=== PATIENT | female | born 1935 | race Two or more races ===

== ENCOUNTER 2020-03-19 08:33 | Outpatient (REF) | payer OTHER, SELFPAY ==
--- NOTE | 2020-03-19 | US_ITS ---
EXAMINATION: US THYROID CLINICAL INFORMATION: Nontoxic multinodular goiter. COMPARISON: Ultrasound soft tissue head/neck thyroid dated 01/16/2019. TECHNIQUE: Linear transducer matthews-scale and color Doppler examination with attention to the region of the thyroid. FINDINGS: SIZE: Measurements of the thyroid lobes and nodules are given in sagittal, anteroposterior and transverse dimensions respectively. Right Thyroid Lobe: 4.3 x 2.9 x 2.3 cm, volume 14.9 mL. Previously 4.4 x 2.5 x 1.9 cm, volume 12.4 mL. Parenchyma: The gland echotexture is heterogeneous. Thyroid vascularity is normal. Left Thyroid Lobe: 5.1 x 2.9 x 2.5 cm, volume 19.8 mL. Previously 5.8 x 3.1 x 2.6 cm, volume 24.2 mL. Parenchyma: The gland echotexture is heterogeneous. Thyroid vascularity is normal. Isthmus: 0.2 cm in maximum AP dimension. Previously 0.4 cm. RIGHT THYROID LOBE: There is 1 nodule seen. 1. Location: Middle. Size: 2.3 x 1.3 x 2.0 cm. Previous: 2.3 x 1.2 x 1.7 cm. Nodule characteristics: Heterogeneous, hypoechoic rind and intranodular flow. ISTHMUS: No nodules. LEFT THYROID LOBE: There is 1 nodule seen. 1. Location: Middle. Size: 3.5 x 2.6 x 2.4 cm. Previous: 3.4 x 2.1 x 2.1 cm. Nodule characteristics: Heterogeneous, hypoechoic rind with intranodular flow. NODES: No lymphadenopathy is seen in the tissue surrounding the thyroid gland. US/US thyroid IMPRESSION: Slightly enlarged heterogenous thyroid gland with bilateral thyroid nodules. The thyroid nodules are abnormal by size, complex and have increased vascularity. By ACR TI-RADS definition, these are suspicious nodules and fine-needle biopsy can be performed.
== END 2020-03-19 08:34 | disposition home or self-care (01) ==
LOC: HO.US 08:33
PROVIDERS: Visit Provider Internal Medicine
DX: E04.2 Nontoxic multinodular goiter (principal)
CPT/HCPCS: 76536

== ENCOUNTER 2020-04-02 11:12 | Outpatient (REF) | payer MEDICARE, MEDICAID, SELFPAY ==
[2020-04-02 12:39] LABS: Albumin Level 4.4 g/dL (3.5-5.0)
[2020-04-02 13:12] LABS: Free T4 (Free Thyroxine) 0.95 ng/dL (0.71-1.85); Vitamin D 25-OH Total 32.1 ng/mL (>30)
[2020-04-02 13:16] LABS: Thyroid Stimulating Hormone 0.59 uIU/mL (0.32-4.0)
[2020-04-03 16:33] LABS: Calcium (PTHI) 10.1 mg/dL (8.6-10.4); PTHI 79 pg/mL (14-64)
== END 2020-04-02 11:13 | disposition home or self-care (01) ==
LOC: HO.LAB 11:12
PROVIDERS: PCP Internal Medicine; Visit Provider Internal Medicine
DX: E04.2 Nontoxic multinodular goiter (principal); E21.3 Hyperparathyroidism, unspecified; M81.0 Age-related osteoporosis without current pathological fracture; E55.9 Vitamin D deficiency, unspecified
CPT/HCPCS: 36415; 82040; 82306; 82310; 83970; 84439; 84443

== ENCOUNTER → 2020-04-03 10:19 | Outpatient (BNVA) | payer MEDICARE, MEDICAID, SELFPAY | PROVIDERS: Visit Provider Internal Medicine Cardiovascular Disease | DX: I35.0 Nonrheumatic aortic (valve) stenosis (principal); I10 Essential (primary) hypertension; E11.9 Type 2 diabetes mellitus without complications | CPT/HCPCS: 93005; 99212 ==

== ENCOUNTER → 2020-04-07 08:54 | Outpatient (BNVA) | payer MEDICARE, MEDICAID, SELFPAY | PROVIDERS: PCP Internal Medicine; Visit Provider Internal Medicine | DX: M81.0 Age-related osteoporosis without current pathological fracture (principal); E21.3 Hyperparathyroidism, unspecified; E04.2 Nontoxic multinodular goiter; E55.9 Vitamin D deficiency, unspecified | CPT/HCPCS: 99212 ==

== ENCOUNTER → 2020-04-10 10:06 | Outpatient (BNVA) | payer MEDICARE, MEDICAID, SELFPAY | PROVIDERS: PCP Internal Medicine; Visit Provider Internal Medicine Cardiovascular Disease ==

== ENCOUNTER → 2020-06-09 07:39 | Outpatient (BNVA) | payer MEDICARE, MEDICAID, SELFPAY | PROVIDERS: PCP Internal Medicine; Visit Provider Internal Medicine | DX: Z13.89 Encounter for screening for other disorder (principal) | CPT/HCPCS: Q3014 ==

== ENCOUNTER → 2020-06-26 09:20 | Outpatient (BNVA) | payer MEDICARE, MEDICAID, SELFPAY | PROVIDERS: PCP Internal Medicine; Visit Provider Internal Medicine Cardiovascular Disease | DX: I35.0 Nonrheumatic aortic (valve) stenosis (principal); I10 Essential (primary) hypertension; Z79.899 Other long term (current) drug therapy | CPT/HCPCS: 99212 ==

== ENCOUNTER 2020-07-03 08:54 | Outpatient (REF) | payer MEDICARE, MEDICAID, SELFPAY ==
[2020-07-03 11:52] LABS: Alanine Aminotransferase 48 U/L (0-31); Albumin Level 4.2 g/dL (3.5-5.0); Alkaline Phosphatase 91 U/L (39-117); Anion Gap 15 (12-20); Aspartate Amino Transferase 39 U/L (5-31); Bilirubin Total 0.5 mg/dL (0.0-1.0); Blood Urea Nitrogen 17 mg/dL (9-16); Calcium 9.4 mg/dL (8.4-10.2); Carbon Dioxide 23 mmol/L (22-29); Chloride 107 mmol/L (96-108); Cholesterol 220 mg/dL; Estimated Glomerular Filt Rate > 60; Glucose Fasting 144 mg/dL (60-99); HDL Cholesterol 58 mg/dL; LDL Cholesterol Calculated 124 mg/dl; Phosphorus 2.8 mg/dL (2.7-4.5); Potassium 3.8 mmol/L (3.3-5.1); Sodium 141 mmol/L (135-145); Total Protein 7.2 g/dL (6.5-8.0); Triglycerides 193 mg/dL
[2020-07-03 12:13] LABS: Free T4 (Free Thyroxine) 0.93 ng/dL (0.71-1.85); Thyroid Stimulating Hormone 0.49 uIU/mL (0.32-4.0); Vitamin D 25-OH Total 29.7 ng/mL (>30)
[2020-07-03 12:25] LABS: Creatinine Urine 19.34 mg/dL; Microalbumin Urine < 5.0 mg/L
[2020-07-03 13:10] LABS: Estimated Average Glucose 160 mg/dL; Hemoglobin A1c % 7.2 %
[2020-07-04 16:12] LABS: Calcium (PTHI) 9.2 mg/dL (8.6-10.4); PTHI 99 pg/mL (14-64)
== END 2020-07-03 08:55 | disposition home or self-care (01) ==
LOC: HO.LAB 08:54
PROVIDERS: Internal Medicine; Visit Provider Nurse Practitioner Family
DX: E21.3 Hyperparathyroidism, unspecified (principal); M81.0 Age-related osteoporosis without current pathological fracture; E11.9 Type 2 diabetes mellitus without complications; R74.8 Abnormal levels of other serum enzymes; E04.2 Nontoxic multinodular goiter; E55.9 Vitamin D deficiency, unspecified
CPT/HCPCS: 36415; 80053; 80061; 82043; 82306; 83036; 83970; 84100; 84439; 84443

== ENCOUNTER 2020-07-03 09:19 | Outpatient (REF) | payer MEDICARE, MEDICAID, SELFPAY | END 2020-07-03 09:20 | disposition home or self-care (01) | LOC: HO.HMGCLDS 09:19 | PROVIDERS: PCP Nurse Practitioner Family; Visit Provider Nurse Practitioner Family | DX: Z13.89 Encounter for screening for other disorder (principal) ==

== ENCOUNTER 2020-07-15 08:41 | Outpatient (REF) | payer MEDICARE, MEDICAID, SELFPAY ==
[2020-07-15 12:07] LABS: Free T4 (Free Thyroxine) 0.96 ng/dL (0.71-1.85); Thyroid Stimulating Hormone 0.72 uIU/mL (0.32-4.0)
[2020-07-15 12:17] LABS: TSH reflex Free T4 0.72 uIU/mL (0.32-4.0)
[2020-07-15 12:23] LABS: Alanine Aminotransferase 23 U/L (0-31); Albumin Level 4.5 g/dL (3.5-5.0); Alkaline Phosphatase 94 U/L (39-117); Anion Gap 13 (12-20); Aspartate Amino Transferase 22 U/L (5-31); Bilirubin Total 0.6 mg/dL (0.0-1.0); Blood Urea Nitrogen 17 mg/dL (9-16); Carbon Dioxide 29 mmol/L (22-29); Chloride 103 mmol/L (96-108); Cholesterol 229 mg/dL; Estimated Glomerular Filt Rate > 60; Glucose Fasting 141 mg/dL (60-99); HDL Cholesterol 63 mg/dL; LDL Cholesterol Calculated 132 mg/dl; Potassium 4.1 mmol/L (3.3-5.1); Sodium 141 mmol/L (135-145); Total Protein 7.5 g/dL (6.5-8.0); Triglycerides 172 mg/dL
[2020-07-15 12:25] LABS: Creatinine Urine 57.58 mg/dL; Microalbum/Creatinine Ratio Ur 32.9 ug/mg cr
[2020-07-16 08:10] LABS: Hepatitis A Antibody IgM 0.33 Index (0-0.79); ~HepC Num1 0.07 S/CO (0.00-0.79); ~Hepatitis A Antibody IgM Nonreactive (Nonreactive); ~Hepatitis C Antibody Nonreactive (Nonreactive)
[2020-07-16 08:25] LABS: HBS Num1 14.65 mIU/mL (0-7.99); HBc Num1 0.04 S/CO (0.00-0.79); HBsAGNum1 0.31 S/CO (0.00-0.99); Hepatitis B Core Antibody Nonreactive (Nonreactive); Hepatitis B Surface Antigen Negative (Negative); ~Hepatitis B Surface Antibody REACTIVE (Nonreactive)
== END 2020-07-15 08:42 | disposition home or self-care (01) ==
LOC: HO.HMGCLDS 08:41
PROVIDERS: PCP Nurse Practitioner Family; Visit Provider Internal Medicine
DX: E11.9 Type 2 diabetes mellitus without complications (principal); R74.8 Abnormal levels of other serum enzymes; E21.3 Hyperparathyroidism, unspecified; E04.2 Nontoxic multinodular goiter
CPT/HCPCS: 36415; 80053; 80061; 82043; 84439; 84443; 86704; 86706; 86709; 86803; 87340

== ENCOUNTER 2020-07-21 08:23 | Outpatient (REF) | payer MEDICARE, MEDICAID, SELFPAY ==
--- NOTE | ~2020-07-21 | US_ITS ---
EXAMINATION: US ABDOMEN COMPLETE CLINICAL INFORMATION: Abnormal levels of other serum enzymes. COMPARISON: Ultrasound renal with bladder 06/10/2014. TECHNIQUE: Real-time imaging of the abdominal viscera. FINDINGS: PANCREAS: Normal. ABDOMINAL AORTA: The proximal, mid, and distal segments are normal in caliber. INFERIOR VENA CAVA: Visualized portions are normal. LIVER: The liver is normal in size. The liver contour is normal. There is diffuse increased echogenicity with areas of focal fatty sparing in the right hepatic lobe. There are 2 anechoic cysts measuring 1.3 x 1.0 x 1.0 and 0.6 x 0.5 x 0.5 cm in right hepatic lobe. There is no intrahepatic biliary duct dilatation seen. GALLBLADDER: The gallbladder is physiologically distended. Multiple mobile gallstones are present. There is a positive ELAN sign. No evidence of gallbladder wall thickening or pericholecystic fluid. COMMON BILE DUCT: Normal in caliber measuring 0.8 cm in diameter. RIGHT KIDNEY: 10.9 No hydronephrosis or focal parenchymal lesions. The kidney measures 10.9 cm in maximum dimension. There is an echogenic stone lower pole measuring 0.3 x 0.2 cm. An anechoic cyst also in the lower pole measures 1.9 x 1.5 x 1.7 cm. LEFT KIDNEY: There is mild left kidney pelvic fullness with a anechoic cyst in lower pole measuring 0.8 x 0.8 x 0.7 cm. No hydronephrosis or renal calculi. The kidney measures 10.4 cm in maximum dimension. SPLEEN: Normal. The spleen measures 8.1 cm in maximum dimension. FREE FLUID: None. US/US abdomen complete IMPRESSION: Hepatic steatosis with areas of focal fatty sparing. There are 2 right hepatic lobe cysts. An echogenic nonobstructive stone and a cyst in the lower pole right kidney. Anechoic cyst lower pole left kidney with mild pelvic fullness. Gallstones with positive ELAN sign.
== END 2020-07-21 08:24 | disposition home or self-care (01) ==
LOC: HO.US 08:23
PROVIDERS: Visit Provider Nurse Practitioner Family
DX: R74.8 Abnormal levels of other serum enzymes (principal)
CPT/HCPCS: 76700

== ENCOUNTER → 2020-08-04 09:09 | Outpatient (BNVA) | payer MEDICARE, MEDICAID, SELFPAY | PROVIDERS: PCP Nurse Practitioner Family; Referring Provider Nurse Practitioner Family; Visit Provider Internal Medicine Cardiovascular Disease ==

== ENCOUNTER → 2020-09-02 09:13 | Outpatient (BNVA) | payer MEDICARE, MEDICAID, SELFPAY | PROVIDERS: PCP Nurse Practitioner Family; Referring Provider Nurse Practitioner Family; Visit Provider Internal Medicine Cardiovascular Disease ==

== ENCOUNTER 2020-10-21 08:17 | Outpatient (REF) | payer MEDICARE, MEDICAID, SELFPAY ==
--- NOTE | ~2020-10-21 | MM_ITS ---
EXAMINATION: BONE DENSITOMETRY CLINICAL INDICATION: Osteoporosis. COMPARISON: Previous BD dated 10/17/2018 and baseline BD dated 10/16/2007. TECHNIQUE: Using a elastic.io DXA System (software version: 13.1) manufactured by [facility], dual-energy x-ray absorptiometry was performed of the lumbar spine and left hip. The images are of good technical quality. Summary results are attached. FINDINGS: AP SPINE L1-L4: Current: BMD 0.942 g/cm2, Z-score 0.0, T-score -2.0, osteopenia, 6.4% increase from previous, 7.5% increase from baseline (<5% change is not significant). Prior: BMD 0.885 g/cm2. Baseline: BMD 0.876 g/cm2. LEFT FEMUR, NECK: Current: BMD 0.640 g/cm2, Z-score -0.5, T-score -2.9, osteoporosis. Prior: BMD 0.624 g/cm2. Baseline: BMD 0.701 g/cm2. LEFT FEMUR, TOTAL: Current: BMD 0.682 g/cm2, Z-score -0.3, T-score -2.6, osteoporosis, 0.0% change from previous, 11.8% decrease from baseline (<5% change is not significant). Prior: BMD 0.682 g/cm2. Baseline: BMD 0.773 g/cm2. IDENTIFIED RISK FACTORS: Early menopause, history of fracture (adult), secondary osteoporosis. HISTORY OF FRACTURE: Wrist. MEDICATIONS: Calcium, vitamin D. MM/XR DEXA axial skeleton IMPRESSION: 1. DIAGNOSIS: Severe osteoporosis based on the lowest T-score value of -2.9 in the femoral neck and history of fracture of wrist applying World Health Organization criteria. 2. 10-YEAR FRACTURE RISK PREDICTION, FRAX: Major osteoporotic fracture (clinical spine, forearm, hip or shoulder) 20.3%. Hip fracture 7.0%. 3. Treatment Recommendations: NOF guidelines recommend consideration for treatment in postmenopausal women and men age 50 and older presenting with the following: -A hip or vertebral (clinical or morphometric) fracture. -T-score less than or equal to -2.5 at the femoral neck or spine after appropriate evaluation to exclude secondary causes. -Low bone mass at the hip or spine and a 10-year fracture probability by FRAX of greater than or equal to 3% for hip fracture or greater than or equal to 20% for major osteoporotic fracture based on the [place] adapted WHO algorithm. 4. Other Recommendations: All treatment decisions require clinical judgment and consideration of individual patient factors, including patient preferences, comorbidities, previous drug use, risk factors not captured in the FRAX model (e.g. frailty, falls, vitamin D deficiency, increased bone turnover, interval significant decline in bone density) and possible under or overestimation of fracture risk by FRAX. Additional medical evaluation for secondary cause of low bone mineral density may be appropriate. FUTURE SCAN RECOMMENDATION: People with diagnosed cases of osteoporosis or at high risk for fracture should have regular bone mineral density tests. For patients eligible for Medicare, routine testing is allowed once every 2 years. The testing frequency can be increased to one year for patients who have rapidly progressing disease, those who are receiving or discontinuing medical therapy to restore bone mass, or have additional risk factors.
== END 2020-10-21 08:18 | disposition home or self-care (01) ==
LOC: HO.MAMMO 08:17
PROVIDERS: Visit Provider Nurse Practitioner Family
DX: M81.0 Age-related osteoporosis without current pathological fracture (principal); Z78.0 Asymptomatic menopausal state
CPT/HCPCS: 77080

== ENCOUNTER → 2020-10-28 08:01 | Outpatient (REF) | payer MEDICARE, MEDICAID, SELFPAY ==
--- NOTE | 2020-10-28 08:05 | CA_ITS ---
Transthoracic Echocardiogram Patient (Last, First, Middle): Vanesa Contreras, Gender: Female Date of : 1935 Age: 85 Procedure Date: 10/28/2020 Procedure Type: Transthoracic Echocardiogram Location: OP Height: 149.86 cm Weight: 61.24 kg BSA: 1.56 m2 Heart Rate: bpm BP: 134 / 76 mmHg [employer] Operator: [facility] MD: Viet Lee MD Symptoms: I35.0 - Nonrheumatic aortic (valve) stenosis Study Quality: Fair ECG Rhythm: Sinus Conclusions: - The left ventricular systolic function is hyperdynamic. The calculated ejection fraction is 71% by biplane method. - There is mild calcification of the aortic valve. There is no aortic valve stenosis. Findings Left Ventricle Normal left ventricular cavity size. There is mildly increased left ventricular wall thickness. The left ventricular systolic function is hyperdynamic. The calculated ejection fraction is 71% by biplane method. There is no evidence of regional wall motion abnormalities. There is no dynamic left ventricular outflow tract obstruction. E/E prime ratio is between 8 and 15 consistent with indeterminate filling pressures. Evidence suggests grade I (mild) diastolic dysfunction. Right Ventricle Normal right ventricular cavity size and systolic function. Atria Both atria are normal in size. Aortic Valve There is mild calcification of the aortic valve. There is no aortic valve stenosis. The mean gradient is 9 mmHg. The aortic valve area is 2.07 cm2. There is trace (trivial) aortic valve regurgitation. Mitral Valve The mitral valve appears normal. There is trace mitral valve regurgitation. There is no mitral valve stenosis. Pulmonic Valve The pulmonic valve was not well visualized. Tricuspid Valve Normal tricuspid valve structure. There is trace tricuspid valve regurgitation. The pulmonary artery systolic pressure is normal. Great Vessels The aortic annulus, sinuses of valsalva, asc aorta, and aortic arch are normal in size. Small plaque is seen in the sino tubular ridge. Venous The inferior vena cava is normal in size and collapses greater than 50% with inspiration. Pericardium/Pleural There is a trivial pericardial effusion. Prior Study Comparison No significant change compared to prior study dated: 10/25/2019. Measurements 2D Linear Measurements RVIDd: 3.17 RVIDd Index: 2.03 IVSd: 1.08 0.6-0.9/0.6-1.0 cm LVIDd: 3.74 3.9-5.3/4.2-5.9 cm LVIDd Index: 2.40 2.4-3.2/2.2-3.1 cm/m2 LVIDs: 2.21 2.0-3.6 cm LVPWd: 1.28 0.7-1.1 cm Ao Root: 2.50 2.1-3.5 cm LA Diam: 3.50 2.7-3.8/3.0-4.0 cm LAIDs Index: 2.24 1.5-2.3 cm/m2 LV Mass: 181.65 67-162/88-224 g LV Mass Index: 116.44 43-95/49-115 g/m2 LVOT Diam: 1.90 3.0+(-)1.3 cm 2D Systolic Function EF 4C: 65.40 >55% EF 2C: 76.50 >55% EF BiP: 71.10 >55% Mitral Valve MV Pk E: 0.50 MV PK A: 0.74 MV Decel Time: 378.00 E/A: 0.70 E'Lateral: 5.22 E'Medial: 3.81 E/E' Med: 13.00 E/E' Lat: 9.50 Aortic Valve AoV Pk Sy: 1.95 AoV Mn Sy: 1.43 AoV VTI: 0.46 AoV Pk Grad: 15.00 Aov Mn Grad: 9.00 JOSE MIGUEL Cont.VTI: 2.07 LVOT LVOT Pk Sy: 1.36 LVOT Mn Sy: 0.92 LVOT VTI: 0.33 LVOT Pk Grad: 7.00 LVOT Mn Grad: 4.00 LVOT Diam: 1.90 LVOT Area: 2.84 Diastolic Function MV Pk E: 0.50 MV Pk A: 0.74 E/A: 0.70 E'Medial: 3.81 E/E' Med: 13.00 E' Laterial: 5.22 E/E' Lat: 9.50 Right Ventricle TAPSE (mm): 27.00 TVS' Sy: 11.70 Tricuspid Valve TR Pk Sy: 2.29 TR Pk Grad: 21.00 RA Press: 3.00 RVSP: 24.00 Great Vessels Aorta Ao Root-2D: 2.50 2.0-3.7 cm Ao Asc: 3.20 2.1-3.4 cm Ao Arch: 2.50 Updated in Other Vendor System with Status of Final Janes May MD electronically signed on 10/28/2020 4:44:21 PM with status of Final
== END ==
LOC: HO.CARD 08:01
PROVIDERS: PCP Internal Medicine; Visit Provider Internal Medicine Cardiovascular Disease
DX: I35.0 Nonrheumatic aortic (valve) stenosis (principal)
CPT/HCPCS: 93306

== ENCOUNTER → 2020-12-15 12:50 | Outpatient (BNVA) | payer MEDICARE, MEDICAID, SELFPAY | PROVIDERS: PCP Nurse Practitioner Family; Referring Provider Nurse Practitioner Family; Visit Provider Internal Medicine Cardiovascular Disease | DX: I35.0 Nonrheumatic aortic (valve) stenosis (principal); I10 Essential (primary) hypertension | CPT/HCPCS: 93005; 99212 ==

== ENCOUNTER 2020-12-18 08:58 | Outpatient (REF) | payer MEDICARE, MEDICAID, SELFPAY ==
[2020-12-18 11:42] LABS: Estimated Average Glucose 146 mg/dL; Hemoglobin A1c % 6.7 %
[2020-12-18 11:50] LABS: Alanine Aminotransferase 18 U/L (0-31); Albumin Level 4.4 g/dL (3.5-5.0); Alkaline Phosphatase 92 U/L (39-117); Anion Gap 13 (12-20); Aspartate Amino Transferase 16 U/L (5-31); Bilirubin Total 0.7 mg/dL (0.0-1.0); Blood Urea Nitrogen 26 mg/dL (9-16); Calcium 9.8 mg/dL (8.4-10.2); Carbon Dioxide 25 mmol/L (22-29); Chloride 103 mmol/L (96-108); Cholesterol 202 mg/dL; Estimated Glomerular Filt Rate 55; Glucose Fasting 158 mg/dL (60-99); HDL Cholesterol 61 mg/dL; LDL Cholesterol Calculated 120 mg/dl; Potassium 3.9 mmol/L (3.3-5.1); Sodium 137 mmol/L (135-145); Total Protein 7.4 g/dL (6.5-8.0); Triglycerides 105 mg/dL
== END 2020-12-18 08:59 | disposition home or self-care (01) ==
LOC: HO.HMGCLDS 08:58
PROVIDERS: PCP Nurse Practitioner Family; Visit Provider Nurse Practitioner Family
DX: E11.9 Type 2 diabetes mellitus without complications (principal)
CPT/HCPCS: 36415; 80053; 80061; 83036

== ENCOUNTER 2021-03-23 11:27 | Outpatient (REF) | payer MEDICARE, MEDICAID, SELFPAY ==
[2021-03-23 14:07] LABS: Estimated Average Glucose 146 mg/dL; Hemoglobin A1c % 6.7 %
[2021-03-23 14:09] LABS: Appearance Urine CLEAR; Color Urine YELLOW; Glucose Urine UA NEG (NEG); Leukocyte Esterase Urine NEG (NEG); Nitrite Urine NEG (NEG); Specific Gravity - Urine 1.015 (1.005-1.025); Urine Blood NEG (NEG); Urine Ketones NEG (NEG); Urine Protein NEG (NEG-TRACE)
[2021-03-23 14:15] LABS: Blood Urea Nitrogen 16 mg/dL (9-16)
[2021-03-23 14:17] LABS: Alanine Aminotransferase 22 U/L (0-31); Albumin Level 4.1 g/dL (3.5-5.0); Alkaline Phosphatase 87 U/L (39-117); Anion Gap 12 (12-20); Aspartate Amino Transferase 21 U/L (5-31); Bilirubin Total 0.5 mg/dL (0.0-1.0); Blood Urea Nitrogen 16 mg/dL (9-16); Calcium 9.9 mg/dL (8.4-10.2); Carbon Dioxide 28 mmol/L (22-29); Chloride 104 mmol/L (96-108); Cholesterol 211 mg/dL; Estimated Glomerular Filt Rate > 60; Glucose Fasting 121 mg/dL (60-99); HDL Cholesterol 62 mg/dL; LDL Cholesterol Calculated 123 mg/dl; Sodium 140 mmol/L (135-145); Total Protein 7.2 g/dL (6.5-8.0); Triglycerides 130 mg/dL
[2021-03-23 14:37] LABS: TSH reflex Free T4 0.41 uIU/mL (0.32-4.0)
[2021-03-23 14:38] LABS: Creatinine Urine 87.14 mg/dL; Microalbum/Creatinine Ratio Ur 5.7 ug/mg cr
== END 2021-03-23 11:28 | disposition home or self-care (01) ==
LOC: HO.HMGCLDS 11:27
PROVIDERS: Internal Medicine; PCP Internal Medicine; Visit Provider Nurse Practitioner Family
DX: M81.0 Age-related osteoporosis without current pathological fracture (principal); E11.9 Type 2 diabetes mellitus without complications
CPT/HCPCS: 36415; 80053; 80061; 81003; 82043; 83036; 84443; 84520

== ENCOUNTER 2021-04-02 07:35 | Outpatient (REF) | payer MEDICARE, MEDICAID, SELFPAY ==
--- NOTE | ~2021-04-02 | US_ITS ---
EXAMINATION: US THYROID CLINICAL INFORMATION: Nontoxic multinodular goiter. COMPARISON: Ultrasound thyroid 03/19/2020 and 01/16/2019. TECHNIQUE: Linear transducer grayscale and color Doppler examination with attention to the region of the thyroid. FINDINGS: SIZE: Measurements of the thyroid lobes and nodules are given in sagittal, anteroposterior and transverse dimensions respectively. Right Thyroid Lobe: 4.3 x 2.8 x 1.9 cm, volume 12.0 mL. Previously 4.3 x 2.9 x 2.3 cm, volume 14.9 mL. Parenchyma: The gland echotexture is heterogeneous. Thyroid vascularity is increased. Left Thyroid Lobe: 5.1 x 2.7 x 2.5 cm, volume 18.0 mL. Previously 5.8 x 3.1 x 2.6 cm, volume 24.2 mL. Parenchyma: The gland echotexture is heterogeneous. Thyroid vascularity is increased. Isthmus: 0.3 cm in maximum AP dimension. Previously 0.2 cm. Estimated total number of nodules greater than or equal to 1 cm: 3. [place] nodules are described as follows: 1. Location: Right mid/inferior. Size: 2.4 x 1.4 x 1.7 cm, volume 3.0 mL. Previously: 2.3 x 1.3 x 2.0 cm, volume 3.1 mL. Nodule characteristics: Composition: Solid/almost completely solid (2). Echogenicity: Hyperechoic (1). Shape: Not taller than wide (0). Margins: Ill-defined (0). Echogenic Foci: None (0). ACR TI-RADS total points: 3 ACR TI-RADS category: 3 Significant change in size (>/= 20% in 2 dimensions and minimal increase of 2 mm or 50% or greater increase in volume): None Change in features: None Change in ACR TI-RADS risk category: Not applicable. 2. Location: Left mid. Size: 3.6 x 2.4 x 2.5 cm, volume 11.3 mL. Previously: 3.5 x 2.6 x 2.4 cm, volume 11.4 mL. Nodule characteristics: Composition: Solid/almost completely solid (2). Echogenicity: Hyperechoic (1). Shape: Not taller than wide (0). Margins: Smooth (0). Echogenic Foci: None (0). ACR TI-RADS total points: 3 ACR TI-RADS category: 3 Significant change in size (>/= 20% in 2 dimensions and minimal increase of 2 mm or 50% or greater increase in volume): None Change in features: None Change in ACR TI-RADS risk category: Not applicable. 3. Location: Left isthmus. New. Size: 1.0 x 1.4 x 1.2 cm, volume 0.9 mL. Previously: New since the previous study. Nodule characteristics: Composition: Solid (2). Echogenicity: Hyperechoic (1). Shape: Taller than wide (3). Margins: Smooth (0). Echogenic Foci: None (0). ACR TI-RADS total points: 6 ACR TI-RADS category: 4 NODES: No lymphadenopathy is seen in the tissue surrounding the thyroid gland. US/US thyroid IMPRESSION: Enlarged heterogeneous and hypervascular thyroid gland consistent with multinodular goiter. Previous nodules are stable. There is a new nodule in the left isthmus with total points of 6. Recommend short-term follow-up in 6 months to one year. ACR TI-RADS RECOMMENDATION REFERENCE: Ultrasound-guided fine-needle aspiration, followup ultrasound, no further follow up. * TR1 (0 point) and TR 2 (2 points): No FNA or follow up * TR3 (3 points): FNA if more than or equal to 2.5 cm in maximum dimension, followup ultrasound in 1, 3 and 5 years if 1.5 to 2.4 cm in maximum dimension. * TR4 (4-6 points): FNA if more than or equal to 1.5 cm in maximum dimension, followup ultrasound in 1, 2, 3 and 5 years if 1 to 1.4 cm in maximum dimension. * TR5 (more than or equal to 7 points): FNA if more than or equal to 1 cm in maximum dimension, followup ultrasound every year for 5 years if 0.5 to 0.9 cm in maximum dimension. * TR3, TR4 or TR5 nodules that are below the size threshold for follow up receive no follow up.
== END 2021-04-02 07:36 | disposition home or self-care (01) ==
LOC: HO.US 07:35
PROVIDERS: PCP Internal Medicine; Visit Provider Internal Medicine
DX: E04.2 Nontoxic multinodular goiter (principal)
CPT/HCPCS: 76536

== ENCOUNTER → 2021-04-13 08:11 | Outpatient (BNVA) | payer MEDICARE, MEDICAID, SELFPAY | PROVIDERS: PCP Nurse Practitioner Family; Visit Provider Internal Medicine | DX: E21.3 Hyperparathyroidism, unspecified (principal); E04.2 Nontoxic multinodular goiter; M81.0 Age-related osteoporosis without current pathological fracture; E55.9 Vitamin D deficiency, unspecified; R73.03 Prediabetes | CPT/HCPCS: 99212 ==

== ENCOUNTER → 2021-06-15 08:37 | Outpatient (BNVA) | payer MEDICARE, MEDICAID, SELFPAY | PROVIDERS: PCP Nurse Practitioner Family; Referring Provider Nurse Practitioner Family; Visit Provider Internal Medicine Cardiovascular Disease | DX: I35.0 Nonrheumatic aortic (valve) stenosis (principal); I10 Essential (primary) hypertension; Z79.899 Other long term (current) drug therapy | CPT/HCPCS: 93005; 99212 ==

== ENCOUNTER → 2021-09-21 08:06 | Outpatient (BNVA) | payer MEDICARE, MEDICAID, SELFPAY | PROVIDERS: PCP Nurse Practitioner Family; Referring Provider Nurse Practitioner Family; Visit Provider Internal Medicine Cardiovascular Disease | DX: I35.0 Nonrheumatic aortic (valve) stenosis (principal); I10 Essential (primary) hypertension | CPT/HCPCS: 99212 ==

== ENCOUNTER 2021-10-15 08:52 | Outpatient (REF) | payer MEDICARE, MEDICAID, SELFPAY ==
--- NOTE | 2021-10-15 09:21 | PM.OP ---
Brief Operative Note Date of Service: 10/15/21 Pre-op diagnosis: Multinodular Thyroid Procedure: EXAMINATION: US THYROID CLINICAL INFORMATION: Multinodular Thyroid COMPARISON: Prior TECHNIQUE: Linear transducer matthews-scale and color Doppler examination with attention to the region of the thyroid. FINDINGS: US was completed of the Patient's thyroid with images obtained of her L isthmus 1.3 cm thyroid nodule. This nodule was found to be isoechoic with regular margins and no concerning characteristics. This was determined to be low suspicion for malignancy, with DEJAH guidelines recommending FNA biopsy only when greater than or equal to 1.5 cm in largest dimension. Discussed with the Patient that no FNA biopsy is indicated today and we will continue with yearly US surveillance of her nodules to assess for any concerning growth or changes in the nodules that would warrant repeat FNA biopsy. All of her questions were answered. She is in agreement with this plan of care. Surgeon: Keena Sherwood, DO Was an Banking Officer used for this Procedure?: No Estimated blood loss (mL): 0
== END 2021-10-15 08:53 | disposition home or self-care (01) ==
LOC: HO.US 08:52
PROVIDERS: Visit Provider Internal Medicine
DX: E04.2 Nontoxic multinodular goiter (principal)
CPT/HCPCS: 76536

== ENCOUNTER → 2021-10-29 12:48 | Outpatient (BNVA) | payer MEDICARE, MEDICAID, SELFPAY | PROVIDERS: PCP Nurse Practitioner Family; Visit Provider Internal Medicine | DX: E04.2 Nontoxic multinodular goiter (principal); E21.3 Hyperparathyroidism, unspecified; M81.0 Age-related osteoporosis without current pathological fracture; E55.9 Vitamin D deficiency, unspecified | CPT/HCPCS: 99212 ==

== ENCOUNTER → 2022-01-07 08:17 | Outpatient (BNVA) | payer MEDICARE, MEDICAID, SELFPAY | PROVIDERS: PCP Nurse Practitioner Family; Referring Provider Nurse Practitioner Family; Visit Provider Internal Medicine Cardiovascular Disease | DX: I35.0 Nonrheumatic aortic (valve) stenosis (principal); I10 Essential (primary) hypertension | CPT/HCPCS: 99212 ==

== ENCOUNTER 2022-01-13 08:19 | Outpatient (REF) | payer MEDICARE, MEDICAID, SELFPAY | END 2022-01-13 08:20 | disposition home or self-care (01) | LOC: HO.SH 08:19 | PROVIDERS: Visit Provider Nurse Practitioner Family | DX: Z01.118 Encounter for examination of ears and hearing with other abnormal findings (principal); H90.3 Sensorineural hearing loss, bilateral | CPT/HCPCS: 92557; 92567 ==

== ENCOUNTER 2023-05-23 09:14 | Outpatient (REF) | payer OTHER, SELFPAY ==
[2023-05-23 11:19] LABS: Appearance Urine Cloudy; Color Urine Dark Yellow; Glucose Urine UA 250 mg/dL (Negative); Leukocyte Esterase Urine Moderate (2+) (Negative); Nitrite Urine Negative (Negative); PH 5.5 (5.0-9.0); Specific Gravity - Urine >= 1.030 (1.005-1.025); UMIC TRIGGER UACC YES; Urine Blood Negative (Negative); Urine Ketones Negative (Negative); Urine Protein Trace mg/dL (Neg-Trace)
[2023-05-23 11:21] LABS: MANUAL DIFF FLAG NO
[2023-05-23 11:26] LABS: Bacteria Urine Trace (None Seen); Hyaline Casts Urine 0-2 /LPF (0-2); RBC Urine 0-2 /HPF (0-2); UACC Culture Trigger YES; WBC Urine >50 /HPF (0-5)
[2023-05-23 11:41] LABS: Basophils Absolute Auto 0.1 X10*3/uL (0.0-0.2); Basophils Percent Auto 0.8 % (0-2); Eosinophils Absolute Auto 0.2 X10*3/uL (0.0-0.4); Eosinophils Percent Auto 3.5 % (0-4); Hematocrit 44.5 % (37.0-47.0); Hemoglobin 15.1 g/dl (12.0-16.0); Imm Gran Abs Auto 0.03 X10*3/uL (0.00-0.03); Imm Gran Pct Auto 0.5 % (0.0-0.4); Lymphocytes Absolute Auto 2.7 X10*3/uL (1.2-4.9); Lymphocytes Percent Auto 41.6 % (20-40); Mean Corpuscular HGB Conc 33.9 g/dl (31.0-35.0); Mean Corpuscular Hemoglobin 29.8 pg (27.0-33.0); Mean Corpuscular Volume 87.9 fL (80.0-98.0); Mean Platelet Volume 11.1 fL (9.4-12.3); Monocytes Absolute Auto 0.5 X10*3/uL (0.1-1.2); Monocytes Percent Auto 7.6 % (2-11); Platelet Count 229 X10*3/uL (160-400); Red Blood Count 5.06 X10*6/uL (4.20-5.50); Red Cell Distribution Width 12.9 % (11.0-16.0); White Blood Count 6.5 X10*3/uL (4.8-10.8)
[2023-05-23 12:02] LABS: Estimated Average Glucose 280 mg/dL; Hemoglobin A1c % 11.4 % (<6.0)
[2023-05-23 12:03] LABS: Alanine Aminotransferase 23 U/L (0-31); Albumin Level 4.1 g/dL (3.5-5.0); Alkaline Phosphatase 94 U/L (39-117); Anion Gap 11 (12-20); Aspartate Amino Transferase 20 U/L (5-31); Bilirubin Total 0.5 mg/dL (0.0-1.0); Blood Urea Nitrogen 15 mg/dL (9-16); Calcium 9.6 mg/dL (8.4-10.2); Carbon Dioxide 28 mmol/L (22-29); Chloride 103 mmol/L (96-108); Cholesterol 219 mg/dL (<200); Estimated Glomerular Filt Rate > 60; Glucose Fasting 269 mg/dL (60-99); HDL Cholesterol 62 mg/dL (>40); LDL Cholesterol Calculated 135 mg/dL (<100); Potassium 4.2 mmol/L (3.3-5.1); Sodium 138 mmol/L (135-145); Total Protein 7.3 g/dL (6.5-8.0); Triglycerides 110 mg/dL (<150)
[2023-05-23 12:20] LABS: Vitamin D 25-OH Total 53.7 ng/mL (>30)
[2023-05-23 12:46] LABS: Creatinine Urine 207.67 mg/dL; Microalbum/Creatinine Ratio Ur 30.8 ug/mg cr (<30)
== END 2023-05-23 09:15 | disposition home or self-care (01) ==
LOC: HO.HMGCLDS 09:14
PROVIDERS: PCP Nurse Practitioner Family; Visit Provider Nurse Practitioner Family
DX: E11.9 Type 2 diabetes mellitus without complications (principal); I10 Essential (primary) hypertension; E55.9 Vitamin D deficiency, unspecified; M81.0 Age-related osteoporosis without current pathological fracture; R82.90 Unspecified abnormal findings in urine
CPT/HCPCS: 36415; 80053; 80061; 81001; 82043; 82306; 82570; 83036; 84443; 85025; 87086

== ENCOUNTER 2023-07-28 08:57 | Outpatient (AMB) | payer OTHER, SELFPAY ==
--- NOTE | 2023-07-28 09:02 | MHC.PC.OV ---
Vital Signs 07/28/23 09:04 Height 4 ft 11 in Weight 129 lb BMI 26.1 BP 120/76 Blood Pressure Location Lt brachial Position Sitting Pulse 57 Pulse Source Pulse Oximeter Pulse Oximetry (%) 96 Oxygen Delivery Method Room Air Intake Visit Reasons: Annual PE Intake Note: Patient here for physical exam. Pt needs a new glucometer Allergies nickel [NICKEL] Allergy (Unknown, Verified 07/28/23 09:04) RASH HAIR DYE Allergy (Unknown, Uncoded 07/28/23 09:04) SWELLING latex Allergy (Unknown, Uncoded 07/28/23 09:04) itch leather products Allergy (Unknown, Uncoded 07/28/23 09:04) Unknown METAL Allergy (Unknown, Uncoded 07/28/23 09:04) RASH,ITCHING Tobacco use date assessed: 07/28/23 Fall risk assessment: No Falls in past year Last assessed Fall Risk: 07/28/23 Dental Screening Dental Screen Date: 07/28/23 Did you have a dental visit in the last 12 months?: Yes Did you have a dental problem in the last 6 months where you did not have access to dental care?: No Was dental information given to patient?: Patient has dentist HPI Annual PE HPI Details Pt is a diabetic, on an ARB and a statin. Last A1C was 11.4, microalbumin is up to date. Denies polyuria, polydipsia, and neuropathy. Pt denies any signs and symptoms of hypoglycemia and does know how to correct it. Will increase her jardiance from 10mg to 25mg. Reinforced the importance of proper diet. Due for eye exam, will refer. Pt needs a new glucometer, will send. Hx of aortic stenosis. Will order repeat echo. Hx of multinodular goiter. Will repeat thyroid US. Bone density has been ordered. Refused pneumonia vaccine. [facility] Medical History Vitamin D deficiency Nontoxic multinodular goiter HTN (hypertension) Aortic valve stenosis Nodular goiter Hyperparathyroidism Osteoporosis Diabetes Surgical History History of esophagogastroduodenoscopy (EGD) Family History Mother HTN (hypertension) Father No problems noted. Son Mental health disorder Social History Housing: Condominium Alcohol intake: never Patient Tobacco Use Status: Never used Tobacco service: No Current occupational status: retired Cognitive needs: No Hearing needs: No Vision needs: Yes Questionnaire PHQ-9 Over the last 2 weeks, how often have you been bothered by any of the following problems? 1. Little interest or pleasure in doing things: not at all 2. Feeling down, depressed, or hopeless: not at all 3. Trouble falling or staying asleep, or sleeping too much: not at all 4. Feeling tired or having little energy: not at all 5. Poor appetite or overeating: not at all 6. Feeling bad about yourself - or that you are a failure or have let yourself or your family down: not at all 7. Trouble concentrating on things, such as reading the newspaper or watching television: not at all 8. Moving or speaking so slowly that other people could have noticed. Or the opposite - being so fidgety or restless that you have been moving around a lot more than usual: not at all 9. Thoughts that you would be better off or of hurting yourself in some way: not at all Total score: 0 Depression Screening Interpretation: Negative Depression Screening Done: Yes 65491 - PHQ-9 Billing: Yes Source: Developed by Drs. Dyllan Diaz, Claire Segura, Darian Cortez and colleagues, with an educational jan from [employer]. Thrive Questionnaire Date Thrive assessed: 07/28/23 I am a: Patient What is your living situation today?: I have a steady place to live Within the past 12 months, did the food you bought not last and you didn't have the money to get more?: Often true Within the past 12 months, did you worry whether your food would run out before you got money to buy more?: Often true Do you have trouble paying for medicines?: No Do you have trouble getting transportation to medical appointments?: No Do you have trouble paying your heating and electricity bill?: No Do you have trouble taking care of your child, family member or friend?: No Do you have trouble with day-to-day activities such as bathing, preparing meals, shopping, managing finances, etc.?: No Are you currently unemployed and looking for a job?: No Are you interested in more education?: No Currently or been in a relationship where the following occur: I choose not to answer this question THRIVE Score: 2 AUDIT C Alcohol Use Questionnaire (AUDIT-C) 1. How often do you have a drink containing alcohol?: Never 3. How often do you have six or more drinks on one occasion?: Never Total Score: 0 Score Reviewed/Action Taken: No ELY-7 AMB Questionnaire ELY-7 Date ELY - 7 assessed: 07/28/23 Feeling nervous, anxious, or on edge: 0 = Not at all Not being able to stop or control worryin = Not at all Worrying too much about different things: 0 = Not at all Trouble relaxin = Not at all Being so restless that it is hard to sit still: 0 = Not at all Becoming easily annoyed or irritable: 0 = Not at all Feeling afraid as if something awful might happen: 0 = Not at all Total ELY-7 score (0-4 normal; 5-9 mild; 10-14 moderate; 15-21 severe): 0 Source: Developed by Drs. Dyllan Diaz, Claire Segura, Darian Cortez and colleagues, with an educational jan from [employer]. ELY-7 Assessment Billing ELY-7 Assessment Tool: ELY-7 Assessment 70079 Review of Systems Const Reports as per HPI Physical exam (Primary Care) Vital Signs: Last Vital Signs Pulse 57 07/28/23 09:04 BP 120/76 07/28/23 09:04 Pulse Ox 96 07/28/23 09:04 Oxygen Delivery Method Room Air 07/28/23 09:04 BMI result Body Mass Index 26.1 Tobacco/Smoking Status: Tobacco use Status Tobacco use date assessed 07/28/23 07/28/23 09:07 Patient Tobacco Use Status Never used Tobacco 07/28/23 09:03 Depression Screening Interpretation: Negative Thrive Assessment: Date of Thrive Assessment Date Thrive assessed 03/23/21 07/28/23 09:03 Currently or been in a relationship where the following occur: I choose not to answer this question Const General: cooperative Orientation/consciousness: patient oriented x3 Resp Effort & Inspection: normal respiratory effort Auscultation: clear to auscultation bilaterally Cardio Rate: regular rate Rhythm: regular rhythm Heart sounds: S1 normal heart sound present, S2 normal heart sound present and Murmur heart sound present systolic Neuro General: patient oriented x3 Extrem Other: bilat feet: + sensation with use of monofilament, feet intact Psych Appearance: grossly normal Mental Status: mental status grossly normal Speech and movement: Normal speech and movement present Affect: normal affect Attitude: cooperative Thought process: Normal thought process present Thought content: Normal thought content present Insight: Good insight present (Psych) Judgement: Good judgement present (Psych) Assessment and Plan Assessment & Plan (1) Diabetes: Code(s): E11.9 - Type 2 diabetes mellitus without complications Plan: Labs ordered (2) Nontoxic multinodular goiter: Code(s): E04.2 - Nontoxic multinodular goiter Plan: Thyroid US ordered (3) Aortic valve stenosis: Code(s): I35.0 - Nonrheumatic aortic (valve) stenosis Plan: Echo ordered (4) Aortic valve stenosis: Code(s): I35.0 - Nonrheumatic aortic (valve) stenosis Plan: echo ordered Plan The patient agreed to the use of a manager medical writing for this encounter. Scribed for MICHELLE Andres by Aleyda De manager medical writing, on 07/28/2023 at 09:25 EST. Orders: Orders Comprehensive [place]. Panel Fast Today E11.9 - Type 2 diabetes mellitus without complications TSH reflex Free T4 Today E11.9 - Type 2 diabetes mellitus without complications UA CC w/rflx Micro + Cult Today E11.9 - Type 2 diabetes mellitus without complications US thyroid Today E04.2 - Nontoxic multinodular goiter Complete Blood Count Auto Diff Today E11.9 - Type 2 diabetes mellitus without complications Lipid Panel Today E11.9 - Type 2 diabetes mellitus without complications Vitamin D 25-OH Total Today E55.9 - Vitamin D deficiency, unspecified CA echo transthoracic complete Today I35.0 - Nonrheumatic aortic (valve) stenosis Referrals Ophthalmology Referral E11.9 - Type 2 diabetes mellitus without complications Medications: Changed From empagliflozin (Jardiance) 10 mg PO DAILY 90 tabs 0RF To empagliflozin 25 mg PO DAILY 90 tabs 0RF Coding Level of Care Code Est Pt Level 3 (35232) Diagnoses Diabetes E11.9 Nontoxic multinodular goiter E04.2 Aortic valve stenosis I35.0 Additional Codes ELY-7 Assessment Billing - ELY-7 Assessment Tool: ELY-7 Assessment [id number] ([id number])
[2023-07-28 09:04] VITALS: BP 120/76; PULSE 57; O2SAT 96; BMI 26.1
== END 2023-07-28 09:46 | disposition home or self-care (01) ==
PROVIDERS: PCP Nurse Practitioner Family; Visit Provider Nurse Practitioner Family
DX: Z00.00 Encounter for general adult medical examination without abnormal findings (principal); E11.9 Type 2 diabetes mellitus without complications; E04.2 Nontoxic multinodular goiter; I35.0 Nonrheumatic aortic (valve) stenosis
CPT/HCPCS: 99214; 99397

== ENCOUNTER 2023-08-01 12:43 | Outpatient (REF) | payer OTHER, SELFPAY ==
--- NOTE | ~2023-08-01 | US_ITS ---
EXAMINATION: US THYROID CLINICAL INFORMATION: Nontoxic multinodular goiter. COMPARISON: Ultrasound thyroid 04/02/2021 and 03/19/2020. TECHNIQUE: Linear transducer grayscale and color Doppler examination with attention to the region of the thyroid. FINDINGS: SIZE: Measurements of the thyroid lobes and nodules are given in sagittal, anteroposterior and transverse dimensions respectively. Right Thyroid Lobe: 4.6 x 2.7 x 2.2 cm, volume 14.3 mL. Previously 4.3 x 2.8 x 1.9 cm, volume 12.0 mL. Parenchyma: The gland echotexture is heterogeneous. Thyroid vascularity is increased. Left Thyroid Lobe: 5.4 x 2.6 x 2.7 cm, volume 19.9 mL. Previously 5.1 x 2.7 x 2.5 cm, volume 18.0 mL. Parenchyma: The gland echotexture is heterogeneous. Thyroid vascularity is increased. Isthmus: 0.3 cm in maximum AP dimension. Previously 0.3 cm. Estimated total number of nodules greater than or equal to 1 cm: 5. Human Services Instructor nodules are described as follows: 1. Location: Left midpole. Size: 3.3 x 2.1 x 2.6 cm, volume 9.23 mL. Previously: 3.6 x 2.4 x 2.5 cm, volume 11.3 mL. Nodule characteristics: Composition: Solid/almost completely solid (2). Echogenicity: Isoechoic (1). Shape: Not taller than wide (0). Margins: Smooth (0). Echogenic Foci: None (0). ACR TI-RADS total points: 3. Previous: 3. ACR TI-RADS category: 3. Previous: 3. Significant change in size (>/= 20% in 2 dimensions and minimal increase of 2 mm or 50% or greater increase in volume): No Change in features: No Change in ACR TI-RADS risk category: No 2. Location: Left lower isthmus. Size: 1.5 x 1.1 x 1.2 cm, volume 0.98 mL. Previously: 1.0 x 1.4 x 1.2 cm, volume 0.9 mL. Nodule characteristics: Composition: Solid (2). Echogenicity: Hyperechoic (1). Shape: Not taller than wide (0). Margins: Smooth (0). Echogenic Foci: None (0). ACR TI-RADS total points: 3. Previous: 6. ACR TI-RADS category: 3. Previous: 4. Significant change in size (>/= 20% in 2 dimensions and minimal increase of 2 mm or 50% or greater increase in volume): No Change in features: No Change in ACR TI-RADS risk category: No 3. Location: Right upper. Size: 0.8 x 0.6 x 0.6 cm, volume 0.14 mL. Previously: New since previous. Nodule characteristics: Composition: Solid (2). Echogenicity: Hyperechoic (1). Shape: Not taller than wide (0). Margins: Smooth (0). Echogenic Foci: None (0). ACR TI-RADS total points: 3. ACR TI-RADS category: 3. 4. Location: Right mid pole/lower pole. Per mobile device engineer, nodules 4 and 6 are referred to as 2 discrete nodules on the current exam, but were referred to as a single complex nodule on the prior exam, limiting comparison. Size: 2.0 x 1.2 x 1.7 cm, volume 2.03 mL. Previously: 2.4 x 1.4 x 1.7 cm, volume 3.0 mL. Nodule characteristics: Composition: Solid (2). Echogenicity: Hyperechoic (1). Shape: Not taller than wide (0). Margins: Smooth (0). Echogenic Foci: None (0). ACR TI-RADS total points: 3. Previous: 3. ACR TI-RADS category: 3. Previous: 3. Significant change in size (>/= 20% in 2 dimensions and minimal increase of 2 mm or 50% or greater increase in volume): No Change in features: No Change in ACR TI-RADS risk category: No 5. Location: Right lower pole. Size: 0.9 x 1.4 x 1.0 cm, volume 0.70 mL. Previously: New since previous. Nodule characteristics: Composition: Solid/almost completely solid (2). Echogenicity: Cannot be determined (1). Shape: Taller than wide (3). Margins: Smooth (0). Echogenic Foci: None (0). ACR TI-RADS total points: 6. ACR TI-RADS category: 4. 6. Location: Right lower pole. Per mobile device engineer, nodules 4 and 6 are referred to as 2 discrete nodules on the current exam, but were referred to as a single complex nodule on the prior exam, limiting comparison. Size: 1.1 x 0.7 x 1.1 cm, volume 0.70 mL. Previously: Not documented as a separate nodule above. Nodule characteristics: Composition: Solid/almost completely solid (2). Echogenicity: Cannot be determined (1). Shape: Taller than wide (3). Margins: Smooth (0). Echogenic Foci: None (0). ACR TI-RADS total points: 6. ACR TI-RADS category: 4. NODES: No lymphadenopathy is seen in the tissue surrounding the thyroid gland. US/US thyroid IMPRESSION: Multinodular thyroid gland as detailed above. Per mobile device engineer, nodules 4 and 6 are referred to as 2 discrete nodules on the current exam, but were referred to as a single complex nodule on the prior exam, limiting comparison. Dominant 3.3 cm left midpole TR3 thyroid nodule is stable in size. ACR TI-RADS RECOMMENDATION REFERENCE: Ultrasound-guided fine-needle aspiration, follow up ultrasound, no further followup. * TR1 (0 point) and TR2 (2 points): No FNA or followup. * TR3 (3 points): FNA if more than or equal to 2.5 cm in maximum dimension, follow up ultrasound in 1, 3 and 5 years if 1.5 to 2.4 cm in maximum dimension. * TR4 (4-6 points): FNA if more than or equal to 1.5 cm in maximum dimension, follow up ultrasound in 1, 2, 3 and 5 years if 1 to 1.4 cm in maximum dimension. * TR5 (more than or equal to 7 points): FNA if more than or equal to 1 cm in maximum dimension, follow up ultrasound every year for 5 years if 0.5 to 0.9 cm in maximum dimension. * TR3, TR4 or TR5 nodules that are below the size threshold for follow up receive no followup.
== END 2023-08-01 12:44 | disposition home or self-care (01) ==
LOC: HO.HMGCX 12:43
PROVIDERS: PCP Nurse Practitioner Family; Visit Provider Nurse Practitioner Family
DX: E04.2 Nontoxic multinodular goiter (principal)
CPT/HCPCS: 76536

== ENCOUNTER → 2023-08-29 11:14 | Outpatient (REF) | payer OTHER, SELFPAY ==
--- NOTE | 2023-08-29 11:16 | CA_ITS ---
Transthoracic Echocardiogram Patient (Last, First, Middle): Vanesa Contreras, Gender: Female Date of : 1935 Age: 88 Procedure Date: 08/29/2023 Procedure Type: Transthoracic Echocardiogram Location: OP Height: 149.86 cm Weight: 58.97 kg BSA: 1.54 m2 Heart Rate: 51 bpm BP: 170 / 85 mmHg Financial Planning Assistant: CLARISA Referring MD: Inderjit Riley [facility] Symptoms: I35.0 - Nonrheumatic aortic (valve) stenosis Study Quality: Fair ECG Rhythm: Bradycardia Conclusions: - The left ventricular systolic function is hyperdynamic. The visually estimated ejection fraction is >70%. - Aortic valve calcification but no significant stenosis. Findings Left Ventricle Normal left ventricular cavity size. There is mildly increased left ventricular wall thickness. The left ventricular systolic function is hyperdynamic. The visually estimated ejection fraction is >70%. There is no evidence of regional wall motion abnormalities. Evidence suggests grade I (mild) diastolic dysfunction. LV peak GLS -15.9%. possibly under-estimate. Right Ventricle Normal right ventricular cavity size and systolic function. Atria The left atrium is mildly dilated. The right atrium is normal in size. Aortic Valve There is a normal trileaflet aortic valve. There is mild calcification of the aortic valve. There is trace (trivial) aortic valve regurgitation. No significant aortic stenosis. Mitral Valve There is mild mitral annular calcification. There is trace mitral valve regurgitation. There is no mitral valve stenosis. Pulmonic Valve The pulmonic valve is likely normal. Tricuspid Valve There is trace tricuspid valve regurgitation. There is no evidence of pulmonary hypertension. Great Vessels The asc aorta is normal in size. Moderate plaque is seen in the sino tubular ridge. Venous The inferior vena cava is normal in size and collapses greater than 50% with inspiration. Pericardium/Pleural There is a trivial pericardial effusion. Prior Study Comparison No significant change compared to prior study dated: 10/28/2020. Measurements 2D Linear Measurements IVSd: 1.17 0.6-0.9/0.6-1.0 cm LVIDd: 3.08 3.9-5.3/4.2-5.9 cm LVIDd Index: 2.00 2.4-3.2/2.2-3.1 cm/m2 LVIDs: 2.00 2.0-3.6 cm LVPWd: 1.42 0.7-1.1 cm LA Diam: 3.60 2.7-3.8/3.0-4.0 cm LAIDs Index: 2.34 1.5-2.3 cm/m2 LV Mass: 159.19 67-162/88-224 g LV Mass Index: 103.37 43-95/49-115 g/m2 LVOT Diam: 1.70 3.0+(-)1.3 cm 2D Systolic Function EF 4C: 76.20 >55% EF 2C: 71.10 >55% EF BiP: 72.60 >55% Mitral Valve MV Pk E: 0.51 MV PK A: 0.72 MV Decel Time: 310.00 E/A: 0.70 E'Lateral: 4.87 E'Medial: 3.89 E/E' Med: 13.20 E/E' Lat: 10.60 PHT: 91.00 MVA PHT: 2.42 Decel [place]: 1.66 Aortic Valve AoV Pk Sy: 1.80 AoV Mn Sy: 1.27 AoV VTI: 0.44 AoV Pk Grad: 13.00 Aov Mn Grad: 7.00 JOSE MIGUEL Cont.VTI: 1.62 LVOT LVOT Pk Sy: 1.31 LVOT Mn Sy: 0.91 LVOT VTI: 0.31 LVOT Pk Grad: 7.00 LVOT Mn Grad: 4.00 LVOT Diam: 1.70 LVOT Area: 2.27 Diastolic Function MV Pk E: 0.51 MV Pk A: 0.72 E/A: 0.70 E'Medial: 3.89 E/E' Med: 13.20 E' Laterial: 4.87 E/E' Lat: 10.60 Right Ventricle TAPSE (mm): 23.00 TVS' Sy: 9.57 Tricuspid Valve TR Pk Sy: 2.20 TR Pk Grad: 19.00 RA Press: 3.00 RVSP: 22.00 Great Vessels Aorta Sinus of Valsalva: 2.90 2.0-3.5 cm Ao Asc: 3.30 2.1-3.4 cm Pulmonary Valve PV Pk Sy: 0.81 Peak PV Grad: 3.00 Updated in Other Vendor System with Status of Final Janes May MD electronically signed on 08/29/2023 4:04:50 PM with status of Final
== END ==
LOC: HO.CARD 11:14
PROVIDERS: PCP Nurse Practitioner Family; Visit Provider Nurse Practitioner Family
DX: I35.0 Nonrheumatic aortic (valve) stenosis (principal)
CPT/HCPCS: 93306; 93356

== ENCOUNTER → 2023-08-29 11:16 | Outpatient (BNV) | payer OTHER, SELFPAY | PROVIDERS: PCP Nurse Practitioner Family; Visit Provider Internal Medicine | DX: I35.8 Other nonrheumatic aortic valve disorders (principal); I34.81 Nonrheumatic mitral (valve) annulus calcification; R93.1 Abnormal findings on diagnostic imaging of heart and coronary circulation | CPT/HCPCS: 93306; 93356 ==

== ENCOUNTER 2023-08-31 11:42 | Emergency (ER) | payer OTHER, SELFPAY ==
--- NOTE | ~2023-08-31 | XR_ITS ---
EXAMINATION: XR CHEST CLINICAL INFORMATION: Pain. COMPARISON: Chest radiograph 06/25/2009. TECHNIQUE: Frontal view of the chest was obtained. FINDINGS: Enlarged cardiomediastinal silhouette. Central peribronchial thickening and diffuse interstitial prominence. No focal consolidation. No pleural effusion or pneumothorax. No acute osseous findings. Visualized upper abdomen is within normal limits. XR/XR chest 1V IMPRESSION: 1. Central peribronchial thickening and interstitial prominence which could be seen in the setting of small airways disease or interstitial lung abnormality. This is new compared to 2010. Recommend follow-up with chest radiograph or CT chest in 3 months. 2. No consolidation or pleural effusion. 3. Prominent cardiomediastinal silhouette, increased since 2010. This could be seen with cardiomegaly. Further evaluation with bedside echocardiogram as clinically warranted.
[2023-08-31 11:51] VITALS: BP 178/93; PULSE 65; RESP 16; TEMP 36.6; O2SAT 98; BMI 26.8
--- NOTE | 2023-08-31 11:51 | ECG_ITS ---
Test Reason : chest pain Blood Pressure : / mmHG Vent. Rate : 061 BPM Atrial Rate : 061 BPM P-R Int : 150 ms QRS Dur : 076 ms QT Int : 434 ms P-R-T Axes : -12 018 099 degrees QTc Int : 436 ms Normal sinus rhythm T wave abnormality, consider lateral ischemia Abnormal ECG No previous ECGs available Referred By: Dougie Schrader Electronically Signed By:Viet Lee
--- NOTE | 2023-08-31 11:51 | ED.GENADULT ---
HPI - General Adult General Chief complaint: Chest Pain Stated complaint: bp high Time Seen by Provider: 08/31/23 12:12 Source: patient Mode of arrival: ambulatory Limitations: no limitations History of Present Illness ED Provider: COURT HPI narrative: 88 yo female with PMH of HTN, aortic valve stenosis, DM, osteoporosis, hyperparathyroidism who presents with c/o not taking her BP medications or any meds for 3 months due to insurance and pharmacy change she came today as her BP was high and her tongue felt like it was vibrating and she had some chest pressure this started when she woke up this AM around 7/8am. She is laughing and feels fine now. She tried to call the PCP but states the bilingual secretary was not helpful. MD complaint: HTN, chest pressure Onset (ago): day(s) (this AM) Location: mouth and chest Radiation: non-radiation Severity: mild Quality: other (pressure) Pain Consistency: now resolved Relieving factors: none Exacerbating factors: none Associated symptoms: denies other symptoms Treatments prior to arrival: none Related Data Home Medications ?Medication ?Instructions ?Recorded ?Confirmed Lactobacillus combo no.23 14 cell PO 10/09/20 01/07/22 billion cell capsule (Torres Probiotic) milk thistle olva-keazozydq-engdie cap PO 10/09/20 01/07/22 seed-licorice 120 mg-280 mg capsule vitamin A palmitate 3,000 mcg 10,000 unit PO DAILY 10/09/20 01/07/22 (10,000 unit) tablet vitamin E mixed 400 unit tablet unit PO 10/09/20 01/07/22 Previous Rx's ?Medication ?Instructions ?Recorded alcohol swabs (Alcohol Prep Pads) 1 pad topical DAILY #100 ea 04/03/20 ascorbate calcium (vitamin C) 500 500 mg PO DAILY #90 tabs 04/03/20 mg tablet cholecalciferol (vitamin D3) 50 50 mcg PO DAILY #90 caps 04/03/20 mcg (2,000 unit) capsule lancets 30 gauge (BD Ultra-Fine II #100 ea 04/03/20 Lancets) mecobalamin (vitamin B12) 1,000 1,000 mcg PO DAILY #90 tabs 04/03/20 mcg chewable tablet multivitamin 1 tab PO DAILY #90 tabs 04/03/20 lancets (OneTouch UltraSoft #100 ea 04/15/20 Lancets) blood sugar diagnostic #100 ea 11/06/20 melatonin 3 mg capsule 3 mg PO BEDTIME PRN sleep #90 caps 03/03/21 magnesium oxide 400 mg PO DAILY #90 tabs 10/16/21 chlorthalidone 25 mg tablet 50 mg (2 x 25 mg) PO QAM #90 tabs 01/20/22 blood sugar diagnostic (OneTouch #100 ea 04/19/22 Ultra Test strips) blood-glucose meter (OneTouch #1 ea 10/07/22 Ultra2 Meter) atorvastatin 40 mg tablet 40 mg PO BEDTIME #90 tabs 11/17/22 losartan 100 mg tablet 100 mg PO DAILY #90 tabs 02/11/23 cetirizine 10 mg tablet 10 mg PO DAILY PRN allergy 05/12/23 symptoms #90 tabs empagliflozin 25 mg tablet 25 mg PO DAILY #90 tabs 07/28/23 losartan 50 mg tablet 50 mg PO DAILY #30 tabs 08/31/23 Allergies Allergy/AdvReac Type Severity Reaction Status Date / Time nickel [NICKEL] Allergy Unknown RASH Verified 08/31/23 11:53 HAIR DYE Allergy Unknown SWELLING Uncoded 07/28/23 09:04 latex Allergy Unknown itch Uncoded 07/28/23 09:04 leather products Allergy Unknown Unknown Uncoded 07/28/23 09:04 METAL Allergy Unknown RASH,ITCHIN Uncoded 07/28/23 09:04 G Review of Systems Review of Systems: Constitutional : No Weight loss, No Fever, No Chills ENT/Mouth : No sore throat, No Rhinorrhea Eyes: No Eye Pain, No Swelling Cardiovascular : pos Chest Pain, no SOB, no Dyspnea on Exertion, No Orthopnea, No Edema, No Palpitations Respiratory : No Cough, No Sputum Gastrointestinal : no Nausea, No Vomiting, No Diarrhea, No abdominal Pain, No Hematochezia, No Melena Genitourinary : No Dysuria, No Urinary Frequency Musculoskeletal : No joint pain, No Myalgias, No Joint Swelling Skin : No Skin Lesions, No rash Neuro : No Weakness, No Numbness, No Dizziness, No Headache Psych : No Anxiety/Panic, No Depression Heme/Lymph: No Bruising, No Lymphadenopathy Endocrine : No Polyuria, No Polydipsia All other systems reviewed and are negative PMFSH Past Medical History Attestation statement: The following information was validated with the patient. Source: old records reviewed Medical History Vitamin D deficiency Nontoxic multinodular goiter HTN (hypertension) Aortic valve stenosis Nodular goiter Hyperparathyroidism Osteoporosis Diabetes Surgical History History of esophagogastroduodenoscopy (EGD) Family History Family History Mother HTN (hypertension) Father No problems noted. Son Mental health disorder Social History Social History Housing: Condominium Alcohol intake: former Patient Tobacco Use Status: Never used Tobacco Smoked in Last 30 Days: No Use of substances other than those prescribed or required for medical reasons: No Advance Directives: No Do you have a plan to hurt others: No Plan service: No Current occupational status: retired Cognitive needs: No Hearing needs: No Vision needs: Yes Physical Exam ED Vital Signs: Vital Signs - 24 hr 08/31/23 11:51 08/31/23 12:00 08/31/23 14:00 Temperature 97.9 F 97.8 F 98.2 F Pulse Rate 65 63 51 Respiratory Rate 16 13 14 Blood Pressure 178/93 H 172/82 H 160/75 H Pulse Oximetry 98 96 98 Oxygen Delivery Method Room Air Room Air Room Air BMI result Body Mass Index 26.8 Appearance: Alert. Oriented X3. No acute distress. Eyes: Pupils equal, round and reactive to light. ENT: Pharynx normal. Neck: Normal inspection. Neck supple. CVS: Normal heart rate and rhythm. Pulses normal. Respiratory: No respiratory distress. Breath sounds normal. Abdomen: Soft and nontender. Skin: Skin warm and dry. Normal skin color. Normal skin turgor. Extremities: No lower extremity edema. No calf ttp Neuro: Oriented X 3. No motor deficit. No sensory deficit. Course Course Course Narrative: This is an RME done by AZAR Schrader: Additional HPI, ROS, PE not included below will be deferred to primary provider. 88 year old female hx osteoporosis, DM, HTN presents w/ substernal/ pressure in the xyphoid region and high blood pressure x 1 day. Today checked her pressure at home and it was high. Also having vibrating in my tongue . Ran out of BP meds and hasnt been taking them due to insurance issues she adds. Appearance: Alert.? Oriented X3.? No acute cardiopulmonary distress distress.? Head: Normocephalic, atraumatic, no step-offs or deformities Neck: Normal inspection.? Neck supple.? CVS: Pulses normal.? Respiratory: No respiratory distress.? Abdomen: Soft and nontender.? Skin: ? Normal skin color. Extremities: 5/5 strength to bilateral upper and lower extremities Neuro: Oriented X 3.? No motor deficit.? No sensory deficit. Medications Administered Discontinued Medications Generic Name Dose Route Start Last Admin Trade Name Freq PRN Reason Stop Dose Admin Losartan Potassium 50 mg 08/31/23 12:36 08/31/23 12:41 Losartan Potassium 50 Mg Tablet PO 08/31/23 12:37 50 mg ONCE ONE Administration Protocol Medical Decision Making Medical Decision Making [facility] Narrative: 88 yo female with PMH of HTN, aortic valve stenosis, DM, osteoporosis, hyperparathyroidism who presents with c/o chest pain that is vague and resolved as well as her tongue vibrating in setting of high BP - she notes she is not taking medications but I see jardiance was Rx 08/04 at this time trop x 2, she has no neuro deficits on exam - PO losartan ordered. If negative workup will start on losartan. Differential Diagnosis Differential Diagnoses: The differential diagnosis associated with the presentation includes atypcal chest pain, HTN, non compliance Admission/Observation Consideration of admission/observation: Escalation of care including admission/observation considered repeat trop flat, BP coming down at this time stable for DC Lab Data [facility] Lab Attestation statement: I reviewed the patient's lab results. 08/31/23 12:12 08/31/23 12:12 Labs: Lab Results 08/31/23 08/31/23 Range/Units 12:12 13:57 WBC 7.6 (4.8-10.8) X10*3/uL RBC 4.94 (4.20-5.50) X10*6/uL Hgb 15.2 (12.0-16.0) g/dl Hct 43.0 (37.0-47.0) % MCV 87.0 (80.0-98.0) fL MCH 30.8 (27.0-33.0) pg MCHC 35.3 H (31.0-35.0) g/dl RDW 12.6 (11.0-16.0) % Plt Count 207 (160-400) X10*3/uL MPV 10.1 (9.4-12.3) fL Immature Gran % (Auto) 0.4 (0.0-0.4) % Neut % (Auto) 55.8 (45-73) % Lymph % (Auto) 34.7 (20-40) % [place] % (Auto) 7.0 (2-11) % Eos % (Auto) 1.6 (0-4) % Baso % (Auto) 0.5 (0-2) % Lymph # (Auto) 2.6 (1.2-4.9) X10*3/uL [place] # (Auto) 0.5 (0.1-1.2) X10*3/uL Eos # (Auto) 0.1 (0.0-0.4) X10*3/uL Baso # (Auto) 0.0 (0.0-0.2) X10*3/uL Abs Immat Gran (auto) 0.03 (0.00-0.03) X10*3/uL Absolute Neuts (auto) 4.3 (2.0-8.3) x10*3/uL Absolute Nucleated RBC 0.000 (0.0-0.012) X10*3/uL Nucleated RBC % (auto) 0.0 (0.0-0.2) /100WBC PT 10.1 L (11.1-13.3) SEC INR 0.8 L (0.9-1.1) Sodium 136 (135-145) mmol/L Potassium 4.1 (3.3-5.1) mmol/L Chloride 104 (96-108) mmol/L Carbon Dioxide 26 (22-29) mmol/L Anion Gap 10 L (12-20) BUN 15 (9-16) mg/dL Creatinine 0.82 (0.5-1.4) mg/dL Estim Creat Clear Calc 38.1 Estimated GFR > 60 Random Glucose 273 H (60-115) mg/dL Calcium 9.2 (8.4-10.2) mg/dL Magnesium 2.2 (1.6-2.6) mg/dL Total Bilirubin 0.4 (0.0-1.0) mg/dL AST 25 (5-31) U/L ALT 27 (0-31) U/L Alkaline Phosphatase 84 (39-117) U/L Troponin I High Sens < 2.7 < 2.7 (<3.5-17.0) ng/L Total Protein 7.2 (6.5-8.0) g/dL Albumin 4.0 (3.5-5.0) g/dL Independent Interpretation I performed an independent interpretation of an: EKG and Plain X-Ray (no pneumonia) Interpretation: Rate: 61 Rhythm: NSR [place]: normal Normal P waves. Normal BUNNY. Normal QRS complex. ST T wave : no [place], inverted t waves I and aVL qTC: 436 prior studies: prior inverted t waves aVL The study has been interpreted contemporaneously by me. . Radiology Impression Discussion of test interpretation with radiology: I have reviewed the radiologist's reading. External Record Review External record reviewed: Outpatient record Prescription Management I considered prescription management with: Other Discharge Plan Discharge Clinical Impression: Atypical chest pain HTN (hypertension) Qualifiers: Hypertension type: unspecified Qualified Code(s): I10 - Essential (primary) hypertension Patient Disposition: Home, Self-Care Instructions: Chest Pain (ED), Chronic Hypertension (ED) Additional Instructions: call your doctor for appointment tomorrow return for any worsening symptoms or concerns you have jardiance for your diabetes already in the pharmacy Prescriptions: New losartan 50 mg tablet 50 mg PO DAILY Qty: 30 1RF No Action (DME) lancets [OneTouch UltraSoft Lancets] [facility] [place] .ROUTE .MEDSUPPLY Qty: 100 0RF Rx Instructions: use to check sugar once a day or if needed for sign and symptoms of hypo/hyperglycemia (DME) OneTouch Ultra Blue Test Strip Strip See Rx Instructions .ROUTE .MEDSUPPLY Qty: 100 2RF Rx Instructions: use to check sugar once a day or if needed for sign and symptoms of hypo/hyperglycemia melatonin 3 mg capsule 3 mg PO BEDTIME PRN (Reason: sleep) Qty: 90 0RF magnesium oxide 400 mg magnesium tablet 400 mg PO DAILY Qty: 90 1RF chlorthalidone 25 mg tablet 50 mg PO QAM Qty: 90 3RF (DME) OneTouch Ultra Test Strip See Rx Instructions .Route Qty: 100 4RF Rx Instructions: test blood sugar qd or for signs or symptoms (DME) blood-glucose meter [OneTouch Ultra2 Meter] [facility] [place] .ROUTE .MEDSUPPLY Qty: 1 0RF Rx Instructions: use to check sugar once a day or if needed for sign and symptoms of hypo/hyperglycemia atorvastatin 40 mg tablet 40 mg PO BEDTIME Qty: 90 2RF losartan 100 mg tablet 100 mg PO DAILY Qty: 90 3RF cetirizine 10 mg tablet 10 mg PO DAILY PRN (Reason: allergy symptoms) Qty: 90 1RF ascorbate calcium (vitamin C) 500 mg tablet 500 mg PO DAILY Qty: 90 1RF cholecalciferol (vitamin D3) 50 mcg (2,000 unit) capsule 50 mcg PO DAILY Qty: 90 1RF mecobalamin (vitamin B12) 1,000 mcg tablet,chewable 1,000 mcg PO DAILY Qty: 90 1RF multivitamin Tablet 1 tab PO DAILY Qty: 90 1RF (DME) lancets [BD Ultra-Fine II Lancets] [facility] See Rx Instructions .ROUTE .MEDSUPPLY Qty: 100 0RF Rx Instructions: Use to check blood sugar once daily or if needed for signs & symptoms of hypo/hyperglycemia alcohol swabs [Alcohol Prep Pads] Pads, Medicated 1 pad topical DAILY Qty: 100 1RF Rx Instructions: Use to check blood sugar once daily or if needed for signs & symptoms of hypo/hyperglycemia Torres Probiotic 14 billion cell capsule PO vitamin E mixed 400 unit tablet PO vitamin A palmitate 10,000 unit tablet 10,000 unit PO DAILY milk utfp-nalzad-odtfe-licoric 120-280 mg capsule PO empagliflozin 25 mg tablet 25 mg PO DAILY Qty: 90 0RF Print Language: Icelandic
[2023-08-31 12:00] VITALS: BP 172/82; PULSE 63; RESP 13; TEMP 36.6; O2SAT 96
[2023-08-31 12:21] LABS: MANUAL DIFF FLAG NO
[2023-08-31 12:23] LABS: Basophils Percent Auto 0.5 % (0-2); Eosinophils Absolute Auto 0.1 X10*3/uL (0.0-0.4); Eosinophils Percent Auto 1.6 % (0-4); Hemoglobin 15.2 g/dl (12.0-16.0); Imm Gran Abs Auto 0.03 X10*3/uL (0.00-0.03); Imm Gran Pct Auto 0.4 % (0.0-0.4); Lymphocytes Absolute Auto 2.6 X10*3/uL (1.2-4.9); Lymphocytes Percent Auto 34.7 % (20-40); Mean Corpuscular HGB Conc 35.3 g/dl (31.0-35.0); Mean Corpuscular Hemoglobin 30.8 pg (27.0-33.0); Mean Platelet Volume 10.1 fL (9.4-12.3); Monocytes Absolute Auto 0.5 X10*3/uL (0.1-1.2); Neutrophils Absolute Auto 4.3 x10*3/uL (2.0-8.3); Neutrophils Percent Auto 55.8 % (45-73); Platelet Count 207 X10*3/uL (160-400); Red Blood Count 4.94 X10*6/uL (4.20-5.50); Red Cell Distribution Width 12.6 % (11.0-16.0); White Blood Count 7.6 X10*3/uL (4.8-10.8)
[2023-08-31 12:33] LABS: INTERNATIONAL NORM RATIO 0.8 (0.9-1.1); Prothrombin Time 10.1 SEC (11.1-13.3)
[2023-08-31 12:38] LABS: Alanine Aminotransferase 27 U/L (0-31); Alkaline Phosphatase 84 U/L (39-117); Anion Gap 10 (12-20); Aspartate Amino Transferase 25 U/L (5-31); Bilirubin Total 0.4 mg/dL (0.0-1.0); Blood Urea Nitrogen 15 mg/dL (9-16); Calcium 9.2 mg/dL (8.4-10.2); Carbon Dioxide 26 mmol/L (22-29); Chloride 104 mmol/L (96-108); Creatinine Clr Calc Pharmacy 38.1; Estimated Glomerular Filt Rate > 60; Glucose Random 273 mg/dL (60-115); Magnesium 2.2 mg/dL (1.6-2.6); Potassium 4.1 mmol/L (3.3-5.1); Sodium 136 mmol/L (135-145); Total Protein 7.2 g/dL (6.5-8.0)
[2023-08-31] MEDS: Losartan Potassium 50 MG TABLET PO (12:41)
--- NOTE | 2023-08-31 12:42 | ECG_ITS ---
Test Reason : CHEST PAINS Blood Pressure : / mmHG Vent. Rate : 056 BPM Atrial Rate : 056 BPM P-R Int : 144 ms QRS Dur : 076 ms QT Int : 450 ms P-R-T Axes : -14 008 105 degrees QTc Int : 434 ms Sinus bradycardia T wave abnormality, consider lateral ischemia Abnormal ECG When compared with ECG of 31-AUG-2023 12:02, No significant change was found Referred By: Dagmar Magdaleno Electronically Signed By:Viet Lee
[2023-08-31 12:47] LABS: Troponin-I High Sensitivity < 2.7 ng/L (<3.5-17.0)
[2023-08-31 14:00] VITALS: BP 160/75; PULSE 51; RESP 14; TEMP 36.8; O2SAT 98
[2023-08-31 14:37] LABS: Troponin-I High Sensitivity < 2.7 ng/L (<3.5-17.0)
[2023-08-31 14:57] VITALS: BP 160/75; PULSE 51; RESP 16; TEMP 36.8; O2SAT 98
== END 2023-08-31 15:04 | disposition home or self-care (01) ==
PROVIDERS: Physician Assistant; Emergency Provider Emergency Medicine; PCP Nurse Practitioner Family
DX: R07.89 Other chest pain (principal); I10 Essential (primary) hypertension; E21.3 Hyperparathyroidism, unspecified; Z79.899 Other long term (current) drug therapy
CPT/HCPCS: 36415; 71045; 80053; 83735; 84484; 85025; 85610; 93005; 99283; 99285

== ENCOUNTER → 2023-08-31 11:51 | Outpatient (BNV) | payer OTHER, SELFPAY | PROVIDERS: Emergency Provider Emergency Medicine; PCP Nurse Practitioner Family; Visit Provider Internal Medicine Cardiovascular Disease | DX: R07.9 Chest pain, unspecified (principal); R00.1 Bradycardia, unspecified; R94.31 Abnormal electrocardiogram [ECG] [EKG] | CPT/HCPCS: 93010 ==

== ENCOUNTER 2023-09-09 07:53 | Outpatient (AMB) | payer OTHER, SELFPAY ==
--- NOTE | 2023-09-09 08:07 | MHC.PC.OV ---
Vital Signs 09/09/23 08:08 Height 4 ft 11 in Weight 133 lb BMI 26.9 BP 114/80 Blood Pressure Location Rt brachial Position Sitting Pulse 57 Pulse Source Pulse Oximeter Pulse Oximetry (%) 97 Oxygen Delivery Method Room Air Intake Visit Reasons: DM follow up Intake Note: pt is here for f/u for DM Allergies nickel [NICKEL] Allergy (Unknown, Verified 09/09/23 08:45) RASH HAIR DYE Allergy (Unknown, Uncoded 09/09/23 08:45) SWELLING latex Allergy (Unknown, Uncoded 09/09/23 08:45) itch leather products Allergy (Unknown, Uncoded 09/09/23 08:45) Unknown METAL Allergy (Unknown, Uncoded 09/09/23 08:45) RASH,ITCHING Medication List - Last Reconciled 09/09/23 by TIM Valente alcohol swabs (Alcohol Prep Pads) 1 pad topical DAILY ascorbate calcium (vitamin C) 500 mg PO DAILY atorvastatin 40 mg PO BEDTIME blood sugar diagnostic use to check sugar once a day or if needed for sign and symptoms of hypo/hyperglycemia blood sugar diagnostic ([employer] Ultra Test strips) test blood sugar qd or for signs or symptoms blood-glucose meter ([employer] Ultra2 Meter) use to check sugar once a day or if needed for sign and symptoms of hypo/hyperglycemia cetirizine 10 mg PO DAILY PRN chlorthalidone 50 mg (2 x 25 mg) PO QAM cholecalciferol (vitamin D3) 50 mcg PO DAILY empagliflozin 25 mg PO DAILY Lactobacillus combo no.23 (Torres Probiotic) cells PO lancets (BD Ultra-Fine II Lancets) Use to check blood sugar once daily or if needed for signs & symptoms of hypo/hyperglycemia lancets ([employer] UltraSoft Lancets) use to check sugar once a day or if needed for sign and symptoms of hypo/hyperglycemia losartan 50 mg PO DAILY losartan 100 mg PO DAILY magnesium oxide 400 mg PO DAILY mecobalamin (vitamin B12) 1,000 mcg PO DAILY melatonin 3 mg PO BEDTIME PRN milk gbnr-hryxlg-gpvyh-licoric 120-280 mg caps PO multivitamin 1 tab PO DAILY vitamin A palmitate 10,000 units PO DAILY vitamin E mixed units PO Tobacco use date assessed: 09/09/23 Dental Screening Dental Screen Date: 07/28/23 HPI HPI Comments History of Present Illness Details Patient is an 88-year-old female who I am meeting for the 1st time who is in today for diabetic follow-up. Patient is due for an eye exam will refer to Ophthalmology. Patient is due for podiatry exam will refer. Patient's A1c in office is 9.3 down from previous value of 11.4. The only medication the patient is taking for diabetes is Jardiance 25 mg p.o. daily. However patient takes this inconsistently, closer to every other day. Patient declines the use of metformin, declines insulin. After several attempts patient continues to decline these medications even after discussion about the benefits of keeping sugar levels in control. Patient is up-to-date with microalbumin. [facility] Medical History Vitamin D deficiency Nontoxic multinodular goiter HTN (hypertension) Aortic valve stenosis Nodular goiter Hyperparathyroidism Osteoporosis Diabetes Surgical History History of esophagogastroduodenoscopy (EGD) Family History Mother HTN (hypertension) Father No problems noted. Son Mental health disorder Social History Housing: Condominium Alcohol intake: former Patient Tobacco Use Status: Never used Tobacco service: No Current occupational status: retired Cognitive needs: No Hearing needs: No Vision needs: Yes Questionnaire Thrive Questionnaire Date Thrive assessed: 07/28/23 ELY-7 AMB Questionnaire ELY-7 Date ELY - 7 assessed: 07/28/23 Source: Developed by Drs. Dyllan Diaz, Claire Segura, Darian Cortez and colleagues, with an educational jan from [employer]. Review of Systems Const All systems reviewed & are unremarkable except as noted in HPI and below Physical exam (Primary Care) Vital Signs: Last Vital Signs Pulse 57 09/09/23 08:08 BP 114/80 09/09/23 08:08 Pulse Ox 97 09/09/23 08:08 Oxygen Delivery Method Room Air 09/09/23 08:08 BMI result Body Mass Index 26.9 Tobacco/Smoking Status: Tobacco use Status Tobacco use date assessed 09/09/23 09/09/23 08:14 Patient Tobacco Use Status Never used Tobacco 09/09/23 08:14 Thrive Assessment: Date of Thrive Assessment Date Thrive assessed 07/28/23 09/09/23 08:14 Const Other: Appearance: Alert.? Oriented X3.? No acute distress.? Head: Normocephalic, atraumatic, no step-offs or deformities Eyes: Pupils equal, round and reactive to light.? CVS: Normal heart rate and rhythm.? Pulses normal.? Respiratory: No respiratory distress.? Breath sounds normal.? Extremities: No lower extremity edema.? Neuro: Oriented X 3.? No motor deficit.? No sensory deficit. CN 2-12 intact Results AMB Hemoglobin A1c AMB Hemoglobin A1c 9.3 % Last Edit by Dangelo Lawrence CMA on 09/09/23 08:28 Results Reviewed Results Reviewed: Laboratory Last Values Hgb A1c (Clinic) 9.3 % (4.0-6.0) H 09/09/23 08:15 Assessment and Plan Assessment & Plan (1) Diabetes mellitus type 2 in nonobese: Comment: Patient encouraged to continue to take Jardiance as prescribed not just every other day or few times per week. Patient has been educated the importance of taking metformin and potentially insulin which she has declined repeatedly. Patient will get referral for Ophthalmology and Podiatry. She has been educated on the importance of a low carb diet. Patient reports eating significant amount of bread. Has been educated to eat more fruits and vegetables. Code(s): E11.9 - Type 2 diabetes mellitus without complications (2) Aortic valve stenosis: Comment: Will get referral to Cardiology. Patient also has a history of abnormal EKG. Code(s): I35.0 - Nonrheumatic aortic (valve) stenosis Qualifiers: Cardiac valve disease etiology: etiology unspecified Qualified Code(s): I35.0 - Nonrheumatic aortic (valve) stenosis Orders: Orders AMB Hemoglobin A1c Today E11.9 - Type 2 diabetes mellitus without complications Referrals Ophthalmology Referral E11.9 - Type 2 diabetes mellitus without complications Podiatry Referral E11.9 - Type 2 diabetes mellitus without complications Cardiology Referral I35.0 - Nonrheumatic aortic (valve) stenosis, R94.31 - Abnormal electrocardiogram [ECG] [EKG] Coding Level of Care Code Est Pt Level 3 (39181) Diagnoses Diabetes mellitus type 2 in nonobese E11.9 Aortic valve stenosis, etiology of cardiac valve disease unspecified I35.0 Cardiac valve disease etiology: etiology unspecified Time Spent (min) 27
[2023-09-09 08:08] VITALS: BP 114/80; PULSE 57; O2SAT 97; BMI 26.9
== END 2023-09-09 08:54 | disposition home or self-care (01) ==
LOC: HO.HMGC 07:53
PROVIDERS: PCP Nurse Practitioner Family; Visit Provider Nurse Practitioner Primary Care
DX: E11.9 Type 2 diabetes mellitus without complications (principal); I35.0 Nonrheumatic aortic (valve) stenosis
CPT/HCPCS: 83036; 99213

== ENCOUNTER 2023-09-13 10:56 | Outpatient (AMB) | payer OTHER, SELFPAY ==
--- NOTE | 2023-09-13 10:58 | A.OFFVIS_ITS ---
Vital Signs 09/13/23 11:01 Height 4 ft 11 in Weight 133 lb BMI 26.9 BP 140/86 H Blood Pressure Location Lt brachial Position Sitting Pulse 65 Pulse Source Pulse Oximeter Intake Visit Reasons: Nontoxic multinodular goiter-lvm Intake Note: Patient present today for Nontoxic multinodular goiter follow up visit. Television Director Required: Yes Television Director Language: Resident Care Director Name: Clinton Information Interpreted: non-clinical & clinical Accompanied by: Self / Same As Patient Allergies nickel [NICKEL] Allergy (Unknown, Verified 09/13/23 11:03) RASH HAIR DYE Allergy (Unknown, Uncoded 09/13/23 11:03) SWELLING latex Allergy (Unknown, Uncoded 09/13/23 11:03) itch leather products Allergy (Unknown, Uncoded 09/13/23 11:03) Unknown METAL Allergy (Unknown, Uncoded 09/13/23 11:03) RASH,ITCHING Medication List - Last Reconciled 09/13/23 by Dyllan Mancini MD alcohol swabs (Alcohol Prep Pads) 1 pad topical DAILY ascorbate calcium (vitamin C) 500 mg PO DAILY atorvastatin 40 mg PO BEDTIME blood sugar diagnostic use to check sugar once a day or if needed for sign and symptoms of hypo/hyperglycemia blood sugar diagnostic ([employer] Ultra Test strips) test blood sugar qd or for signs or symptoms blood-glucose meter ([employer] Ultra2 Meter) use to check sugar once a day or if needed for sign and symptoms of hypo/hyperglycemia cetirizine 10 mg PO DAILY PRN chlorthalidone 50 mg (2 x 25 mg) PO QAM cholecalciferol (vitamin D3) 50 mcg PO DAILY empagliflozin 25 mg PO DAILY Lactobacillus combo no.23 (Torres Probiotic) cells PO lancets (BD Ultra-Fine II Lancets) Use to check blood sugar once daily or if needed for signs & symptoms of hypo/hyperglycemia lancets ([employer] UltraSoft Lancets) use to check sugar once a day or if needed for sign and symptoms of hypo/hyperglycemia losartan 50 mg PO DAILY losartan 100 mg PO DAILY magnesium oxide 400 mg PO DAILY mecobalamin (vitamin B12) 1,000 mcg PO DAILY melatonin 3 mg PO BEDTIME PRN milk ennw-ttsnan-tldgg-licoric 120-280 mg caps PO multivitamin 1 tab PO DAILY vitamin A palmitate 10,000 units PO DAILY vitamin E mixed units PO HPI Comments Details: 88 YO Female with PMHx Prediabetes, HLD is seen in F/U for Osteoporosis, hyperparathyroidism and a multinodular goiter. The patient last saw Dr. Tavarez on 10/29/2021. During that visit, the patient declined treatment for the hyperparathyroidism and osteoporosis was referred back to her primary care provider for management of each . Today she returns for follow-up of multinodular goiter 1) Multinodular Goiter: The patient underwent a thyroid US 11/16/18 to assess for a parathyroid adenoma. She was found to have multiple large thyroid nodules meeting indication for FNA biopsy. On 03/22/2019 she underwent FNA biopsy of the L mid pole 3.4 cm nodule with benign cytology ([place] Category II). She underwent FNA biopsy also of the R mid pole 2.3 cm nodule with cytology revealing Atypia of Undetermined Significance (AUS - [place] Category III). Affirma was benign. She opted for yearly surveillance with thyroid US. She denies any difficulty swallowing or compressive symptoms currently. Thyroid US: 04/02/21 Right Thyroid Lobe: 4.3 x 2.8 x 1.9 cm, volume 12.0 mL. Previously 4.3 x 2.9 x 2.3 cm, volume 14.9 mL. Parenchyma: The gland echotexture is heterogeneous. Thyroid vascularity is increased. Left Thyroid Lobe: 5.1 x 2.7 x 2.5 cm, volume 18.0 mL. Previously 5.8 x 3.1 x 2.6 cm, volume 24.2 mL. Parenchyma: The gland echotexture is heterogeneous. Thyroid vascularity is increased. Isthmus: 0.3 cm in maximum AP dimension. Previously 0.2 cm. Estimated total number of nodules greater than or equal to 1 cm: 3. [employer] nodules are described as follows: 1.? Location: Right mid/inferior. ?? ? Size: 2.4 x 1.4 x 1.7 cm, volume 3.0 mL. ?? ? Previously: 2.3 x 1.3 x 2.0 cm, volume 3.1 mL. ?? ? Nodule characteristics: ?? ? Composition: Solid/almost completely solid (2). ?? ? Echogenicity: Hyperechoic (1). ?? ? Shape: Not taller than wide (0). ?? ? Margins: Ill-defined (0). ?? ? Echogenic Foci: None (0).? ACR TI-RADS total points: 3 ?? ? ACR TI-RADS category: 3 ? Significant change in size (>/= 20% in 2 dimensions and minimal increase of 2 mm or 50% or greater increase in volume): None ?? ? Change in features: None ?? ? Change in ACR TI-RADS risk category: Not applicable. 2.? Location: Left mid. ?? ? Size: 3.6 x 2.4 x 2.5 cm, volume 11.3 mL. ?? ? Previously: 3.5 x 2.6 x 2.4 cm, volume 11.4 mL. ?? ? Nodule characteristics: ?? ? Composition: Solid/almost completely solid (2). ?? ? Echogenicity: Hyperechoic (1). ?? ? Shape: Not taller than wide (0). ?? ? Margins: Smooth (0). ?? ? Echogenic Foci: None (0). ?? ? ACR TI-RADS total points: 3 ?? ? ACR TI-RADS category: 3 ? Significant change in size (>/= 20% in 2 dimensions and minimal increase of 2 mm or 50% or greater increase in volume): None ?? ? Change in features: None ?? ? Change in ACR TI-RADS risk category: Not applicable. 3.? Location: Left isthmus. New. ?? ? Size: 1.0 x 1.4 x 1.2 cm, volume 0.9 mL. ?? ? Previously: New since the previous study. ?? ? Nodule characteristics: ?? ? Composition: Solid (2). ?? ? Echogenicity: Hyperechoic (1). ?? ? Shape: Taller than wide (3). ?? ? Margins: Smooth (0). ?? ? Echogenic Foci: None (0). ? ACR TI-RADS total points: 6 ?? ? ACR TI-RADS category: 4 ?? ? NODES: No lymphadenopathy is seen in the tissue surrounding the thyroid gland. DXA: 10/21/2020 FINDINGS: AP SPINE L1-L4: Current: BMD 0.942 g/cm2, Z-score 0.0, T-score -2.0, osteopenia, 6.4% increase from previous, 7.5% increase from baseline (<5% change is not significant). Prior: BMD 0.885 g/cm2. Baseline: BMD 0.876 g/cm2. LEFT FEMUR, NECK: Current: BMD 0.640 g/cm2, Z-score -0.5, T-score -2.9, osteoporosis. Prior: BMD 0.624 g/cm2. Baseline: BMD 0.701 g/cm2. LEFT FEMUR, TOTAL: Current: BMD 0.682 g/cm2, Z-score -0.3, T-score -2.6, osteoporosis, 0.0% change from previous, 11.8% decrease from baseline (<5% change is not significant). Prior: BMD 0.682 g/cm2. Baseline: BMD 0.773 g/cm2. Labs: Laboratory Tests 03/23/21 11:36 Creatinine 0.83 Estimated GFR > 60 TSH 0.41 PFSH Medical History Vitamin D deficiency Nontoxic multinodular goiter HTN (hypertension) Aortic valve stenosis Nodular goiter Hyperparathyroidism Osteoporosis Diabetes Surgical History History of esophagogastroduodenoscopy (EGD) Family History Mother HTN (hypertension) Father No problems noted. Son Mental health disorder Social History Housing: Condominium Alcohol intake: former Patient Tobacco Use Status: Never used Tobacco service: No Current occupational status: retired Cognitive needs: No Hearing needs: No Vision needs: Yes Physical Exam Vital Signs: Last Vital Signs Pulse 65 09/13/23 11:01 BP 140/86 H 09/13/23 11:01 BMI result Body Mass Index 26.9 Const Other: Thyroid gland is normal size weighs about 15 g. There are no palpable thyroid nodules Assessment & Plan Assessment & Plan (1) Nontoxic multinodular goiter: Code(s): E04.2 - Nontoxic multinodular goiter Category: Medical Plan: This 88-year-old female history of multinodular goiter status post FNA of right midpole and left midpole nodules with benign cytology in the past. Recent thyroid ultrasound did not show any significant change in the size or characteristics of the nodules. She appears to be clinically and biochemically euthyroid Plan is have the patient returned to the care of her primary care provider. Considering the patient's age and reluctant to undergo surgery based on biopsy results and previous benign cytology, would not perform follow-up ultrasounds unless patient becomes symptomatic with obstructive symptoms. Coding Level of Care Code Est Pt Level 3 (18800) Diagnoses Nontoxic multinodular goiter E04.2
[2023-09-13 11:01] VITALS: BP 140/86; PULSE 65; BMI 26.9
== END 2023-09-13 11:16 | disposition home or self-care (01) ==
PROVIDERS: PCP Nurse Practitioner Family; Visit Provider Internal Medicine Endocrinology, Diabetes & Metabolism
DX: E04.2 Nontoxic multinodular goiter (principal)
CPT/HCPCS: 99213

== ENCOUNTER → 2023-09-13 10:56 | Outpatient (BNVA) | payer OTHER, SELFPAY | PROVIDERS: PCP Nurse Practitioner Family; Visit Provider Internal Medicine Endocrinology, Diabetes & Metabolism | DX: E04.2 Nontoxic multinodular goiter (principal) | CPT/HCPCS: 99212 ==

== ENCOUNTER 2023-09-28 07:53 | Outpatient (REF) | payer OTHER, SELFPAY ==
[2023-09-28 10:19] LABS: MANUAL DIFF FLAG NO
[2023-09-28 10:28] LABS: Basophils Percent Auto 0.4 % (0-2); Eosinophils Absolute Auto 0.1 X10*3/uL (0.0-0.4); Eosinophils Percent Auto 1.7 % (0-4); Hematocrit 42.8 % (37.0-47.0); Hemoglobin 14.5 g/dl (12.0-16.0); Imm Gran Abs Auto 0.03 X10*3/uL (0.00-0.03); Imm Gran Pct Auto 0.4 % (0.0-0.4); Lymphocytes Absolute Auto 3.3 X10*3/uL (1.2-4.9); Lymphocytes Percent Auto 44.5 % (20-40); Mean Corpuscular HGB Conc 33.9 g/dl (31.0-35.0); Mean Corpuscular Volume 88.6 fL (80.0-98.0); Monocytes Absolute Auto 0.7 X10*3/uL (0.1-1.2); Neutrophils Absolute Auto 3.3 x10*3/uL (2.0-8.3); Platelet Count 204 X10*3/uL (160-400); Red Blood Count 4.83 X10*6/uL (4.20-5.50); Red Cell Distribution Width 12.7 % (11.0-16.0); White Blood Count 7.4 X10*3/uL (4.8-10.8)
[2023-09-28 10:58] LABS: Alanine Aminotransferase 25 U/L (0-31); Alkaline Phosphatase 94 U/L (39-117); Anion Gap 11 (12-20); Aspartate Amino Transferase 20 U/L (5-31); Bilirubin Total 0.4 mg/dL (0.0-1.0); Blood Urea Nitrogen 17 mg/dL (9-16); Calcium 9.5 mg/dL (8.4-10.2); Carbon Dioxide 28 mmol/L (22-29); Chloride 105 mmol/L (96-108); Cholesterol 255 mg/dL (<200); Estimated Glomerular Filt Rate > 60; Glucose Fasting 172 mg/dL (60-99); HDL Cholesterol 66 mg/dL (>40); LDL Cholesterol Calculated 165 mg/dL (<100); Potassium 4.7 mmol/L (3.3-5.1); Sodium 139 mmol/L (135-145); TSH reflex Free T4 0.85 uIU/mL (0.32-4.0); Total Protein 7.2 g/dL (6.5-8.0); Triglycerides 121 mg/dL (<150); Vitamin D 25-OH Total 76.1 ng/mL (>30)
[2023-09-28 10:59] LABS: Appearance Urine Clear; Color Urine Yellow; Glucose Urine UA >=1000 mg/dL (Negative); Leukocyte Esterase Urine Trace (Negative); Nitrite Urine Negative (Negative); Specific Gravity - Urine 1.025 (1.005-1.025); UMIC TRIGGER UACC YES; Urine Blood Negative (Negative); Urine Ketones Negative (Negative); Urine Protein Negative (Neg-Trace)
[2023-09-28 11:52] LABS: Bacteria Urine None Seen (None Seen); RBC Urine 0-2 /HPF (0-2); Squamous Epithelial Cell Urine 0-2 /HPF (0-2); WBC Urine 0-5 /HPF (0-5)
[2023-09-28 11:53] LABS: Hyaline Casts Urine 0-2 /LPF (0-2)
== END 2023-09-28 07:54 | disposition home or self-care (01) ==
LOC: HO.HMGCLDS 07:53
PROVIDERS: PCP Nurse Practitioner Family; Visit Provider Nurse Practitioner Family
DX: E11.9 Type 2 diabetes mellitus without complications (principal); E55.9 Vitamin D deficiency, unspecified
CPT/HCPCS: 36415; 80053; 80061; 81001; 81003; 82306; 84443; 85025

== ENCOUNTER 2023-11-07 09:51 | Outpatient (AMB) | payer OTHER, SELFPAY ==
[2023-11-07 10:03] VITALS: BP 146/88; PULSE 65; BMI 27.6
--- NOTE | 2023-11-07 10:03 | A.OFFVIS_ITS ---
Vital Signs 11/07/23 10:03 Height 4 ft 11 in Weight 136 lb 10.986 oz BMI 27.6 BP 146/88 H Blood Pressure Location Rt brachial Position Sitting Pulse 65 Pulse Source Pulse Oximeter Intake Visit Reasons: Type 2 diabetes mellitus Support Services Coordinator Required: Yes Support Services Coordinator Language: Communication Clerk Services: Support Services Coordinator Present (Via video call) Support Services Coordinator Name: Sandra #[id number] Accompanied by: Self / Same As Patient Allergies nickel [NICKEL] Allergy (Unknown, Verified 11/07/23 10:17) RASH HAIR DYE Allergy (Unknown, Uncoded 11/07/23 10:17) SWELLING latex Allergy (Unknown, Uncoded 11/07/23 10:17) itch leather products Allergy (Unknown, Uncoded 11/07/23 10:17) Unknown METAL Allergy (Unknown, Uncoded 11/07/23 10:17) RASH,ITCHING HPI Comments Details: 88 YO Female with PMHx type 2 diabetes, HLD, Osteoporosis, hyperparathyroidism and a multinodular goiter. Today she is here because she wants to talk about Type 2 DM Type 2 DM At least since 2014 A1c September 04 9.3 % Reports increased urination , denies increased thirst No nausea or vomiting , no abdominal pain Meds Jardiance 25 mg daily stopped was causing itchiness so she is not on anything currently Per last PCP note August 2023 Patient's A1c in office is 9.3 down from previous value of 11.4. The only medication the patient is taking for diabetes is Jardiance 25 mg p.o. daily. However patient takes this inconsistently, closer to every other day. Patient declines the use of metformin, declines insulin. After several attempts patient continues to decline these medications even after discussion about the benefits of keeping sugar levels in control Per patient she has not been taking the Jardiance because it was causing itching in her armpits. She was also noticing some inflammation around her vaginal area. She describes it as swelling. She denies any yeast infection. SMBGs Doesnt have a meter , does not check blood sugars. Microvascular complications No neuropathy Has microalbuminuria, normal kidney function Last eye visit September 2023, no retinopathy per patient Macrovascular complications No heart attack or stroke BP at home 140s to 169/77 and then sometimes her blood pressure will drop to 120s. She takes losartan 100 mg but then has episodes of dizziness sometimes so takes 50 mg. She prefers this regimen after discussing it with her primary care physician. Prescribed atorvastatin 80 mg daily however not taking it. Says she gets chest discomfort and pain everywhere after taking it. Laboratory Tests 07/03/20 07/03/20 07/03/20 08:46 08:51 08:57 Creatinine Estimated GFR Hgb A1c (Clinic) 7.7 H 7.7 H 7.7 H AST ALT Cholesterol LDL Cholesterol, Calc Urine Creatinine Urine Microalbumin Microalb/Creat Ratio 05/23/23 09/09/23 09/28/23 09:19 08:15 08:09 Creatinine 0.78 Estimated GFR > 60 Hgb A1c (Clinic) 9.3 H AST 20 ALT 25 Cholesterol 255 H LDL Cholesterol, Calc 165 H Urine Creatinine 207.67 Urine Microalbumin 64.0 Microalb/Creat Ratio 30.8 H 2) Multinodular goiter The patient last saw Dr. Mancini in September 2023 He saw her for MNG Prior HPI from Dr. Aguilar visit The patient underwent a thyroid US 11/16/18 to assess for a parathyroid adenoma. She was found to have multiple large thyroid nodules meeting indication for FNA biopsy. On 03/22/2019 she underwent FNA biopsy of the L mid pole 3.4 cm nodule with benign cytology ([place] Category II). She underwent FNA biopsy also of the R mid pole 2.3 cm nodule with cytology revealing Atypia of Undetermined Significa nce (AUS - [place] Category III). Affirma was benign. She opted for yearly surveillance with thyroid US. She denies any difficulty swallowing or compressive symptoms currently. Most recent US from August 04 showed stable size of her dominant 3.3 cm left lobe nodule but she has multiple other nodules. Based on mutual discussion with Dr. Mancini patient endorses that given her age she doesnt want aggressive measures like FNA or surgery and for now just wants to be followed clinically for the thyroid. If she has trouble with compressive symptoms she will let us know. Pt endorse this again today Laboratory Tests 09/28/23 08:09 TSH 0.85 3)Osteoporosis/hyperparathyrodism: not addressed today but per last notes, patient doesnt want treatment for these DXA: 10/21/2020 FINDINGS: AP SPINE L1-L4: Current: BMD 0.942 g/cm2, Z-score 0.0, T-score -2.0, osteopenia, 6.4% increase from previous, 7.5% increase from baseline (<5% change is not significant). Prior: BMD 0.885 g/cm2. Baseline: BMD 0.876 g/cm2. LEFT FEMUR, NECK: Current: BMD 0.640 g/cm2, Z-score -0.5, T-score -2.9, osteoporosis. Prior: BMD 0.624 g/cm2. Baseline: BMD 0.701 g/cm2. LEFT FEMUR, TOTAL: Current: BMD 0.682 g/cm2, Z-score -0.3, T-score -2.6, osteoporosis, 0.0% change from previous, 11.8% decrease from baseline (<5% change is not significant). Prior: BMD 0.682 g/cm2. Baseline: BMD 0.773 g/cm2. Labs: Laboratory Tests 10/02/19 04/02/20 07/03/20 09:25 11:41 09:32 Calcium PTH Intact 108 H 79 H 99 H 09/28/23 08:09 Calcium 9.5 PTH Intact Review of systems Constitutional: no fevers, chills or weight loss HEENT: no changes in vision Cardiac: No chest pain, discomfort or palpitations. Pulmonary: No SOB GI:No abdominal pain, no nausea or vomiting, no anorexia, no blood in stool : no burning micturition, dysuria or increase in urinary frequency Neurologic: No dizziness, no weakness in extremities MSK: no back pain or joint stiffness Physical exam General: sitting comfortably in bed in no acute distress HEENT: normocephalic/atraumatic, moist oral mucosa Neck: Palpable bilateral thyroid nodules. Cardiac: normal heart sounds Pulm: normal breath sounds B/L, no added breath sounds Abd: not distended, no tenderness Extremities: no edema, no signs of myxedema Neuro: AAO x3, Speech: normal, no facial droop, moving all 4 extremities Skin: no rash Foot exam: intact sensation to monofilament, intact pulses, intact vibration PFSH Medical History Vitamin D deficiency Nontoxic multinodular goiter HTN (hypertension) Aortic valve stenosis Nodular goiter Hyperparathyroidism Osteoporosis Diabetes Surgical History History of esophagogastroduodenoscopy (EGD) Family History Mother HTN (hypertension) Father No problems noted. Son Mental health disorder Social History Housing: Condominium Alcohol intake: former Patient Tobacco Use Status: Never used Tobacco service: No Current occupational status: retired Cognitive needs: No Hearing needs: No Vision needs: Yes Physical Exam Vital Signs: Last Vital Signs Pulse 65 11/07/23 10:03 BP 146/88 H 11/07/23 10:03 BMI result Body Mass Index 27.6 Foot/Visual Visual inspection of feet performed: No Foot/Pulses Peripheral pulses performed: No Foot/Sensory Sensory exam performed: No Results Reviewed Results Reviewed: DEXA 2020 ONE DENSITOMETRY CLINICAL INDICATION: Osteoporosis. COMPARISON: Previous BD dated 10/17/2018 and baseline BD dated 10/16/2007. TECHNIQUE: Using a [employer] DXA System (software version: 13.1) manufactured by [employer], dual-energy x-ray absorptiometry was performed of the lumbar spine and left hip. The images are of good technical quality. Summary results are attached. FINDINGS: AP SPINE L1-L4: Current: BMD 0.942 g/cm2, Z-score 0.0, T-score -2.0, osteopenia, 6.4% increase from previous, 7.5% increase from baseline (<5% change is not significant). Prior: BMD 0.885 g/cm2. Baseline: BMD 0.876 g/cm2. LEFT FEMUR, NECK: Current: BMD 0.640 g/cm2, Z-score -0.5, T-score -2.9, osteoporosis. Prior: BMD 0.624 g/cm2. Baseline: BMD 0.701 g/cm2. LEFT FEMUR, TOTAL: Current: BMD 0.682 g/cm2, Z-score -0.3, T-score -2.6, osteoporosis, 0.0% change from previous, 11.8% decrease from baseline (<5% change is not significant). Prior: BMD 0.682 g/cm2. Baseline: BMD 0.773 g/cm2. IDENTIFIED RISK FACTORS: Early menopause, history of fracture (adult), secondary osteoporosis. HISTORY OF FRACTURE: Wrist. MEDICATIONS: Calcium, vitamin D. US THYROID 08/04 CLINICAL INFORMATION: Nontoxic multinodular goiter. COMPARISON: Ultrasound thyroid 04/02/2021 and 03/19/2020. TECHNIQUE: Linear transducer grayscale and color Doppler examination with attention to the region of the thyroid. FINDINGS: SIZE: Measurements of the thyroid lobes and nodules are given in sagittal, anteroposterior and transverse dimensions respectively. Right Thyroid Lobe: 4.6 x 2.7 x 2.2 cm, volume 14.3 mL. Previously 4.3 x 2.8 x 1.9 cm, volume 12.0 mL. Parenchyma: The gland echotexture is heterogeneous. Thyroid vascularity is increased. Left Thyroid Lobe: 5.4 x 2.6 x 2.7 cm, volume 19.9 mL. Previously 5.1 x 2.7 x 2.5 cm, volume 18.0 mL. Parenchyma: The gland echotexture is heterogeneous. Thyroid vascularity is increased. Isthmus: 0.3 cm in maximum AP dimension. Previously 0.3 cm. Estimated total number of nodules greater than or equal to 1 cm: 5. Solar Installer Pv nodules are described as follows: 1. Location: Left midpole. Size: 3.3 x 2.1 x 2.6 cm, volume 9.23 mL. Previously: 3.6 x 2.4 x 2.5 cm, volume 11.3 mL. Nodule characteristics: Composition: Solid/almost completely solid (2). Echogenicity: Isoechoic (1). Shape: Not taller than wide (0). Margins: Smooth (0). Echogenic Foci: None (0). ACR TI-RADS total points: 3. Previous: 3. ACR TI-RADS category: 3. Previous: 3. Significant change in size (>/= 20% in 2 dimensions and minimal increase of 2 mm or 50% or greater increase in volume): No Change in features: No Change in ACR TI-RADS risk category: No 2. Location: Left lower isthmus. Size: 1.5 x 1.1 x 1.2 cm, volume 0.98 mL. Previously: 1.0 x 1.4 x 1.2 cm, volume 0.9 mL. Nodule characteristics: Composition: Solid (2). Echogenicity: Hyperechoic (1). Shape: Not taller than wide (0). Margins: Smooth (0). Echogenic Foci: None (0). ACR TI-RADS total points: 3. Previous: 6. ACR TI-RADS category: 3. Previous: 4. Significant change in size (>/= 20% in 2 dimensions and minimal increase of 2 mm or 50% or greater increase in volume): No Change in features: No Change in ACR TI-RADS risk category: No 3. Location: Right upper. Size: 0.8 x 0.6 x 0.6 cm, volume 0.14 mL. Previously: New since previous. Nodule characteristics: Composition: Solid (2). Echogenicity: Hyperechoic (1). Shape: Not taller than wide (0). Margins: Smooth (0). Echogenic Foci: None (0). ACR TI-RADS total points: 3. ACR TI-RADS category: 3. 4. Location: Right mid pole/lower pole. Per preparation supervisor canning, nodules 4 and 6 are referred to as 2 discrete nodules on the current exam, but were referred to as a single complex nodule on the prior exam, limiting comparison. Size: 2.0 x 1.2 x 1.7 cm, volume 2.03 mL. Previously: 2.4 x 1.4 x 1.7 cm, volume 3.0 mL. Nodule characteristics: Composition: Solid (2). Echogenicity: Hyperechoic (1). Shape: Not taller than wide (0). Margins: Smooth (0). Echogenic Foci: None (0). ACR TI-RADS total points: 3. Previous: 3. ACR TI-RADS category: 3. Previous: 3. Significant change in size (>/= 20% in 2 dimensions and minimal increase of 2 mm or 50% or greater increase in volume): No Change in features: No Change in ACR TI-RADS risk category: No 5. Location: Right lower pole. Size: 0.9 x 1.4 x 1.0 cm, volume 0.70 mL. Previously: New since previous. Nodule characteristics: Composition: Solid/almost completely solid (2). Echogenicity: Cannot be determined (1). Shape: Taller than wide (3). Margins: Smooth (0). Echogenic Foci: None (0). ACR TI-RADS total points: 6. ACR TI-RADS category: 4. 6. Location: Right lower pole. Per preparation supervisor canning, nodules 4 and 6 are referred to as 2 discrete nodules on the current exam, but were referred to as a single complex nodule on the prior exam, limiting comparison. Size: 1.1 x 0.7 x 1.1 cm, volume 0.70 mL. Previously: Not documented as a separate nodule above. Nodule characteristics: Composition: Solid/almost completely solid (2). Echogenicity: Cannot be determined (1). Shape: Taller than wide (3). Margins: Smooth (0). Echogenic Foci: None (0). ACR TI-RADS total points: 6. ACR TI-RADS category: 4. NODES: No lymphadenopathy is seen in the tissue surrounding the thyroid gland. US/US thyroid IMPRESSION: Multinodular thyroid gland as detailed above. Per preparation supervisor canning, nodules 4 and 6 are referred to as 2 discrete nodules on the current exam, but were referred to as a single complex nodule on the prior exam, limiting comparison. Dominant 3.3 cm left midpole TR3 thyroid nodule is stable in size. Assessment & Plan Assessment & Plan (1) Diabetes mellitus type 2 in nonobese: Code(s): E11.9 - Type 2 diabetes mellitus without complications Category: Medical Plan: A. Last HBA1c was 9.3% on 08/2023. has a relatively higher CV risk as compared to the general population based on his diabetic status, hyperlipidemia ?and uncontrolled hypertension. She is currently not taking any medications, her primary care physician has had an in-depth discussion with her regarding importance of adherence to medications. She was counseled regarding taking insulin, metformin in the past however she refused. She was most recently prescribed Jardiance 25 mg daily however she has not been taking it for the past few weeks, due to increased itchiness in the armpits and swelling in her vaginal area. She is willing to give it 1 more try. I counseled her that Jardiance skin caused yeast and UTI infections so proper hygiene is very important. She is going to restart that, if she has a yeast infection, we will consider stopping it. I am also going to start her on Ozempic for 0.25 mg weekly dose for 4 weeks and then titrate up to 0.5 mg weekly dose after that. Counseled her regarding side effects of GI intolerance. She does not have any family history of medullary thyroid cancer, no history of pancreatitis. She does not drink alcohol. We will plan to up titrate the Ozempic in the future. B:?Blood pressure is under suboptimal control, for renal protection in the setting of diabetes. Her blood pressures at home are elevated in the 140s to 160s most days. She is on losartan 100 mg daily. I discussed with her that we should titrate up her blood pressure medicine or add another blood pressure medication to her regimen. However she expressed her concerns that some days she feels dizzy and her blood pressure drops that is why she has another prescription for losartan 50 mg daily. She would prefer to keep it this way as this was decided with her primary care physician and she does not want me to stop her losartan 50 mg daily. C:?LDL is 165 mg/dL, which is above goal. Goal is less than 90. D:?Diet control and healthy lifestyle was discussed in detail. E: Last visit with inspectors and regulatory officers was on 09/2023. No diabetic retinopathy. F: Foot care is good. She has a referral for Podiatry. G: eGFR >60 and microalbumin/Cr ratio 30.8, she is already on losartan alternating between 100 and 50 mg doses. She does not want to change this regimen. Plan: -start Ozempic 0.25 mg weekly and then go up to 0.5 mg weekly after 4 weeks -nursing the teaching today regarding Ozempic pen -restart Jardiance 25 mg daily, counseled about maintaining proper hygiene -start monitoring blood sugars, resent glucometer -follow up in 3 months with labs (2) Dyslipidemia: Code(s): E78.5 - Hyperlipidemia, unspecified Category: Medical Plan: LDL noted to be elevated at 165 mg/dL. Goal is less than 90 mg/dL. She is at increased risk of stroke and cardiovascular, T. Advised patient about this. She is on atorvastatin 80 mg daily that she has barely taking it due to pain and discomfort in the chest area as well as other muscle areas. We will switch her to rosuvastatin 10 mg daily. We will repeat lipid panel in 3 months. Plan: -discontinue atorvastatin -start rosuvastatin 10 mg daily -lipid panel in 3 months before follow-up visit Plan I spent 40 minutes in reviewing the record, seeing the patient and documenting in the medical record. Orders: Orders Lipid Panel 3 Months E11.9 - Type 2 diabetes mellitus without complications, E78.5 - Hyperlipidemia, unspecified Hemoglobin A1c 3 Months E11.9 - Type 2 diabetes mellitus without complications, E78.5 - Hyperlipidemia, unspecified Microalbumin, Random (w Creat) 3 Months E11.9 - Type 2 diabetes mellitus without complications, E78.5 - Hyperlipidemia, unspecified Basic Metabolic Panel 3 Months E11.9 - Type 2 diabetes mellitus without complications, E78.5 - Hyperlipidemia, unspecified Medications: New semaglutide for 4 weeks inject 0.25 mg weekly and then increase to 0.5 mg weekly 0.25 mg (0.368 mL) subcut QWEEK 9 mL 3RF rosuvastatin 10 mg PO DAILY 30 tabs 8RF Changed From blood sugar diagnostic (OneTouch Ultra Test strips) test blood sugar qd or for signs or symptoms 100 ea 4RF brand name only E11.9 - Type 2 diabetes mellitus without complications To blood sugar diagnostic (OneTouch Ultra Test strips) test blood sugar 2 times a day 100 ea 4RF brand name only E11.9 - Type 2 diabetes mellitus without complications From blood-glucose meter (OneTouch Ultra2 Meter) use to check sugar once a day or if needed for sign and symptoms of hypo/hyperglycemia 1 ea 0RF diabetes To blood-glucose meter (OneTouch Ultra2 Meter) use to check sugar twice a day 1 ea 0RF diabetes Discontinued atorvastatin Discontinued Reason: Doctor's Order 80 mg PO BEDTIME 90 tabs 2RF Patient Instructions: Discontinue atorvastatin, start rosuvastatin 10 mg daily start the weekly injection Ozempic 0.25 mg weekly for 4 weeks, 0.5 mg weekly after that We will arrange a nurse visit in our office for you to see how to do it Start taking jardiance again 25 mg daily Maintain good hydration and wipe well when you urinate Follow up in 3 months with me , do blood work and urine test before that start checking blood sugars, fasting and then 2 hrs after lunch and dinner Bring your meter to yournext appointment Suspender atorvastatina, iniciar rosuvastatina 10 mg al d?a iniciar la inyecci?n semanal de Ozempic 0,25 mg por semana socrates 4 semanas, 0,5 mg por semana despu?s de eso Organizaremos cal visita de cal enfermera a nuestra oficina para que arturo c?mo hacerlo. Comience a jairo jardiance nuevamente 25 mg al d?a Mantenga cal buena hidrataci?n y l?mpiese koko al orinar. Magalis un seguimiento conmigo en 3 meses, magalis an?lisis de rahul y an?lisis de orina antes de eso. Comience a controlar el nivel de az?car en la rahul, en ayunas y luego 2 horas despu?s del almuerzo y la mail processing associate. Traiga davis medidor a davis pr?xima earnest Coding Level of Care Code Est Pt Level 4 (19557) Complex EM visit Add On G2211 Diagnoses Diabetes mellitus type 2 in nonobese E11.9 Dyslipidemia E78.5 Time Spent (min) 40 Adult Diabetes Labs Most Recent Diabetes Results: Microalb/Creat Ratio 30.8 ug/mg cr (<30) H 05/23/23 Cholesterol 255 mg/dL (<200) H 09/28/23 HDL Cholesterol 66 mg/dL (>40) 09/28/23 Triglycerides 121 mg/dL (<150) 09/28/23 Creatinine 0.78 mg/dL (0.5-1.4) 09/28/23 Blood Urea Nitrogen 17 mg/dL (9-16) H 09/28/23 Sodium 139 mmol/L (135-145) 09/28/23 Potassium 4.7 mmol/L (3.3-5.1) 09/28/23 Chloride 105 mmol/L (96-108) 09/28/23 Carbon Dioxide 28 mmol/L (22-29) 09/28/23 Calcium 9.5 mg/dL (8.4-10.2) 09/28/23 AST 20 U/L (5-31) 09/28/23 ALT 25 U/L (0-31) 09/28/23 Total Protein 7.2 g/dL (6.5-8.0) 09/28/23 Albumin 4.0 g/dL (3.5-5.0) 09/28/23 Management Diabetes Management: Date of last retinal or dilated eye exam Date of last comprehensive foot exam Visual inspection previously performed No 0 11/07/23 Peripheral pulses previously performed No 0 11/07/23 Sensory foot exam previously performed No 0 11/07/23 Date of last diabetes education Date of last dental visit
== END 2023-11-07 11:25 | disposition home or self-care (01) ==
PROVIDERS: PCP Nurse Practitioner Family; Visit Provider Student in an Organized Health Care Education/Training Program
DX: E11.9 Type 2 diabetes mellitus without complications (principal); E78.5 Hyperlipidemia, unspecified
CPT/HCPCS: 99214; G2211

== ENCOUNTER → 2023-11-07 09:51 | Outpatient (BNVA) | payer OTHER, SELFPAY | PROVIDERS: PCP Nurse Practitioner Family; Visit Provider Student in an Organized Health Care Education/Training Program | DX: E11.9 Type 2 diabetes mellitus without complications (principal); E78.5 Hyperlipidemia, unspecified; E21.3 Hyperparathyroidism, unspecified; E04.2 Nontoxic multinodular goiter; Z71.89 Other specified counseling | CPT/HCPCS: 99212 ==

== ENCOUNTER 2023-11-23 09:30 | Outpatient (AMB) | payer OTHER, SELFPAY ==
[2023-11-23 09:32] VITALS: BP 160/80; PULSE 60; O2SAT 96; BMI 27.3
--- NOTE | 2023-11-23 09:32 | A.OFFPC_ITS ---
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 A1C in office today is 10.0. Microalbumin is up to date. Denies polyuria, polydipsia, and neuropathy. Pt denies any signs and symptoms of hypoglycemia and does know how to correct it. Will increase ozempic from 0.25mg to 0.5mg. Eye exam is scheduled. Pt sees endo. Dyslipidemia: On rosuvastatin 10mg. Will increase to 20mg. Pt's blood pressure is elevated today. Pt reports that she is in the 130s systolically at home. Will start low-dose amlodipine. Pt knows to contact me with any dizziness or low blood pressure. Denies chest pain, shortness of breath, headache, dizziness, and blurred vision. [facility] Medical History Vitamin D deficiency Nontoxic multinodular goiter HTN (hypertension) Aortic valve stenosis Nodular goiter Hyperparathyroidism Osteoporosis Diabetes Surgical History History of esophagogastroduodenoscopy (EGD) Family History Mother HTN (hypertension) Father No problems noted. Son Mental health disorder Social History Housing: Condominium Alcohol intake: former Patient Tobacco Use Status: Never used Tobacco service: No Current occupational status: retired Cognitive needs: No Hearing needs: No Vision needs: Yes Questionnaire Thrive Questionnaire Date Thrive assessed: 07/28/23 ELY-7 AMB Questionnaire ELY-7 Date ELY - 7 assessed: 07/28/23 Source: Developed by Drs. Dyllan Diaz, Claire Segura, Darian Cortez and colleagues, with an educational jan from [employer]. Review of Systems Const Reports as per HPI Physical exam (Primary Care) Vital Signs: Last Vital Signs Pulse 60 11/23/23 09:32 BP 160/80 H 11/23/23 09:32 Pulse Ox 96 11/23/23 09:32 BMI result Body Mass Index 27.3 Tobacco/Smoking Status: Tobacco use Status Tobacco use date assessed 09/09/23 11/23/23 09:33 Patient Tobacco Use Status Never used Tobacco 11/23/23 09:33 Thrive Assessment: Date of Thrive Assessment Date Thrive assessed 07/28/23 11/23/23 09:33 Const General: cooperative Orientation/consciousness: patient oriented x3 Resp Effort & Inspection: normal respiratory effort Auscultation: clear to auscultation bilaterally Cardio Rate: regular rate Rhythm: regular rhythm Heart sounds: S1 normal heart sound present, S2 normal heart sound present and Murmur heart sound present systolic Neuro General: patient oriented x3 Extrem Other: bilat feet: + sensation with use of monofilament, feet intact Psych Appearance: grossly normal Mental Status: mental status grossly normal Speech and movement: Normal speech and movement present Affect: normal affect Attitude: cooperative Thought process: Normal thought process present Thought content: Normal thought content present Insight: Good insight present (Psych) Judgement: Good judgement present (Psych) Results AMB Hemoglobin A1c AMB Hemoglobin A1c 10.0 % Last Edit by Abhishek Hopkins CMA on 11/23/23 10 :05 Results Reviewed Results Reviewed: Laboratory Last Values Hgb A1c (Clinic) 10.0 % (4.0-6.0) H 11/23/23 10:04 Assessment and Plan Assessment & Plan (1) Vitamin D deficiency: Code(s): E55.9 - Vitamin D deficiency, unspecified Plan: Labs ordered (2) Diabetes mellitus type 2 in nonobese: Code(s): E11.9 - Type 2 diabetes mellitus without complications Plan: Increasing ozempic from 0.25mg to 0.5mg (3) Dyslipidemia: Code(s): E78.5 - Hyperlipidemia, unspecified Plan: Increasing rosuvastatin from 10mg to 20mg (4) HTN (hypertension): Code(s): I10 - Essential (primary) hypertension Qualifiers: Hypertension type: unspecified Qualified Code(s): I10 - Essential (primary) hypertension Plan: Adding low-dose amlodipine, pt knows to contact me with any dizziness or low blood pressure Plan The patient agreed to the use of a medical equipment sales for this encounter. Scribed for GELY Andres by [employer] De medical equipment sales, on 11/23/2023 at 09:55 EST. Orders: Orders TSH reflex Free T4 Today E78.5 - Hyperlipidemia, unspecified Vitamin D 25-OH Total Today E55.9 - Vitamin D deficiency, unspecified AMB Hemoglobin A1c Today Z13.9 - Encounter for screening, unspecified Complete Blood Count Auto Diff Today E78.5 - Hyperlipidemia, unspecified Comprehensive [place]. Panel Fast Today E78.5 - Hyperlipidemia, unspecified Lipid Panel Today E78.5 - Hyperlipidemia, unspecified UA CC w/rflx Micro + Cult Today E78.5 - Hyperlipidemia, unspecified Medications: New amlodipine 2.5 mg PO DAILY 90 days 90 tabs 0RF Changed From rosuvastatin 10 mg PO DAILY 30 tabs 8RF To rosuvastatin 20 mg PO DAILY 30 days 30 tabs 8RF From semaglutide for 4 weeks inject 0.25 mg weekly and then increase to 0.5 mg weekly 0.25 mg (0.368 mL) subcut QWEEK 9 mL 3RF To semaglutide for 4 weeks inject 0.25 mg weekly and then increase to 0.5 mg weekly 0.5 mg (0.736 mL) subcut QWEEK 9 mL 3RF Coding Level of Care Code Est Pt Level 3 (84934) Diagnoses Vitamin D deficiency E55.9 Diabetes mellitus type 2 in nonobese E11.9 Dyslipidemia E78.5 HTN (hypertension) I10 Hypertension type: unspecified
[2023-11-23 10:19] VITALS: BP 158/80; BP 160/80
== END 2023-11-23 10:32 | disposition home or self-care (01) ==
PROVIDERS: PCP Nurse Practitioner Family; Visit Provider Nurse Practitioner Family
DX: E55.9 Vitamin D deficiency, unspecified (principal); E11.69 Type 2 diabetes mellitus with other specified complication; E78.5 Hyperlipidemia, unspecified; I10 Essential (primary) hypertension
CPT/HCPCS: 83036; 99213

== ENCOUNTER 2023-12-21 09:22 | Outpatient (AMB) | payer OTHER, SELFPAY ==
--- NOTE | 2023-12-21 09:23 | MHC.OFFVIS ---
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 General Worker Language: Crystal Machining Coordinator Name: [id number] Accompanied by: Self / Same As Patient Allergies nickel [NICKEL] Allergy (Unknown, Verified 11/23/23 09:32) RASH HAIR DYE Allergy (Unknown, Uncoded 11/07/23 10:17) SWELLING latex Allergy (Unknown, Uncoded 11/07/23 10:17) itch leather products Allergy (Unknown, Uncoded 11/07/23 10:17) Unknown METAL Allergy (Unknown, Uncoded 11/07/23 10:17) RASH,ITCHING Medication List - Last Reconciled 12/21/23 by Viet Lee MD alcohol swabs (Alcohol Prep Pads) 1 pad topical DAILY amlodipine 2.5 mg PO DAILY 90 days ascorbate calcium (vitamin C) 500 mg PO DAILY blood sugar diagnostic use to check sugar once a day or if needed for sign and symptoms of hypo/hyperglycemia blood sugar diagnostic ([place], LLCTouch Ultra Test strips) test blood sugar 2 times a day blood-glucose meter (OneTouch Ultra2 Meter) use to check sugar twice a day cetirizine 10 mg PO DAILY PRN cholecalciferol (vitamin D3) 50 mcg PO DAILY lancets (BD Ultra-Fine II Lancets) Use to check blood sugar once daily or if needed for signs & symptoms of hypo/hyperglycemia lancets use to check sugar once a day or if needed for sign and symptoms of hypo/hyperglycemia lancets (OneTouch UltraSoft 2 Lancet) check blood sugar twice a day losartan 100 mg PO DAILY magnesium oxide 400 mg PO DAILY mecobalamin (vitamin B12) 1,000 mcg PO DAILY melatonin 3 mg PO BEDTIME PRN milk loaa-bzxnpg-yjgro-licoric 120-280 mg caps PO multivitamin 1 tab PO DAILY rosuvastatin 20 mg PO DAILY 30 days semaglutide 0.5 mg (0.736 mL) subcut QWEEK vitamin A palmitate 10,000 units PO DAILY vitamin E mixed units PO HPI Comments Details: 88-year-old female here for mild aortic stenosis noticed on echocardiogram. She was found to have a systolic murmur and was sent for echocardiography which showed mild aortic stenosis. Her left ventricular and right ventricular function appears normal. She has no symptoms. She denies in particular shortness of breath, syncope, chest discomfort, orthopnea or PND. She said she is diet controlled for her diabetes and her sugar control has been fine. No concerning symptoms on history. Her blood pressure was mildly elevated previously she was asked to keep a log of her blood pressure at home. Most of her systolic blood pressure readings are between low 100 to 130s. There are 2 readings of 146/88 and 145/85. She continues to be completely asymptomatic. No chest discomfort or shortness of breath. 12/21/2023: She is here for follow-up. No symptoms to report on follow-up. She had repeat echocardiography in 09/01/2023 which showed aortic valve calcification without any stenosis. LV function was hyperdynamic and grade 1 diastolic dysfunction was noted. Normal right ventricular size and function. Blood pressure is elevated. She has a log from home where blood pressure readings are anywhere from 130s to 140s. On 11/23/2023 she was prescribed amlodipine 2.5 mg which is a new drug for her along with losartan 100 mg daily. [facility] Medical History Vitamin D deficiency Nontoxic multinodular goiter HTN (hypertension) Aortic valve stenosis Nodular goiter Hyperparathyroidism Osteoporosis Diabetes Surgical History History of esophagogastroduodenoscopy (EGD) Family History Mother HTN (hypertension) Father No problems noted. Son Mental health disorder Social History Housing: Condominium Alcohol intake: former Patient Tobacco Use Status: Never used Tobacco service: No Current occupational status: retired Cognitive needs: No Hearing needs: No Vision needs: Yes Review of Systems Const Denies chills, Denies fatigue, Denies fever(s), Denies frequent falls, Denies weakness, Denies weight gain and Denies weight loss ENT Denies dizziness Card Denies chest pain, Denies leg edema, Denies lightheadedness, Denies palpitations, Denies dyspnea and Denies dyspnea on exertion Resp Denies cough, Denies dyspnea and Denies dyspnea on exertion GI Denies hematochezia Musc Denies abnormal gait, Denies muscle weakness, Denies numbness, Denies radiating pain into limb and Denies tingling Neuro Denies abnormal gait, Denies dizziness, Denies frequent falls, Denies numbness, Denies tingling and Denies weakness Endo Denies fatigue and Denies palpitations Physical Exam Vital Signs: Last Vital Signs Pulse 63 12/21/23 09:24 BP 150/82 H 12/21/23 09:24 BMI result Body Mass Index 28.0 GENERAL APPEARANCE: in no acute distress, well developed, well nourished. NECK/THYROID: no carotid bruit, no jugular venous distention. SKIN: no suspicious lesions, warm and dry. HEART: Systolic murmur in aortic area with preserved 2nd heart sound, regular rate and rhythm. LUNGS: clear to auscultation bilaterally. ABDOMEN: normal, bowel sounds present, soft, nontender, nondistended. EXTREMITIES: no clubbing, cyanosis, or edema. PERIPHERAL PULSES: equal. NEUROLOGIC: nonfocal, alert and oriented. PSYCH: mood/affect full range. Office Procedures EKG Details: Normal sinus rhythm 63 beats per minute, normal axis, normal ECG, QTC 433 milliseconds. [id number], Complete Assessment & Plan Assessment & Plan (1) HTN (hypertension): Code(s): I10 - Essential (primary) hypertension Category: Medical Qualifiers: Hypertension type: unspecified Qualified Code(s): I10 - Essential (primary) hypertension Plan Pleasant 88 year female who is here for follow-up. She has background history of mild aortic valve stenosis and hypertension. Blood pressure is elevated and she is on amlodipine 2.5 mg along with losartan 100 mg. She has been taking amlodipine since November 22. I have advised her to increase the amlodipine to 2 tablets-5 mg daily. She will continue the losartan. Recent echocardiography has shown aortic valve calcification without any significant aortic valve stenosis. She has a grade 1 systolic murmur. There is no significant aortic valve stenosis present. She will need repeat echocardiography in few years. She will see us once a year. She will follow up with primary care physician for blood pressure monitoring and management. Thank you for allowing me to participate in the care of your patient. Please feel free to contact me if you have any questions. Medications: Changed From amlodipine 2.5 mg PO DAILY 90 days 90 tabs 0RF To amlodipine 5 mg (2 x 2.5 mg) PO DAILY 90 days 180 tabs 0RF Coding Level of Care Code Est Pt Level 3 (41470) Complex EM visit Add On G2211 Diagnoses HTN (hypertension) I10 Hypertension type: unspecified CPT Codes EKG - CPT: 43949-[id number], Complete ([id number])
[2023-12-21 09:24] VITALS: BP 150/82; PULSE 63; BMI 28.0
== END 2023-12-21 10:08 | disposition home or self-care (01) ==
PROVIDERS: PCP Nurse Practitioner Family; Visit Provider Internal Medicine Cardiovascular Disease
DX: I10 Essential (primary) hypertension (principal)
CPT/HCPCS: 93010; 99213; G2211

== ENCOUNTER → 2023-12-21 09:22 | Outpatient (BNVA) | payer OTHER, SELFPAY | PROVIDERS: PCP Nurse Practitioner Family; Visit Provider Internal Medicine Cardiovascular Disease | DX: I10 Essential (primary) hypertension (principal) | CPT/HCPCS: 93005; 99212 ==

== ENCOUNTER 2024-02-20 08:13 | Outpatient (AMB) | payer OTHER, SELFPAY ==
[2024-02-20 08:15] VITALS: BP 172/78; PULSE 61; BMI 27.9
--- NOTE | 2024-02-20 08:15 | MHC.OFFVIS ---
Vital Signs 02/20/24 08:15 Height 4 ft 11 in Weight 138 lb 3.677 oz BMI 27.9 BP 172/78 H Blood Pressure Location Rt brachial Position Sitting Pulse 61 Pulse Source Pulse Oximeter Intake Visit Reasons: Hyperparatyhroidism Intake Note: Patient present today for Hyperparathyroidism follow up visit. Random Glucose: 150 mg/dl HgA1C: 9.4% Protection Chief Industrial Plant Required: Yes Protection [employer] Industrial [employer] Language: Flat Sorter Processor Services: Protection [employer] Industrial Plant Present [employer] Name: Noa Information Interpreted: non-clinical & clinical Accompanied by: Self / Same As Patient Allergies nickel [NICKEL] Allergy (Unknown, Verified 02/20/24 08:20) RASH HAIR DYE Allergy (Unknown, Uncoded 02/20/24 08:20) SWELLING latex Allergy (Unknown, Uncoded 02/20/24 08:20) itch leather products Allergy (Unknown, Uncoded 02/20/24 08:20) Unknown METAL Allergy (Unknown, Uncoded 02/20/24 08:20) RASH,ITCHING Medication List - Last Reconciled 02/20/24 by Gracia Gonzáles MD alcohol swabs (Alcohol Prep Pads) 1 pad topical DAILY amlodipine 5 mg (2 x 2.5 mg) PO DAILY 90 days ascorbate calcium (vitamin C) 500 mg PO DAILY blood sugar diagnostic use to check sugar once a day or if needed for sign and symptoms of hypo/hyperglycemia blood sugar diagnostic (Delporuch Ultra Test strips) test blood sugar 2 times a day blood-glucose meter ([place]uch Ultra2 Meter) use to check sugar twice a day cetirizine 10 mg PO DAILY PRN cholecalciferol (vitamin D3) 50 mcg PO DAILY lancets (BD Ultra-Fine II Lancets) Use to check blood sugar once daily or if needed for signs & symptoms of hypo/hyperglycemia lancets use to check sugar once a day or if needed for sign and symptoms of hypo/hyperglycemia lancets (Delporuch UltraSoft 2 Lancet) check blood sugar twice a day losartan 100 mg PO DAILY magnesium oxide 400 mg PO DAILY mecobalamin (vitamin B12) 1,000 mcg PO DAILY melatonin 3 mg PO BEDTIME PRN milk qxvw-sxfcwb-hmvcn-licoric 120-280 mg caps PO multivitamin 1 tab PO DAILY rosuvastatin 20 mg PO DAILY 30 days semaglutide 0.5 mg (0.736 mL) subcut QWEEK vitamin A palmitate 10,000 units PO DAILY vitamin E mixed units PO HPI Comments Details: 88 YO Female with PMHx type 2 diabetes, HLD, Osteoporosis, hyperparathyroidism and a multinodular goiter. Today she is here for follow up of Type 2 DM Type 2 DM At least since 2014 Per last PCP note August 2023 Patient's A1c in office is 9.3 down from previous value of 11.4. The only medication the patient is taking for diabetes is Jardiance 25 mg p.o. daily. However patient takes this inconsistently, closer to every other day. Patient declines the use of metformin, declines insulin. After several attempts patient continues to decline these medications even after discussion about the benefits of keeping sugar levels in control A1c September 04 9.3 % 10 % 11/23/23 9.4% POC 02/20/24 today POC fasting glucose 151 mg/dl Reports increased urination , denies increased thirst No nausea or vomiting , no abdominal pain Prior Meds Jardiance 25 mg daily stopped in November 04 was causing itchiness sPer patient she has not been taking the Jardiance because it was causing itching in her armpits. She was also noticing some inflammation around her vaginal area. She describes it as swelling. She denies any yeast infection. Current meds Ozempic on Tuesday 0.5 mg weekly We have spoken in October 2023 about her returning Jardiance with better hygiene practices, however she did not give it a try. She is also not willing to try metformin, says dana to force it on me, it will not do me good , however she has not had any adverse effects to it in the past when asked. SMBGs checks sugars fasting and afternoon and bedtime , didnt bring meter but anisha her log morning numbers 150s to 180s 2 hrs after meals 180s to 200s Microvascular complications No neuropathy Has microalbuminuria, normal kidney function Last eye visit September 2023, no retinopathy per patient Macrovascular complications No heart attack or stroke BP at home 140s to 169/77 and then sometimes her blood pressure will drop to 120s. She takes losartan 100 mg Couldnt tolerate atorvastatin due to muscle aches, switch to rosuvastatin 20 mg in October 2023, tolerating that better. I had ordered labs for lipid panel, urine microalbumin to be done at three-month interval prior to this follow up, however she has not obtain labs either. Laboratory Tests 07/03/20 07/03/20 07/03/20 08:46 08:51 08:57 Creatinine Estimated GFR Hgb A1c (Clinic) 7.7 H 7.7 H 7.7 H AST ALT Cholesterol LDL Cholesterol, Calc Urine Creatinine Urine Microalbumin Microalb/Creat Ratio 05/23/23 09/09/23 09/28/23 09:19 08:15 08:09 Creatinine 0.78 Estimated GFR > 60 Hgb A1c (Clinic) 9.3 H AST 20 ALT 25 Cholesterol 255 H LDL Cholesterol, Calc 165 H Urine Creatinine 207.67 Urine Microalbumin 64.0 Microalb/Creat Ratio 30.8 H Laboratory Tests 09/09/23 11/23/23 08:15 10:04 Hgb A1c (Clinic) 9.3 H 10.0 H 2) Multinodular goiter Prior HPI from Dr. Aguilar visit The patient underwent a thyroid US 11/16/18 to assess for a parathyroid adenoma. She was found to have multiple large thyroid nodules meeting indication for FNA biopsy. On 03/22/2019 she underwent FNA biopsy of the L mid pole 3.4 cm nodule with benign cytology ([place] Category II). She underwent FNA biopsy also of the R mid pole 2.3 cm nodule with cytology revealing Atypia of Undetermined Significance (AUS - [place] Category III). Affirma was benign. She opted for yearly surveillance with thyroid US. She denies any difficulty swallowing or compressive symptoms currently. Most recent US from August 04 showed stable size of her dominant 3.3 cm left lobe nodule but she has multiple other nodules. Based on mutual discussion with Dr. Mancini patient endorses that given her age she doesnt want aggressive measures like FNA or surgery and for now just wants to be followed clinically for the thyroid. Interval history Today she is complaining of difficulty swallowing especially with her pills that has been bothering her for the past few months. Laboratory Tests 09/28/23 08:09 TSH 0.85 3)Osteoporosis/hyperparathyrodism: not addressed today but per last notes, patient doesnt want treatment for these DXA: 10/21/2020 FINDINGS: AP SPINE L1-L4: Current: BMD 0.942 g/cm2, Z-score 0.0, T-score -2.0, osteopenia, 6.4% increase from previous, 7.5% increase from baseline (<5% change is not significant). Prior: BMD 0.885 g/cm2. Baseline: BMD 0.876 g/cm2. LEFT FEMUR, NECK: Current: BMD 0.640 g/cm2, Z-score -0.5, T-score -2.9, osteoporosis. Prior: BMD 0.624 g/cm2. Baseline: BMD 0.701 g/cm2. LEFT FEMUR, TOTAL: Current: BMD 0.682 g/cm2, Z-score -0.3, T-score -2.6, osteoporosis, 0.0% change from previous, 11.8% decrease from baseline (<5% change is not significant). Prior: BMD 0.682 g/cm2. Baseline: BMD 0.773 g/cm2. Labs: Laboratory Tests 10/02/19 04/02/20 07/03/20 09:25 11:41 09:32 Calcium PTH Intact 108 H 79 H 99 H 09/28/23 08:09 Calcium 9.5 PTH Intact Review of systems Constitutional: no fevers, chills or weight loss HEENT: no changes in vision Cardiac: No chest pain, discomfort or palpitations. Pulmonary: No SOB GI:No abdominal pain, no nausea or vomiting, no anorexia, no blood in stool : no burning micturition, dysuria or increase in urinary frequency Neurologic: No dizziness, no weakness in extremities MSK: no back pain or joint stiffness Physical exam General: sitting comfortably in bed in no acute distress HEENT: normocephalic/atraumatic, moist oral mucosa Neck: Palpable bilateral thyroid nodules. Cardiac: normal heart sounds Pulm: normal breath sounds B/L, no added breath sounds Abd: not distended, no tenderness Extremities: no edema, no signs of myxedema Neuro: AAO x3, Speech: normal, no facial droop, moving all 4 extremities Skin: no rash Foot exam: done Oct 2023 intact sensation to monofilament, intact pulses, intact vibration [facility] Medical History Vitamin D deficiency Nontoxic multinodular goiter HTN (hypertension) Aortic valve stenosis Nodular goiter Hyperparathyroidism Osteoporosis Diabetes Surgical History History of esophagogastroduodenoscopy (EGD) Family History Mother HTN (hypertension) Father No problems noted. Son Mental health disorder Social History Housing: Condominium Alcohol intake: former Patient Tobacco Use Status: Never used Tobacco service: No Current occupational status: retired Cognitive needs: No Hearing needs: No Vision needs: Yes Physical Exam Vital Signs: Last Vital Signs Pulse 61 02/20/24 08:15 BP 172/78 H 02/20/24 08:15 BMI result Body Mass Index 27.9 Results AMB Hemoglobin A1c AMB Hemoglobin A1c 9.4 % Last Edit by PIPE Lewis on 02/20/24 08:54 Results Reviewed Results Reviewed: Laboratory Last Values Glucose (Clinic) 150 mg/dL (60-115) H 02/20/24 08:28 Assessment & Plan Assessment & Plan (1) Diabetes mellitus type 2 in nonobese: Code(s): E11.9 - Type 2 diabetes mellitus without complications Category: Medical (2) Dyslipidemia: Code(s): E78.5 - Hyperlipidemia, unspecified Category: Medical Plan: LDL noted to be elevated at 165 mg/dL from 10/04. Goal is less than 90 mg/dL. She is at increased risk of stroke and cardiovascular, T. Advised patient about this. Switched from atorvastatin 80 mg daily as it was causing muscle aches, to rosuvastatin 20 mg daily. She endorses taking this. She has not obtain to repeat lipid panel. 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 Last HBA1c was 9.4% 02/20/24 down from 10% in November 2023.. has a relatively higher CV risk as compared to the general population based on his diabetic status, hyperlipidemia ?and uncontrolled hypertension. Also has a history of aortic stenosis.. . She was counseled regarding taking insulin, metformin in the past however she refused. She was most recently prescribed Jardiance 25 mg daily however she has not been taking it since Aui24 even though we had agreed to retry, due to increased itchiness in the armpits and swelling in her vaginal area. She is willing to give it 1 more try. I counseled her that Jardiance skin caused yeast and UTI infections so proper hygiene is very important. She is going to restart that, if she has a yeast infection, we will consider stopping it. I will restart her at the 10 mg dose. She is taking Ozempic 0.5 mg weekly, tolerating it well without any GI side effects. We will up titrate that to 1 mg weekly. B:?Blood pressure is under suboptimal control, for renal protection in the setting of diabetes. Her blood pressures at home are elevated in the 140s to 160s most days. She is on losartan 100 mg daily. Recently also saw Cardiology in the event up on her amlodipine dose as well. C:?LDL is 165 mg/dL 10/04, which is above goal. Goal is less than 90. D:?Diet control and healthy lifestyle was discussed in detail. E: Last visit with supervisor coffee was on 09/2023. No diabetic retinopathy. F: Foot care is good. She has a referral for Podiatry. G: eGFR >60 and microalbumin/Cr ratio 30.8 from 06/04 , she is already on losartan alternating between 100 and 50 mg doses. She does not want to change this regimen. Plan: -increase Ozempic to 1 mg weekly -restart Jardiance 25 mg daily, counseled about maintaining proper hygiene -refuses metformin -continue to monitor blood sugars and bring glucometer to next appointment -educator and metal ceiling hanger referrals placed -follow up in 6 weeks with labs (4) Nontoxic multinodular goiter: Code(s): E04.2 - Nontoxic multinodular goiter Category: Medical Plan: The patient underwent a thyroid US 11/16/18 to assess for a parathyroid adenoma. She was found to have multiple large thyroid nodules meeting indication for FNA biopsy. On 03/22/2019 she underwent FNA biopsy of the L mid pole 3.4 cm nodule with benign cytology ([place] Category II). She underwent FNA biopsy also of the R mid pole 2.3 cm nodule with cytology revealing Atypia of Undetermined Significance (AUS - [place] Category III). Affirma was benign. She opted for yearly surveillance with thyroid US. Most recent US from August 04 showed stable size of her dominant 3.3 cm left lobe nodule but she has multiple other nodules. Based on mutual discussion with Dr. Mancini patient endorses that given her age she didnt want aggressive measures like FNA or surgery and for now just wants to be followed clinically for the thyroid. Today she is complaining mainly of worsening compressive symptoms. We will order repeat thyroid ultrasound. Plan: -ordered repeat thyroid ultrasound, follow up in 6 weeks to discuss results Plan I spent 40 minutes in reviewing the record, seeing the patient and documenting in the medical record. Orders: Orders AMB Hemoglobin A1c Today E11.9 - Type 2 diabetes mellitus without complications, Z13.9 - Encounter for screening, unspecified US thyroid Today E04.2 - Nontoxic multinodular goiter Referrals Diabetes Education Referral E11.9 - Type 2 diabetes mellitus without complications Airport Representative Nutrition Referral E11.9 - Type 2 diabetes mellitus without complications Medications: New semaglutide (Ozempic) 1 mg (0.75 mL) subcut QWEEK 9 mL 3RF empagliflozin 10 mg PO DAILY 30 tabs 6RF Discontinued semaglutide for 4 weeks inject 0.25 mg weekly and then increase to 0.5 mg weekly Discontinued Reason: Patient Completed Course 0.5 mg (0.736 mL) subcut QWEEK 9 mL 3RF Patient Instructions: See rn diabetes educator and metal ceiling hanger Restart jardiance 10 mg daily Increase Ozempic to 1 mg weekly Do thyroid US Keep checking blood sugars Bring your meter and medications to next appointmen t do blood work before next appointment should be fasting Coding Level of Care Code Est Pt Level 5 (03596) Complex EM visit Add On [id number] Diagnoses Diabetes mellitus type 2 in nonobese E11.9 Dyslipidemia E78.5 Type 2 diabetes mellitus with hyperglycemia, without long-term current use of insulin E11.65 Diabetes mellitus type: type 2 Diabetes mellitus fdc insulin use: without fdc use Diabetes mellitus complication status: with hyperglycemia Nontoxic multinodular goiter E04.2 Time Spent (min) 40
[2024-02-20 08:52] LABS: Glucose, Whole Blood 150 mg/dL (60-115)
== END 2024-02-20 08:57 | disposition home or self-care (01) ==
PROVIDERS: PCP Nurse Practitioner Family; Visit Provider Student in an Organized Health Care Education/Training Program
DX: E11.69 Type 2 diabetes mellitus with other specified complication (principal); E78.5 Hyperlipidemia, unspecified; E11.65 Type 2 diabetes mellitus with hyperglycemia; E04.2 Nontoxic multinodular goiter; Z13.9 Encounter for screening, unspecified
CPT/HCPCS: 99215; G2211

== ENCOUNTER → 2024-02-20 08:13 | Outpatient (BNVA) | payer OTHER, SELFPAY | PROVIDERS: PCP Nurse Practitioner Family; Visit Provider Student in an Organized Health Care Education/Training Program | DX: E11.65 Type 2 diabetes mellitus with hyperglycemia (principal); E78.5 Hyperlipidemia, unspecified; E04.2 Nontoxic multinodular goiter | CPT/HCPCS: 82947; 83036; 99212 ==

== ENCOUNTER 2024-03-21 08:03 | Outpatient (AMB) | payer OTHER, SELFPAY ==
--- NOTE | 2024-03-21 08:49 | A.OFFVIS_ITS ---
Intake Intake Visit Reasons: Type 2 diabetes mellitus without complications Seasonal Package Handler Required: Yes Seasonal Package Handler Language: Evp Strategy Name: [id number] Accompanied by: Self / Same As Patient Allergies nickel [NICKEL] Allergy (Unknown, Verified 02/20/24 08:20) RASH HAIR DYE Allergy (Unknown, Uncoded 02/20/24 08:20) SWELLING latex Allergy (Unknown, Uncoded 02/20/24 08:20) itch leather products Allergy (Unknown, Uncoded 02/20/24 08:20) Unknown METAL Allergy (Unknown, Uncoded 02/20/24 08:20) RASH,ITCHING HPI Comprehensive Diabetes Asmnt Most Recent Diabetes Results: Microalb/Creat Ratio 30.8 ug/mg cr (<30) H 05/23/23 Cholesterol 255 mg/dL (<200) H 09/28/23 HDL Cholesterol 66 mg/dL (>40) 09/28/23 Triglycerides 121 mg/dL (<150) 09/28/23 Creatinine 0.78 mg/dL (0.5-1.4) 09/28/23 Blood Urea Nitrogen 17 mg/dL (9-16) H 09/28/23 Sodium 139 mmol/L (135-145) 09/28/23 Potassium 4.7 mmol/L (3.3-5.1) 09/28/23 Chloride 105 mmol/L (96-108) 09/28/23 Carbon Dioxide 28 mmol/L (22-29) 09/28/23 Calcium 9.5 mg/dL (8.4-10.2) 09/28/23 AST 20 U/L (5-31) 09/28/23 ALT 25 U/L (0-31) 09/28/23 Total Protein 7.2 g/dL (6.5-8.0) 09/28/23 Albumin 4.0 g/dL (3.5-5.0) 09/28/23 [facility] Medical History Vitamin D deficiency Nontoxic multinodular goiter HTN (hypertension) Aortic valve stenosis Nodular goiter Hyperparathyroidism Osteoporosis Diabetes Surgical History History of esophagogastroduodenoscopy (EGD) Family History Mother HTN (hypertension) Father No problems noted. Son Mental health disorder Social History Housing: Condominium Alcohol intake: former Patient Tobacco Use Status: Never used Tobacco service: No Current occupational status: retired Cognitive needs: No Hearing needs: No Vision needs: Yes Assessment & Plan Assessment & Plan (1) Diabetes mellitus type 2 in nonobese: Code(s): E11.9 - Type 2 diabetes mellitus without complications Plan: Diabetes self-management education and support participation record Assessment/scale: 1= needs instructed? 2= needs review? 3= comprehen d keep point? 4= demonstrates understanding/ competent? NC= Not Covered Topics Learning Objective: Initial visit Initial or post srvc Initial or post srvc Initial or post srvc Initial or post srvc Initial or post srvc Post srvc Comments Pre Edu-assessment/plan Outcome or reassess Outcome or reassess Outcome or reassess Outcome or reassess Outcome or reassess Outcome or reassess Diabetes pathophysiology Healthy eating Being active Taking medication Monitoring glucose Acute complication Chronic complicated Lifestyle and healthy coping Diabetes distress in support ?Diabetes pathophysiology: ?Defined diabetes med identify own type of diabetes; list 3 options for treating diabetes Healthy eating: ?Described effect of type, amount and ?timing of food on blood glucose; list 3 methods for planning meal Being active: ?State effect of exercise on blood glucose level Taking medication: ?State effect of diabetes medications on diabetes; name diabetes medications taking, action and side effects Monitoring glucose: ?Identify recommended blood glucose targets and personal target Acute complication: ?List symptoms and treatment of hyper and hypoglycemia, DKA, sick day guidelines and guidelines for severe weather or situations of crisis and diabetes supply manage Chronic complication: ?To find the relationship of blood glucose levels to long- term complications of diabetes in screening and preventative measures Lifestyle and healthy coping: ?Described lifestyle and healthy coping strategies to rule out diabetes self-management Diabetes to stress and support: ?Recognize Diabetes to stress and be able to identified support options Learning objectives: The patient was provided with verbal and written education on the following topics as outlined below. The patient met all learning objectives and was able to verbalize understanding and provide teach back of education topics discussed . The patient was provided with the opportunity to ask questions and all questions were answered. Patient Assessment Assess patient education level/literacy/barriers, patient can identify foods from carbohydrate lists that she is currently eating Patient questions/concerns, patient's last A1c on 02/20/2024 9.4%. At visit with provider patient declined to start new diabetes medications including insulin. Patient did agree to restart Jardiance 10 mg Discussed with patient her apprehension about adding new diabetes medication suggested to patient she bring questions and concerns to next provider visit about diabetes medication Patient has follow-up visit with provider on 04/03/[address] on 04/09/24. Suggested to patient she discuss protein alternatives with dietitian, because she stated she does not eat meat or fish What is Diabetes? Pathophysiology How the body produces and uses insulin Identify type of DM Risk factors Signs of Diabetes Brief overview of Diabetes Management Monitoring blood sugar Following a meal plan Regular exercise Maintaining a healthy weight Taking medication as needed Members of the care team (PCP, RN, MA, RD, CDE, network systems integrator) Blood glucose monitoring When/how often to test Target blood sugar ranges Patient uses OneTouch ultra meter Patient is testing glucose 2-3 times daily [place] range 177 to 209 mg/dL Pre lunch 194 to 256 mg/dL 3rd test sporadic throughout the week ranging from 160-326 mg/dL Introduction to Nutrition Importance of healthy diet in managing DM Diet is personalized to individual preference Review patient?s regular diet/food preferences Who prepares meals/does food shopping/ Dining out?/ Barriers? How diet effects glucose Eating 3 balanced meals a day with small, healthy snacks between meals Review food groups Carbohydrates: What is a carbohydrate/Which food/food groups are considered carbohydrates Effect of carbohydrates on blood glucose Portion sizes Reading food labels Basic carb counting (if applicable per nursing assessment) Plate method Meal planning Recommendations: Follow plate method, consistent carbs and read nutritional labels. Smart Goal: Patient will identify foods in current meal plan that contain carbohydrates Educational Materials: The patient was provided with the following written educational materials: Planning Healthy Meals Handout Patient Response to instructions: Comprehension of Instructions: Fair Readiness to make changes: Contemplation How confident they feel about making changes: Positive Portions of this note were created using voice recognition software, please excuse any words or phrases that may have been misinterpreted. Patient Instructions: Incluir actividad diaria regular. ADA recomienda 30 minutos de ejercicio 5 d?as a la semana. P?rdida de peso, hable con el PCP o el cardi?logo antes de comenzar un nuevo plan. Mida el nivel de az?car en la rahul seg?n las indicaciones; Ayuno y comida m?s opal de 2hpp. Observe las tendencias en los resultados. Utilice los resultados y eval?e c?mo los alimentos, la actividad f?ying y los medicamentos afectan los resultados de az?car en la rahul. Lleve el gluc?metro o CGM a la pr?xima visita. Conocer los medicamentos para la diabetes, davis acci?n, los efectos secundarios, la eficacia, la toxicidad, la dosis prescrita, el momento y la frecuencia de administraci?n apropiados, el efecto de las dosis olvidadas y retrasadas y las instrucciones de almacenamiento, viaje y seguridad. T?cnicas de resoluci?n de problemas para el seguimiento de episodios de hipo/hiperglucemia y tratamientos. Reducir los comportamientos de reducci?n de riesgos, dejar de fumar, ex?menes regulares de ojos, pies y dentales. Coding Level of Care Code Est Pt Level 1 (41589) Diagnoses Diabetes mellitus type 2 in nonobese E11.9
== END 2024-03-21 08:52 | disposition home or self-care (01) ==
PROVIDERS: PCP Nurse Practitioner Family; Visit Provider Registered Nurse Diabetes Educator
DX: E11.9 Type 2 diabetes mellitus without complications (principal)

== ENCOUNTER 2024-03-21 08:54 | Outpatient (REF) | payer OTHER, SELFPAY ==
[2024-03-21 10:46] LABS: Anion Gap 11 (12-20); Blood Urea Nitrogen 24 mg/dL (9-16); Calcium 9.8 mg/dL (8.4-10.2); Carbon Dioxide 27 mmol/L (22-29); Chloride 107 mmol/L (96-108); Cholesterol 237 mg/dL (<200); Estimated Glomerular Filt Rate > 60; Glucose Random 170 mg/dL (60-115); HDL Cholesterol 59 mg/dL (>40); LDL Cholesterol Calculated 157 mg/dL (<100); Potassium 4.8 mmol/L (3.3-5.1); Sodium 140 mmol/L (135-145); Triglycerides 105 mg/dL (<150)
[2024-03-21 10:53] LABS: Estimated Average Glucose 192 mg/dL; Hemoglobin A1C 257.5341 umol/L; Hemoglobin A1c % 8.3 % (<6.0); Total Hemoglobin (HGBA1C) 3855.6194 umol/L
[2024-03-21 11:08] LABS: Creatinine Urine 37.92 mg/dL; Microalbum/Creatinine Ratio Ur 36.9 ug/mg cr (<30)
== END 2024-03-21 08:55 | disposition home or self-care (01) ==
LOC: HO.10HDL 08:54
PROVIDERS: Visit Provider Student in an Organized Health Care Education/Training Program
DX: E78.5 Hyperlipidemia, unspecified (principal); E11.9 Type 2 diabetes mellitus without complications
CPT/HCPCS: 36415; 80048; 80061; 82043; 82570; 83036; 99211

== ENCOUNTER 2024-04-09 08:23 | Outpatient (AMB) | payer OTHER, SELFPAY ==
[2024-04-09 08:33] VITALS: BMI 28.0
--- NOTE | 2024-04-09 08:33 | MHC.AMNUTRGE ---
VS Expanded 04/09/24 08:33 Height 4 ft 11 in Weight 138 lb 10.732 oz BMI 28.0 Intake Visit Reasons: Type 2 diabetes mellitus without complications Allergies nickel [NICKEL] Allergy (Unknown, Verified 02/20/24 08:20) RASH HAIR DYE Allergy (Unknown, Uncoded 02/20/24 08:20) SWELLING latex Allergy (Unknown, Uncoded 02/20/24 08:20) itch leather products Allergy (Unknown, Uncoded 02/20/24 08:20) Unknown METAL Allergy (Unknown, Uncoded 02/20/24 08:20) RASH,ITCHING Nutrition Presentation Details: Pt presents for MNT for T2DM Pt reports having a variety of foods Typically has 3 meal/day B: hot cereal/fruits, milk (oat, almond) L:rice/beans, spinach, water or tea or beyond burger with bun ,water or tea dinner: pudding, pasta with peanut sauce Admits to increased snacks , pastries and similar foods Pt follows vegetarian diet Physical activity: daily life activities etoh/smoking- denies BS Monitoring Most Recent Diabetes Results: Microalb/Creat Ratio 36.9 ug/mg cr (<30) H 03/21/24 Cholesterol 237 mg/dL (<200) H 03/21/24 HDL Cholesterol 59 mg/dL (>40) 03/21/24 Triglycerides 105 mg/dL (<150) 03/21/24 Creatinine 0.83 mg/dL (0.5-1.4) 03/21/24 Blood Urea Nitrogen 24 mg/dL (9-16) H 03/21/24 Sodium 140 mmol/L (135-145) 03/21/24 Potassium 4.8 mmol/L (3.3-5.1) 03/21/24 Chloride 107 mmol/L (96-108) 03/21/24 Carbon Dioxide 27 mmol/L (22-29) 03/21/24 Calcium 9.8 mg/dL (8.4-10.2) 03/21/24 TDI-Ksacvzs-Vq.Jeor Equation Height: 4 ft 11 in Weight: 139 lb Resting Metabolic Rate: 977.45 Calculated Activity Level: Mild Activity Calories Needed to Maintain Weight: 1343.99 Diagnosis Nutrition problem #1: excessive energy intake As related to (etiology) #1: diagnosis As evidenced by (sign/symptom) #1: elevated HgbA1c Monitoring/Goals Nutrition problem monitoring: HgbA1c Nutrition goal/outcome: list 3 CHO foods and list 3 high fiber foods [facility] Medical History Vitamin D deficiency Nontoxic multinodular goiter HTN (hypertension) Aortic valve stenosis Nodular goiter Hyperparathyroidism Osteoporosis Diabetes Surgical History History of esophagogastroduodenoscopy (EGD) Family History Mother HTN (hypertension) Father No problems noted. Son Mental health disorder Social History Housing: Condominium Alcohol intake: former Patient Tobacco Use Status: Never used Tobacco service: No Current occupational status: retired Cognitive needs: No Hearing needs: No Vision needs: Yes Assessment & Plan Assessment & Plan (1) Diabetes mellitus type 2 in nonobese: Code(s): E11.9 - Type 2 diabetes mellitus without complications Category: Medical Plan: Wt: 64 Kg ( 04/07 ) Est kcal needs as per MSJ: 1400 (40% carb, 30% protein/fat) Est fluid needs as per 25-30 ml/d: 1900 Est prot per day as per 1 g/kg bw: 64 Recommend fiber intake : 8-10 g per day and gradually increase to 25-28 g per day for women and 35-38 g for men or as tolerated Recommend sodium intake per day : less than 2300 mg Educated patient on: ( R = reviewed V = verbalizes understanding N/R = needs review N/A = not applicable Food sources of carbohydrate, adequate serving sizes and its role in various health conditions: R V N/R Differences between complex carbohydrates a simple carbohydrates, role of fiber in diet: R Lean protein sources of foods: R V NR Differences between types of fats and role in diet (mono on saturated fat fatty acids, saturated fatty acids, trans fats): R V N/R Food sources of sodium in salt and healthy modifications for heart health in kidney health: R V R/V Vitamins and minerals: R V N/R Healthy plate method concept: R V N/R Physical activity: Benefits a precaution: R V N/R Hypoglycemia protocol (rule of 15): R V N/R Dietary prevention of Hyperglycemia: R Patient Instructions: [place] agua con selma comidas o meriendas - Choose water with meals/snacks [place] cal fruta en vezde postres - Choose fruits in place of pastry Coding Level of Care Code Nutr Indiv Intake (16144) Diagnoses Diabetes mellitus type 2 in nonobese E11.9 Time Spent (min) 30
[2024-04-10 09:11] VITALS: BMI 28.1
== END 2024-04-09 09:24 | disposition home or self-care (01) ==
PROVIDERS: PCP Nurse Practitioner Family; Visit Provider Dietitian, Registered
DX: E11.9 Type 2 diabetes mellitus without complications (principal)

== ENCOUNTER → 2024-04-09 08:23 | Outpatient (BNVA) | payer OTHER, SELFPAY | PROVIDERS: PCP Nurse Practitioner Family; Visit Provider Dietitian, Registered | DX: E11.9 Type 2 diabetes mellitus without complications (principal); Z71.3 Dietary counseling and surveillance | CPT/HCPCS: 97802 ==

== ENCOUNTER 2024-05-21 07:59 | Outpatient (AMB) | payer OTHER, SELFPAY ==
[2024-05-21 08:02] VITALS: BP 156/78; PULSE 65; TEMP 36.6; O2SAT 96; BMI 29.1
--- NOTE | 2024-05-21 08:02 | A.OFFPC_ITS ---
Vital Signs 05/21/24 08:02 05/21/24 08:26 Height 4 ft 11 in Weight 144 lb BMI 29.1 BP 156/78 H 170/80 H Blood Pressure Location Lt brachial Lt brachial Position Sitting Sitting Pulse 65 Pulse Source Pulse Oximeter Temp 97.9 F Temp Source Oral Pulse Oximetry (%) 96 Intake Visit Reasons: 6M F/U DM Intake Note: pt is here for dm f/up [employer] Sealer Required: No Accompanied by: Self / Same As Patient Allergies nickel [NICKEL] Allergy (Unknown, Verified 05/21/24 08:15) RASH HAIR DYE Allergy (Unknown, Uncoded 05/21/24 08:15) SWELLING latex Allergy (Unknown, Uncoded 05/21/24 08:15) itch leather products Allergy (Unknown, Uncoded 05/21/24 08:15) Unknown METAL Allergy (Unknown, Uncoded 05/21/24 08:15) RASH,ITCHING Medication List - Last Reconciled 05/21/24 by TIM Williamson- alcohol swabs (Alcohol Prep Pads) 1 pad topical DAILY amlodipine 5 mg (2 x 2.5 mg) PO DAILY 90 days ascorbate calcium (vitamin C) 500 mg PO DAILY blood sugar diagnostic use to check sugar once a day or if needed for sign and symptoms of hypo/hyperglycemia blood sugar diagnostic ([employer] Ultra Test strips) test blood sugar 2 times a day blood-glucose meter (ThoughtLeadrTouch Ultra2 Meter) use to check sugar twice a day cetirizine 10 mg PO DAILY PRN cholecalciferol (vitamin D3) 50 mcg PO DAILY empagliflozin 25 mg PO DAILY lancets (BD Ultra-Fine II Lancets) Use to check blood sugar once daily or if needed for signs & symptoms of hypo/hyperglycemia lancets use to check sugar once a day or if needed for sign and symptoms of hypo/hyperglycemia lancets (ThoughtLeadrTouch UltraSoft 2 Lancet) check blood sugar twice a day losartan 100 mg PO DAILY magnesium oxide 400 mg PO DAILY mecobalamin (vitamin B12) 1,000 mcg PO DAILY melatonin 3 mg PO BEDTIME PRN milk nfsl-bzsflk-stohe-licoric 120-280 mg caps PO multivitamin 1 tab PO DAILY rosuvastatin 20 mg PO DAILY vitamin A palmitate 10,000 units PO DAILY vitamin E mixed units PO Tobacco use date assessed: 05/21/24 Fall risk assessment: No Falls in past year Last assessed Fall Risk: 05/21/24 Dental Screening Dental Screen Date: 05/21/24 Did you have a dental visit in the last 12 months?: Yes Did you have a dental problem in the last 6 months where you did not have access to dental care?: No Was dental information given to patient?: Patient has dentist HPI 6M F/U DM HPI Details Chief Complaint The patient is here for evaluation and management of her diabetes and hypertension. History of Present Illness The patient is an 89-year-old female presenting with diabetes and hypertension. She has been managing Type 2 Diabetes Mellitus under the guidance of an etcher electrolytic with Jardiance therapy, but her recent A1c indicates a need for dosage adjustment. She maintains her eye care with regular examinations, and reports no neuropathy. Her hypertension treatment includes amlodipine, but elevated blood pressure readings persist, necessitating a dosage increase to better control her condition. Osteoporosis is also noted, with planned discussion during her endocrinology follow-up. refused any vaccinations Social History Health Maintenance - The patient reports her eye examinatio ns are up to date. - She plans to ensure her diabetes manag ement follows her etcher electrolytic's recommendations. - Recommendations to increase at-home bl ood pressure monitoring to track effectiveness of the increased amlodipine dosage. Review of Systems - Musculoskeletal: Denies neuropathy. -denies any cp, sob, n/v, fevers, chills Physical Exam General: Cooperative, healthy appearing, comfortable, no acute distress and well developed Orientation: Patient oriented x3 Limitations: No limitations Head: Normal to inspection Ears: Hearing grossly normal bilaterally Nose: Normal external nose present Face and sinus: Normal facial exam Eyes: Appearance normal, both eyes and all related structures Neck: Normal visual inspection and Yes full ROM Respiratory: Lungs are fairly clear to auscultation bilaterally, faint crackles to bases Cardiovascular: Systolic murmur noted. Regular rate and rhythm. Normal S1 and S2 GI: Normal to inspection. Soft to palpation and nontender Skin: No rashes or lesions noted Neuro: Patient oriented x3 Extremities: Feet intact, positive sensation with use of monofilament. Normal to inspection Results Plan For Type 2 Diabetes Mellitus, I have increased Jardiance to 25 mg to address the slightly elevated A1c, pending confirmation with the patient's etcher electrolytic. For blood pressure management, the amlodipine dosage was adjusted to 10 mg due to ongoing readings above target levels, with the patient advised to monitor at home. Observations included a systolic murmur, remaining consistent yet stable, and clear lung examinations without further concern. I recommended continued follow-up regarding her osteoporosis with specialist input during her upcoming endocrinology consultation. Discussion Notes I have reviewed with the patient the necessity of adjusting her medication doses. For diabetes, increasing Jardiance is intended to improve A1c levels, with the benefits of better glucose control discussed. We considered the risks of urinary and genital tract infections, which were minimal given the patient's history. Regarding hypertension, increasing amlodipine is essential due to inadequate control at the current dosage. We discussed the benefits and possible side effects, including edema, which I will monitor on follow-up. The patient consents to home monitoring of blood pressure to assess treatment effectiveness. We emphasized the importance of follow-up appointments and maintaining her proactive approach to eye care. She understands the need to keep her osteoporosis management aligned with her etcher electrolytic's guidance. Patient Instructions - Increase Jardiance from 10 mg to 25 mg as directed for diabetes management. - Begin taking amlodipine 10 mg daily fo r high blood pressure. - Monitor blood pressure daily at home a nd record results. - Schedule and attend follow-up appointm ents with your etcher electrolytic. - Continue regular eye examinations and arrange a follow-up appointment. - Report any new symptoms or concerns, e specially swelling from increased amlodipine. [facility] Medical History Vitamin D deficiency Nontoxic multinodular goiter HTN (hypertension) Aortic valve stenosis Nodular goiter Hyperparathyroidism Osteoporosis Diabetes Surgical History History of esophagogastroduodenoscopy (EGD) Family History Mother HTN (hypertension) Father No problems noted. Son Mental health disorder Social History Housing: Condominium Alcohol intake: former Patient Tobacco Use Status: Never used Tobacco service: No Current occupational status: retired Cognitive needs: No Hearing needs: No Vision needs: Yes Questionnaire PHQ-9 Over the last 2 weeks, how often have you been bothered by any of the following problems? 1. Little interest or pleasure in doing things: not at all 2. Feeling down, depressed, or hopeless: not at all 3. Trouble falling or staying asleep, or sleeping too much: not at all 4. Feeling tired or having little energy: not at all 5. Poor appetite or overeating: not at all 6. Feeling bad about yourself - or that you are a failure or have let yourself or your family down: not at all 7. Trouble concentrating on things, such as reading the newspaper or watching television: not at all 8. Moving or speaking so slowly that other people could have noticed. Or the opposite - being so fidgety or restless that you have been moving around a lot more than usual: not at all 9. Thoughts that you would be better off or of hurting yourself in some way: not at all Total score: 0 Depression Screening Interpretation: Negative Depression Screening Done: Yes [id number] - PHQ-9 Billing: Yes Source: Developed by Drs. Dyllan Diaz, Claire Segura, Darian Cortez and colleagues, with an educational jan from [employer]. Thrive Questionnaire Date Thrive assessed: 05/21/24 I am a: Patient What is your living situation today?: I have a steady place to live Within the past 12 months, did the food you bought not last and you didn't have the money to get more?: Often true Within the past 12 months, did you worry whether your food would run out before you got money to buy more?: Often true Do you have trouble paying for medicines?: No Do you have trouble getting transportation to medical appointments?: No Do you have trouble paying your heating and electricity bill?: No Do you have trouble taking care of your child, family member or friend?: No Do you have trouble with day-to-day activities such as bathing, preparing meals, shopping, managing finances, etc.?: No Are you currently unemployed and looking for a job?: No Are you interested in more education?: No THRIVE Score: 2 AUDIT C Alcohol Use Questionnaire (AUDIT-C) 1. How often do you have a drink containing alcohol?: Never 3. How often do you have six or more drinks on one occasion?: Never Total Score: 0 Score Reviewed/Action Taken: Yes ELY-7 AMB Questionnaire ELY-7 Date ELY - 7 assessed: 05/21/24 Feeling nervous, anxious, or on edge: 0 = Not at all Not being able to stop or control worryin = Not at all Worrying too much about different things: 0 = Not at all Trouble relaxin = Not at all Being so restless that it is hard to sit still: 0 = Not at all Becoming easily annoyed or irritable: 0 = Not at all Feeling afraid as if something awful might happen: 0 = Not at all Total ELY-7 score (0-4 normal; 5-9 mild; 10-14 moderate; 15-21 severe): 0 Source: Developed by Drs. Dyllan Diaz, Claire Segura, Darian Cortez and colleagues, with an educational jan from [employer]. ELY-7 Assessment Billing ELY-7 Assessment Tool: ELY-7 Assessment 62004 Physical exam (Primary Care) Vital Signs: Last Vital Signs Temp 97.9 F 05/21/24 08:02 Pulse 65 05/21/24 08:02 BP 156/78 H 05/21/24 08:02 Pulse Ox 96 05/21/24 08:02 BMI result Body Mass Index 29.1 Tobacco/Smoking Status: Tobacco use Status Tobacco use date assessed 05/21/24 05/21/24 08:04 Patient Tobacco Use Status Never used Tobacco 05/21/24 08:04 PHQ-9: PHQ-9 Score PHQ-9: Total score 0 05/21/24 08:17 Depression Screening Interpretation: Negative Thrive Assessment: Date of Thrive Assessment Date Thrive assessed 05/21/24 05/21/24 08:04 Coding Level of Care Code Est Pt Level 3 (24614) Diagnoses Diabetes mellitus type 2 in nonobese E11.9 Vitamin D deficiency E55.9 Additional Codes ELY-7 Assessment Billing - ELY-7 Assessment Tool: ELY-7 Assessment 11710 ([id number]) PHQ-9 - 19884 - PHQ-9 Billing: Yes ([id number]) Assessment & Plan Assessment & Plan (1) Diabetes mellitus type 2 in nonobese: Code(s): E11.9 - Type 2 diabetes mellitus without complications Category: Medical (2) Vitamin D deficiency: Code(s): E55.9 - Vitamin D deficiency, unspecified Category: Medical Plan . encouraged pt to have labs drawn Orders: Orders Vitamin D 25-OH Total Today E55.9 - Vitamin D deficiency, unspecified Lipid Panel Today E11.9 - Type 2 diabetes mellitus without complications Complete Blood Count Auto Diff Today E11.9 - Type 2 diabetes mellitus without complications Comprehensive [place]. Panel Fast Today E11.9 - Type 2 diabetes mellitus without complications TSH reflex Free T4 Today E11.9 - Type 2 diabetes mellitus without complications UA CC w/rflx Micro + Cult Today E11.9 - Type 2 diabetes mellitus without complications Medications: Changed From empagliflozin 10 mg PO DAILY 30 tabs 6RF To empagliflozin 25 mg PO DAILY 90 tabs 6RF From amlodipine 5 mg (2 x 2.5 mg) PO DAILY 90 days 180 tabs 0RF To amlodipine 10 mg PO DAILY 90 days 90 tabs 0RF
[2024-05-21 08:26] VITALS: BP 170/80
== END 2024-05-21 08:36 | disposition home or self-care (01) ==
PROVIDERS: PCP Nurse Practitioner Family; Visit Provider Nurse Practitioner Family
DX: E11.9 Type 2 diabetes mellitus without complications (principal); E55.9 Vitamin D deficiency, unspecified

== ENCOUNTER → 2024-05-21 07:59 | Outpatient (BNVA) | payer OTHER, SELFPAY | PROVIDERS: PCP Nurse Practitioner Family; Visit Provider Nurse Practitioner Family | DX: E11.9 Type 2 diabetes mellitus without complications (principal); E55.9 Vitamin D deficiency, unspecified | CPT/HCPCS: 96127; 99212 ==

== ENCOUNTER 2024-05-24 08:32 | Outpatient (AMB) | payer OTHER, SELFPAY ==
--- NOTE | 2024-05-24 09:02 | A.OFFVIS_ITS ---
VS Expanded 05/24/24 09:04 Height 4 ft 11 in Weight 136 lb 2 oz BMI 27.5 Intake Visit Reasons: T2DM Allergies nickel [NICKEL] Allergy (Unknown, Verified 05/21/24 08:15) RASH HAIR DYE Allergy (Unknown, Uncoded 05/21/24 08:15) SWELLING latex Allergy (Unknown, Uncoded 05/21/24 08:15) itch leather products Allergy (Unknown, Uncoded 05/21/24 08:15) Unknown METAL Allergy (Unknown, Uncoded 05/21/24 08:15) RASH,ITCHING Nutrition Presentation Details: Pt presents for MNT f/u for T2DM 7 d average 203, 14d average 200, 30 d 204 mg/dl (saw PCP who inc Jardiance to 25 , Pt reports she has not started yet, will go to pharm today) Pt reports having 2-3 meals/day and snack in between choosing snacks with less than 20 g carbs Typical meal: B:hot cereal with coconut milk or water with herson seeds snack: green juice (celery/broccoli/jonse/turmeric/green apple) Lunch/dinner: Quinoa beyond meat, potatoes and green peas snack:fried plantains physical activity ADL Hydration: water 8 cups 3 times/d, + 1 c juice, and 1 c tea + green juice 6 oz BS Monitoring Most Recent Diabetes Results: Microalb/Creat Ratio 36.9 ug/mg cr (<30) H 03/21/24 Cholesterol 237 mg/dL (<200) H 03/21/24 HDL Cholesterol 59 mg/dL (>40) 03/21/24 Triglycerides 105 mg/dL (<150) 03/21/24 Creatinine 0.83 mg/dL (0.5-1.4) 03/21/24 Blood Urea Nitrogen 24 mg/dL (9-16) H 03/21/24 Sodium 140 mmol/L (135-145) 03/21/24 Potassium 4.8 mmol/L (3.3-5.1) 03/21/24 Chloride 107 mmol/L (96-108) 03/21/24 Carbon Dioxide 27 mmol/L (22-29) 03/21/24 Calcium 9.8 mg/dL (8.4-10.2) 03/21/24 [facility] Medical History Vitamin D deficiency Nontoxic multinodular goiter HTN (hypertension) Aortic valve stenosis Nodular goiter Hyperparathyroidism Osteoporosis Diabetes Surgical History History of esophagogastroduodenoscopy (EGD) Family History Mother HTN (hypertension) Father No problems noted. Son Mental health disorder Social History [facility] Alcohol intake: former Patient Tobacco Use Status: Never used Tobacco service: No Current occupational status: retired Cognitive needs: No Hearing needs: No Vision needs: Yes Assessment & Plan Assessment & Plan (1) Diabetes mellitus type 2 in nonobese: Code(s): E11.9 - Type 2 diabetes mellitus without complications Category: Medical Plan: Wt: 64 Kg ( 04/07 ) Est kcal needs as per MSJ: 1400 (40% carb, 30% protein/fat) Est fluid needs as per 25-30 ml/d: 1900 Est prot per day as per 1 g/kg bw: 64 Recommend fiber intake : 8-10 g per day and gradually increase to 25-28 g per day for women and 35-38 g for men or as tolerated Recommend sodium intake per day : less than 2300 mg Educated patient on: ( R = reviewed V = verbalizes understanding N/R = needs review N/A = not applicable * Food sources of carbohydrate, adequate serving sizes and its role in various health conditions: R V N/R * Differences between complex carbohydrates a simple carbohydrates, role of fiber in diet: R * Lean protein sources of foods: R V NR * Differences between types of fats and role in diet (mono on saturated fat fatty acids, saturated fatty acids, trans fats): R (relationship f high fat to BG level particularly high fat foods at night or when less active) * Food sources of sodium in salt and healthy modifications for heart health in kidney health: R V R/V * Vitamins and minerals: R V N/R * Healthy plate method concept: R V N/R * Physical activity: Benefits a precaution: R V N/R * Hypoglycemia protocol (rule of 15): R V N/R * Dietary prevention of Hyperglycemia: R Patient Instructions: Have a fruit with penut butter or yogurt as a bedtime snack, choosing lower fat food with protein Continue working on watching total carb at meals/lunch /dinner (45-60 g carbs) keep hydrated by having water with meals/snacks, choose fruits as snack, have tea/milk/jello.soup Coding Level of Care Code Nutr Indiv Subseq (00623) Diagnoses Diabetes mellitus type 2 in nonobese E11.9 Time Spent (min) 20
[2024-05-24 09:04] VITALS: BMI 27.5
== END 2024-05-24 09:34 | disposition home or self-care (01) ==
LOC: HO.ENCR 08:33
PROVIDERS: PCP Nurse Practitioner Family; Visit Provider Dietitian, Registered
DX: E11.9 Type 2 diabetes mellitus without complications (principal)

== ENCOUNTER → 2024-05-24 08:32 | Outpatient (BNVA) | payer OTHER, SELFPAY | PROVIDERS: PCP Nurse Practitioner Family; Visit Provider Dietitian, Registered | DX: E11.9 Type 2 diabetes mellitus without complications (principal) | CPT/HCPCS: 97803 ==

== ENCOUNTER 2024-07-03 07:36 | Outpatient (AMB) | payer OTHER, SELFPAY ==
[2024-07-03 07:38] VITALS: BP 160/82; PULSE 62; O2SAT 93; BMI 28.4
--- NOTE | 2024-07-03 07:38 | A.OFFVIS_ITS ---
Vital Signs 07/03/24 07:38 Height 4 ft 11 in Weight 140 lb 10.479 oz BMI 28.4 BP 160/82 H Blood Pressure Location Lt brachial Position Sitting Pulse 62 Pulse Source Pulse Oximeter Pulse Oximetry (%) 93 Oxygen Delivery Method Room Air Intake Visit Reasons: nontoxic multinodular goiter, osteoporosis Intake Note: Patient present today for Type 2 Diabetes Mellitus and nontoxic multinodular goiter, osteoporosis. Last Diabetic eye exam: 2023 Last Podiatry Visit: Doesn't have one Random Glucose: 177 mg/dl HgA1C: 9.3% Horticulture Professor Required: Yes Horticulture Professor Language: Pet Sitting Services: Horticulture Professor Present Horticulture Professor Name: adali [id number] Information Interpreted: non-clinical & clinical Accompanied by: Self / Same As Patient Allergies nickel [NICKEL] Allergy (Unknown, Verified 07/03/24 07:42) RASH HAIR DYE Allergy (Unknown, Uncoded 07/03/24 07:42) SWELLING latex Allergy (Unknown, Uncoded 07/03/24 07:42) itch leather products Allergy (Unknown, Uncoded 07/03/24 07:42) Unknown METAL Allergy (Unknown, Uncoded 07/03/24 07:42) RASH,ITCHING Medication List - Last Reconciled 07/03/24 by Gracia Gonzáles MD alcohol swabs (Alcohol Prep Pads) 1 pad topical DAILY amlodipine 10 mg PO DAILY 90 days ascorbate calcium (vitamin C) 500 mg PO DAILY blood sugar diagnostic use to check sugar once a day or if needed for sign and symptoms of hypo/hyperglycemia blood sugar diagnostic (Modanisauch Ultra Test strips) test blood sugar 2 times a day blood-glucose meter ([email or web address] [email or web address] Meter) use to check sugar twice a day cetirizine 10 mg PO DAILY PRN cholecalciferol (vitamin D3) 50 mcg PO DAILY empagliflozin 25 mg PO DAILY lancets (BD Ultra-Fine II Lancets) Use to check blood sugar once daily or if needed for signs & symptoms of hypo/hyperglycemia lancets use to check sugar once a day or if needed for sign and symptoms of hypo/hyperglycemia lancets ([email or web address].comTouch UltraSoft 2 Lancet) check blood sugar twice a day losartan 100 mg PO DAILY magnesium oxide 400 mg PO DAILY mecobalamin (vitamin B12) 1,000 mcg PO DAILY melatonin 3 mg PO BEDTIME PRN milk iyeh-vlgwsv-execu-licoric 120-280 mg caps PO multivitamin 1 tab PO DAILY pioglitazone (Actos) 30 mg PO DAILY rosuvastatin 20 mg PO DAILY vitamin A palmitate 10,000 units PO DAILY vitamin E mixed units PO HPI Comments Details: 89 YO Female with PMHx type 2 diabetes, HLD, Osteoporosis, hyperparathyroidism and a multinodular goiter. Today she is here for follow up of Type 2 DM Type 2 DM At least since 2014 Per last PCP note August 2023 Patient's A1c in office is 9.3 down from previous value of 11.4. The only medication the patient is taking for diabetes is Jardiance 25 mg p.o. daily. However patient takes this inconsistently, closer to every other day. Patient declines the use of metformin, declines insulin. After several attempts patient continues to decline these medications even after discussion about the benefits of keeping sugar levels in control A1c September 04 9.3 % 10 % 11/23/23 9.4% POC 02/20/24 8.3 % Apr 07 9.3 % POC 07/03/24 today POC fasting glucose 177 mg/dl Reports increased urination , denies increased thirst No nausea or vomiting , no abdominal pain Prior Meds OZempic 1 mg wekly, patient said caused itching and problems with swallowing , not willing to retry Current meds JArdiance 25 mg daily We have spoken in October 2023 about her returning Jardiance with better hygiene practices, however she did not give it a try.No back on it. denies any UTI or yeast infection She is also not willing to try metformin, says aamirtrs to force it on me, it will not do me good , however she has not had any adverse effects to it in the past when asked. SMBGs Glucometer reviewed SMBGS 190s to 200s fasting for all of June Microvascular complications No neuropathy Has microalbuminuria, normal kidney function Last eye visit September 2023, no retinopathy per patient Macrovascular complications No heart attack or stroke BP at home 140s to 169/77 and then sometimes her blood pressure will drop to 120s. She takes losartan 100 mg UMCr ratio high at 36.9 04/07 Couldnt tolerate atorvastatin due to muscle aches, switch to rosuvastatin 20 mg in October 2023, tolerating that better. LDL Apr 07 :157 Laboratory Tests 2) Multinodular goiter Prior HPI from Dr. Aguilar visit The patient underwent a thyroid US 11/16/18 to assess for a parathyroid adenoma. She was found to have multiple large thyroid nodules meeting indication for FNA biopsy. On 03/22/2019 she underwent FNA biopsy of the L mid pole 3.4 cm nodule with benign cytology ([place] Category II). She underwent FNA biopsy also of the R mid pole 2.3 cm nodule with cytology revealing Atypia of Undetermined Significance (AUS - [place] Category III). Affirma was benign. She opted for yearly surveillance with thyroid US. She denies any difficulty swallowing or compressive symptoms currently. Most recent US from August 04 showed stable size of her dominant 3.3 cm left lobe nodule but she has multiple other nodules. Based on mutual discussion with Dr. Mancini patient endorses that given her age she doesnt want aggressive measures like FNA or surgery and for now just wants to be followed clinically for the thyroid. Interval history Denies any more difficulty swallowing , says it stopped when she stopped the Ozempic Laboratory Tests 09/28/23 08:09 TSH 0.85 3)Osteoporosis/hyperparathyrodism: not addressed today but per last notes, patient doesnt want treatment for these DXA: 10/21/2020 FINDINGS: AP SPINE L1-L4: Current: BMD 0.942 g/cm2, Z-score 0.0, T-score -2.0, osteopenia, 6.4% increase from previous, 7.5% increase from baseline (<5% change is not significant). Prior: BMD 0.885 g/cm2. Baseline: BMD 0.876 g/cm2. LEFT FEMUR, NECK: Current: BMD 0.640 g/cm2, Z-score -0.5, T-score -2.9, osteoporosis. Prior: BMD 0.624 g/cm2. Baseline: BMD 0.701 g/cm2. LEFT FEMUR, TOTAL: Current: BMD 0.682 g/cm2, Z-score -0.3, T-score -2.6, osteoporosis, 0.0% change from previous, 11.8% decrease from baseline (<5% change is not significant). Prior: BMD 0.682 g/cm2. Baseline: BMD 0.773 g/cm2. Labs: Laboratory Tests 10/02/19 04/02/20 07/03/20 09:25 11:41 09:32 Calcium PTH Intact 108 H 79 H 99 H 09/28/23 08:09 Calcium 9.5 PTH Intact Physical exam General: sitting comfortably in bed in no acute distress HEENT: normocephalic/atraumatic, moist oral mucosa Neck: Palpable bilateral thyroid nodules. Cardiac: normal heart sounds Pulm: normal breath sounds B/L, no added breath sounds Abd: not distended, no tenderness Extremities: no edema, no signs of myxedema Neuro: AAO x3, Speech: normal, no facial droop, moving all 4 extremities Skin: no rash Foot exam: intact sensation to monofilament, intact pulses, intact vibration Laboratory Tests 10/02/19 04/02/20 07/03/20 09:25 11:41 09:32 Sodium Potassium Creatinine Estimated GFR Hemoglobin A1c % Calcium Triglycerides Cholesterol LDL Cholesterol, Calc HDL Cholesterol 25-OH Vitamin D Total TSH PTH Intact 108 H 79 H 99 H Urine Creatinine Urine Microalbumin Microalb/Creat Ratio 09/28/23 03/21/24 08:09 09:00 Sodium 140 Potassium 4.8 Creatinine 0.83 Estimated GFR > 60 Hemoglobin A1c % 8.3 H Calcium 9.5 Triglycerides 105 Cholesterol 237 H LDL Cholesterol, Calc 157 H HDL Cholesterol 59 25-OH Vitamin D Total 76.1 TSH 0.85 PTH Intact Urine Creatinine 37.92 Urine Microalbumin 14.0 Microalb/Creat Ratio 36.9 H 09/08/2408/11/24 08:1510:04Hgb A1c (Clinic) 9.3 H 10.0 H PFSH Medical History Vitamin D deficiency Nontoxic multinodular goiter HTN (hypertension) Aortic valve stenosis Nodular goiter Hyperparathyroidism Osteoporosis Diabetes Surgical History History of esophagogastroduodenoscopy (EGD) Family History Mother HTN (hypertension) Father No problems noted. Son Mental health disorder Social History Housing: Condominium Alcohol intake: former Patient Tobacco Use Status: Never used Tobacco service: No Current occupational status: retired Cognitive needs: No Hearing needs: No Vision needs: Yes Physical Exam Vital Signs: Last Vital Signs Pulse 62 07/03/24 07:38 BP 160/82 H 07/03/24 07:38 Pulse Ox 93 07/03/24 07:38 Oxygen Delivery Method Room Air 07/03/24 07:38 BMI result Body Mass Index 28.4 Results AMB Hemoglobin A1c AMB Hemoglobin A1c 9.3 % Last Edit by PIPE Lewis on 07/03/24 08:02 Results Reviewed Results Reviewed: Laboratory Last Values Glucose (Clinic) 177 mg/dL (60-115) H 07/03/24 07:52 Hgb A1c (Clinic) 9.3 % (4.0-6.0) H 07/03/24 08:02 Assessment & Plan Assessment & Plan (1) Diabetes: Code(s): E11.9 - Type 2 diabetes mellitus without complications Category: Medical Qualifiers: Diabetes mellitus complication status: with hyperglycemia Diabetes mellitus ferry terminal supervisor insulin use: without ferry terminal supervisor use Diabetes mellitus type: type 2 Qualified Code(s): E11.65 - Type 2 diabetes mellitus with hyperglycemia Plan: A. Last HBA1c 9.3% from today POC 07/03/2024 which is up from 8.3% in March 2024 .. has a relatively higher CV risk as compared to the general population based on his diabetic status, hyperlipidemia ?and uncontrolled hypertension. Also has a history of aortic stenosis.. . She was counseled regarding taking insulin, metformin in the past however she refused. She was most recently prescribed Ozempic and was on the 1 mg dose up until her last visit with me but she says the medication caused itching and difficulty swallowing. She says this all stopped after stopping the medication. While I did discuss with her that unlikely that Ozempic was causing difficulty swallowing, she is refusing to try any GLP 1 agonist. She is now back on Jardiance 25 mg daily. Tolerating that well now. I reviewed her glucometer data which shows her blood sugars are in the 190s to 200s, I went over with her regarding risk of complications of hyperglycemia and that she needs more medication. She is willing to try Actos, no history of heart failure, no shortness of breath. B:?Blood pressure is under suboptimal control, for renal protection in the setting of diabetes. Her blood pressures at home are elevated in the 140s to 160s most days. She is on losartan 100 mg daily. Saw cardiology December 2023 and amlodipine was up titrated , she is very opposed to new medications family make a few changes at a time and since today I am adding Actos to her regimen, I messaging her PCP to see if they she is willing to try add blood pressure medication to her regimen.. C:?LDL is 157 in March 2024 which is down from 165 mg/dL 10/04, which is still above goal. Goal is less than 90. D:?Diet control and healthy lifestyle was discussed in detail. E: Last visit with grinder set up operator centerless was on 09/2023. No diabetic retinopathy. F: Foot care is good. She has a referral for Podiatry but she has not seen them. G: eGFR >60 and microalbumin/Cr ratio 30.8 from March 2024 , she is already on losartan 100 mg daily. Plan: -continue Jardiance 25 mg daily -start Actos 30 mg daily -refuses metformin, insulin, GLP 1 agonist -continue to monitor blood sugars and bring glucometer to next appointment -educator and public safety police follow up -follow up in 8 weeks (2) Dyslipidemia: Code(s): E78.5 - Hyperlipidemia, unspecified Category: Medical Plan: LDL noted to be elevated at 157 from March 2024 at and was 165 mg/dL from 10/04. Goal is less than 90 mg/dL. She is at increased risk of stroke and cardiovascular, T. Advised patient about this. We had switched from atorvastatin 80 mg daily to rosuvastatin 20 mg daily because she was not adherent with the atorvastatin due to muscle aches. We will plan to repeat lipid panel whenever I do the next set of labs. Plan: -continue rosuvastatin 20 mg daily -plan to repeat lipid panel next time Labs are ordered (3) Nontoxic multinodular goiter: Code(s): E04.2 - Nontoxic multinodular goiter Category: Medical Plan: The patient underwent a thyroid US 11/16/18 to assess for a parathyroid adenoma. She was found to have multiple large thyroid nodules meeting indication for FNA biopsy. On 03/22/2019 she underwent FNA biopsy of the L mid pole 3.4 cm nodule with benign cytology ([place] Category II). She underwent FNA biopsy also of the R mid pole 2.3 cm nodule with cytology revealing Atypia of Undetermined Significance (AUS - [place] Category III). Affirma was benign. She opted for yearly surveillance with thyroid US. Most recent US from August 04 showed stable size of her dominant 3.3 cm left lobe nodule but she has multiple other nodules. Based on mutual discussion with Dr. Mancini patient endorses that given her age she didnt want aggressive measures like FNA or surgery and for now just wants to be followed clinically for the thyroid. She currently denies any compressive symptoms. At this time we will follow her clinically and if she has any clinical symptoms we will plan to repeat an ultrasound. Plan I spent 30 minutes in reviewing the record, seeing the patient and documenting in the medical record. Orders: Orders AMB Hemoglobin A1c Today E11.9 - Type 2 diabetes mellitus without complications, Z13.9 - Encounter for screening, unspecified Medications: New pioglitazone (Actos) 30 mg PO DAILY 30 tabs 6RF Patient Instructions: Continue JArdiance 25 mg daily Start Actos (pioglitazone) 30 mg daily See primary care for Blood Pressure elevations Coding Level of Care Code Est Pt Level 4 (80149) Complex EM visit Add On G2211 Diagnoses Type 2 diabetes mellitus with hyperglycemia, without long-term current use of insulin E11.65 Diabetes mellitus complication status: with hyperglycemia Diabetes mellitus half-way insulin use: without ferry terminal supervisor use Diabetes mellitus type: type 2 Dyslipidemia E78.5 Nontoxic multinodular goiter E04.2 Time Spent (min) 30
[2024-07-03 07:56] LABS: Glucose, Whole Blood 177 mg/dL (60-115)
== END 2024-07-03 08:21 | disposition home or self-care (01) ==
LOC: HO.ENCR 07:37
PROVIDERS: PCP Nurse Practitioner Family; Visit Provider Student in an Organized Health Care Education/Training Program
DX: E11.65 Type 2 diabetes mellitus with hyperglycemia (principal); E78.5 Hyperlipidemia, unspecified; E04.2 Nontoxic multinodular goiter; Z13.9 Encounter for screening, unspecified; E11.9 Type 2 diabetes mellitus without complications
CPT/HCPCS: 99214; G2211

== ENCOUNTER → 2024-07-03 07:36 | Outpatient (BNVA) | payer OTHER, SELFPAY | PROVIDERS: PCP Nurse Practitioner Family; Visit Provider Student in an Organized Health Care Education/Training Program | DX: E11.65 Type 2 diabetes mellitus with hyperglycemia (principal); E78.5 Hyperlipidemia, unspecified; E04.2 Nontoxic multinodular goiter; Z79.84 Long term (current) use of oral hypoglycemic drugs | CPT/HCPCS: 82947; 83036; 99212 ==

== ENCOUNTER 2024-07-04 08:38 | Outpatient (AMB) | payer OTHER, SELFPAY ==
--- NOTE | 2024-07-04 09:33 | A.OFFVIS_ITS ---
Intake Intake Visit Reasons: 60 min Gang Hemstitching Machine Operator Required: Yes Gang Hemstitching Machine Operator Language: Cardiothoracic Physiotherapist Name: Amado Accompanied by: Self / Same As Patient Allergies nickel [NICKEL] Allergy (Unknown, Verified 07/03/24 07:42) RASH HAIR DYE Allergy (Unknown, Uncoded 07/03/24 07:42) SWELLING latex Allergy (Unknown, Uncoded 07/03/24 07:42) itch leather products Allergy (Unknown, Uncoded 07/03/24 07:42) Unknown METAL Allergy (Unknown, Uncoded 07/03/24 07:42) RASH,ITCHING HPI Comprehensive Diabetes Asmnt Most Recent Diabetes Results: Microalb/Creat Ratio 36.9 ug/mg cr (<30) H 03/21/24 Cholesterol 237 mg/dL (<200) H 03/21/24 HDL Cholesterol 59 mg/dL (>40) 03/21/24 Triglycerides 105 mg/dL (<150) 03/21/24 Creatinine 0.83 mg/dL (0.5-1.4) 03/21/24 Blood Urea Nitrogen 24 mg/dL (9-16) H 03/21/24 Sodium 140 mmol/L (135-145) 03/21/24 Potassium 4.8 mmol/L (3.3-5.1) 03/21/24 Chloride 107 mmol/L (96-108) 03/21/24 Carbon Dioxide 27 mmol/L (22-29) 03/21/24 Calcium 9.8 mg/dL (8.4-10.2) 03/21/24 [facility] Medical History Vitamin D deficiency Nontoxic multinodular goiter HTN (hypertension) Aortic valve stenosis Nodular goiter Hyperparathyroidism Osteoporosis Diabetes Surgical History History of esophagogastroduodenoscopy (EGD) Family History Mother HTN (hypertension) Father No problems noted. Son Mental health disorder Social History Housing: Condominium Alcohol intake: former Patient Tobacco Use Status: Never used Tobacco service: No Current occupational status: retired Cognitive needs: No Hearing needs: No Vision needs: Yes Assessment & Plan Assessment & Plan (1) Diabetes: Code(s): E11.9 - Type 2 diabetes mellitus without complications Qualifiers: Diabetes mellitus type: type 2 Diabetes mellitus business management analyst insulin use: without business management analyst use Diabetes mellitus complication status: with hyperglycemia Qualified Code(s): E11.65 - Type 2 diabetes mellitus with hyperglycemia Plan: Diabetes self-management education and support participation record Assessment/scale: 1= needs instructed? 2= needs review? 3= comprehend keep point? 4= demonstrates understanding/ competent? NC= Not Covered Topics Learning Objective: Initial visit Initial or post srvc Initial or post srvc Initial or post srvc Initial or post srvc Initial or post srvc Post srvc Comments Pre Edu-assessment/plan Outcome or reassess Outcome or reassess Outcome or reassess Outcome or reassess Outcome or reassess Outcome or reassess Diabetes pathophysiology 1 Healthy eating 1 Being active 1 Taking medication 1 Monitoring glucose 1 Acute complication 1 Chronic complicated 1 Lifestyle and healthy coping 1 Diabetes distress in support 1 ?Diabetes pathophysiology: ?Defined diabetes med identify own type of diabetes; list 3 options for treating diabetes Healthy eating: ?Described effect of type, amount and ?timing of food on blood glucose; list 3 methods for planning meal Being active: ?State effect of exercise on blood glucose level Taking medication: ?State effect of diabetes medications on diabetes; name diabetes medications taking, action and side effects Monitoring glucose: ?Identify recommended blood glucose targets and personal target Acute complication: ?List symptoms and treatment of hyper and hypoglycemia, DKA, sick day guidelines and guidelines for severe weather or situations of crisis and diabetes supply manage Chronic complication: ?To find the relationship of blood glucose levels to long- term complications of diabetes in screening and preventative measures Lifestyle and healthy coping: ?Described lifestyle and healthy coping strategies to rule out diabetes self-management Diabetes to stress and support: ?Recognize Diabetes to stress and be able to identified support options Learning objectives: The patient was provided with verbal and written education on the following topics as outlined below. Assess patient education level/literacy/barriers Pt last A1c 9.3% on 07/03/24 Patient questions/concerns The patient met all learning objectives and was able to verbalize understanding and provide teach back of education topics discussed . The patient was provided with the opportunity to ask questions and all questions were answered. Topics covered in today?s session included: Medications (If applicable) * Name of medication? * Dosing/administration instructions? * Mechanism of action? * Potential side effects? * Potential adverse reaction and appropriate treatment? * Review onset, peak, duration Assess for concerns re: insurance coverage, cost, barriers to compliance Insulin/Injectables (If applicable) * Storage/care of insulin?? * Injection sites? * Site rotation? * Onset, peak, duration * Drawing up insulin? * Injecting insulin/other injectables? * Sharps disposal Continuous blood glucose monitoring (if applicable) Hypoglycemia and Hyperglycemia * Signs and symptoms? * Causes?? * Treatment? * Preventing hypoglycemia? * When to seek medical attention Target Goals: * Blood glucose targets and how you feel when your blood glucose is in and out of your target ranges. * Monitoring and knowing your A1C. * What can make blood glucose go up and down and preventing high and low blood glucose. * Review of blood sugar targets in expected goal range and outside of expected goal range. * Problem solving and preventing hyper/hypoglycemia. * Sick day management of diabetes. * Using blood sugar results in decision making process in managing diabetes. ?Patient was receptive to information provided and participated in the discussion. Asked?appropriate questions and demonstrated good understanding of the topics discussed.? ? Educational Materials: The patient was provided with the following written educational materials: Target Goal handout Smart Goal Assessment:? Patient will identify foods in current meal plan that contain carbohydrates Pt met goal 50% New Smart Goal:Add water to high carb drinks Patient Response to instructions: Comprehension of Instructions: fair Readiness to make changes:? pre-contemplation How confident they feel about making changes:poor Portions of this note were created using voice recognition software, please excuse any words or phrases that may have been misinterpreted. (2) Diabetes mellitus type 2 in nonobese: Code(s): E11.9 - Type 2 diabetes mellitus without complications Plan: Coding Level of Care Code Est Pt Level 1 (59470) Diagnoses Type 2 diabetes mellitus with hyperglycemia, without long-term current use of insulin E11.65 Diabetes mellitus type: type 2 Diabetes mellitus business management analyst insulin use: without business management analyst use Diabetes mellitus complication status: with hyperglycemia Diabetes mellitus type 2 in nonobese E11.9
== END 2024-07-04 09:37 | disposition home or self-care (01) ==
LOC: HO.ENCR 08:38
PROVIDERS: PCP Nurse Practitioner Family; Visit Provider Registered Nurse Diabetes Educator
DX: E11.65 Type 2 diabetes mellitus with hyperglycemia (principal); E11.9 Type 2 diabetes mellitus without complications

== ENCOUNTER → 2024-07-04 08:38 | Outpatient (BNVA) | payer OTHER, SELFPAY | PROVIDERS: PCP Nurse Practitioner Family; Visit Provider Registered Nurse Diabetes Educator | DX: E11.65 Type 2 diabetes mellitus with hyperglycemia (principal) | CPT/HCPCS: 99211 ==

== ENCOUNTER 2024-08-22 08:16 | Outpatient (REF) | payer OTHER, SELFPAY ==
[2024-08-22 10:34] LABS: MANUAL DIFF FLAG NO
[2024-08-22 10:43] LABS: Basophils Percent Auto 0.5 % (0-2); Eosinophils Absolute Auto 0.2 X10*3/uL (0.0-0.4); Eosinophils Percent Auto 2.6 % (0-4); Hematocrit 44.9 % (37.0-47.0); Hemoglobin 15.3 g/dl (12.0-16.0); Imm Gran Abs Auto 0.03 X10*3/uL (0.00-0.03); Imm Gran Pct Auto 0.4 % (0.0-0.4); Lymphocytes Absolute Auto 3.2 X10*3/uL (1.2-4.9); Lymphocytes Percent Auto 43.4 % (20-40); Mean Corpuscular HGB Conc 34.1 g/dl (31.0-35.0); Mean Corpuscular Hemoglobin 30.4 pg (27.0-33.0); Mean Corpuscular Volume 89.3 fL (80.0-98.0); Mean Platelet Volume 11.1 fL (9.4-12.3); Monocytes Absolute Auto 0.6 X10*3/uL (0.1-1.2); Monocytes Percent Auto 7.7 % (2-11); Neutrophils Absolute Auto 3.3 x10*3/uL (2.0-8.3); Neutrophils Percent Auto 45.4 % (45-73); Platelet Count 230 X10*3/uL (160-400); Red Blood Count 5.03 X10*6/uL (4.20-5.50); White Blood Count 7.4 X10*3/uL (4.8-10.8)
[2024-08-22 10:49] LABS: Appearance Urine Clear; Color Urine Dark Yellow; Glucose Urine UA >=1000 mg/dL (Negative); Leukocyte Esterase Urine Trace (Negative); Nitrite Urine Negative (Negative); PH 5.5 (5.0-9.0); Specific Gravity - Urine >= 1.030 (1.005-1.025); UMIC TRIGGER UACC YES; Urine Blood Negative (Negative); Urine Ketones Negative (Negative); Urine Protein Negative (Neg-Trace)
[2024-08-22 11:09] LABS: Alanine Aminotransferase 33 U/L (0-31); Albumin Level 4.6 g/dL (3.5-5.0); Alkaline Phosphatase 93 U/L (39-117); Anion Gap 10 (12-20); Aspartate Amino Transferase 25 U/L (5-31); Bilirubin Total 0.5 mg/dL (0.0-1.0); Blood Urea Nitrogen 22 mg/dL (9-16); Calcium 10.5 mg/dL (8.4-10.2); Carbon Dioxide 26 mmol/L (22-29); Chloride 106 mmol/L (96-108); Cholesterol 197 mg/dL (<200); Estimated Glomerular Filt Rate > 60; Glucose Fasting 208 mg/dL (60-99); HDL Cholesterol 51 mg/dL (>40); LDL Cholesterol Calculated 121 mg/dL (<100); Potassium 4.3 mmol/L (3.3-5.1); Sodium 138 mmol/L (135-145); TSH reflex Free T4 0.69 uIU/mL (0.32-4.0); Total Protein 7.6 g/dL (6.5-8.0); Triglycerides 125 mg/dL (<150); Vitamin D 25-OH Total 130.7 ng/mL (>30)
[2024-08-22 11:15] LABS: Bacteria Urine None Seen (None Seen); Hyaline Casts Urine 0-2 /LPF (0-2); RBC Urine 0-2 /HPF (0-2); WBC Urine 0-5 /HPF (0-5)
== END 2024-08-22 08:17 | disposition home or self-care (01) ==
LOC: HO.HMGCLDS 08:16
PROVIDERS: PCP Nurse Practitioner Family; Visit Provider Nurse Practitioner Family
DX: E55.9 Vitamin D deficiency, unspecified (principal); E11.9 Type 2 diabetes mellitus without complications
CPT/HCPCS: 36415; 80053; 80061; 81001; 82306; 84443; 85025

== ENCOUNTER 2024-08-28 07:53 | Outpatient (AMB) | payer OTHER, SELFPAY ==
[2024-08-28 08:08] VITALS: BP 150/76; PULSE 55; TEMP 36.4; O2SAT 96; BMI 27.3
--- NOTE | 2024-08-28 08:08 | MHC.PC.OV ---
Vital Signs 08/28/24 08:08 08/28/24 09:54 Height 4 ft 11 in Weight 135 lb BMI 27.3 BP 150/76 H 142/78 H Blood Pressure Location Lt brachial Lt brachial Position Sitting Sitting Pulse 55 Pulse Source Pulse Oximeter Temp 97.6 F Temp Source Oral Pulse Oximetry (%) 96 Oxygen Delivery Method Room Air Intake Visit Reasons: ANNUAL PE Parcel Contractor Required: Yes Parcel Contractor Language: Portuguese Information Interpreted: non-clinical & clinical Accompanied by: Self / Same As Patient Allergies nickel [NICKEL] Allergy (Unknown, Verified 08/28/24 08:11) RASH HAIR DYE Allergy (Unknown, Uncoded 07/03/24 07:42) SWELLING latex Allergy (Unknown, Uncoded 07/03/24 07:42) itch leather products Allergy (Unknown, Uncoded 07/03/24 07:42) Unknown METAL Allergy (Unknown, Uncoded 07/03/24 07:42) RASH,ITCHING Tobacco use date assessed: 05/21/24 Fall risk assessment: No Falls in past year Last assessed Fall Risk: 08/28/24 Dental Screening Dental Screen Date: 05/21/24 HPI ANNUAL PE HPI Details History of Present Illness The patient is an 89-year-old female presenting with a routine follow-up for chronic condition management. She has a history of hyperparathyroidism, diabetes mellitus, osteoporosis, and a thyroid disorder. She regularly consults with a vp purchasing and an personal care assistant for these conditions. Pt declines colon screens, mammos, bone densities. HTN: reports BPs at home are mostly systolically in the 130s Health Maintenance Social History Review of Systems - Cardiovascular: Denies chest pain, denies increased shortness of breath - Gastrointestinal: Denies abdominal pain, denies constipation, denies diarrhea - Psychiatric: Denies suicidal ideation, denies homicidal ideation Physical Exam General: Cooperative, healthy appearing, comfortable, no acute distress and well developed Orientation: Patient oriented x3 Limitations: No limitations Head: Normal to inspection Ears: right ear canal with piece of Q-tip present (cotton). easily removed with ear lavage Nose: Normal external nose present Face and sinus: Normal facial exam Eyes: Appearance normal, both eyes and all related structures Neck: Normal visual inspection and Yes full ROM Respiratory: Lungs were fairly clear bilaterally Cardiovascular: Systolic murmur noted in the aortic region. Regular rate and rhythm. Normal S1 and S2 GI: Normal to inspection. Soft to palpation and nontender Skin: No rashes or lesions noted Neuro: Patient oriented x3 Extremities: Feet were intact with positive sensation using monofilament. Normal to inspection Results Plan cont to follow up with specialists Patient was informed and verbally consented to the use of an ambient scribe for clinic note documentation during this visit. Discussion Notes Patient Instructions [facility] Medical History Vitamin D deficiency Nontoxic multinodular goiter HTN (hypertension) Aortic valve stenosis Nodular goiter Hyperparathyroidism Osteoporosis Diabetes Surgical History History of esophagogastroduodenoscopy (EGD) Family History Mother HTN (hypertension) Father No problems noted. Son Mental health disorder Social History Housing: Condominium Alcohol intake: former Patient Tobacco Use Status: Never used Tobacco service: No Current occupational status: retired Cognitive needs: No Hearing needs: No Vision needs: Yes Questionnaire PHQ-9 Over the last 2 weeks, how often have you been bothered by any of the following problems? 1. Little interest or pleasure in doing things: not at all 2. Feeling down, depressed, or hopeless: not at all 3. Trouble falling or staying asleep, or sleeping too much: several days 4. Feeling tired or having little energy: several days 5. Poor appetite or overeating: not at all 6. Feeling bad about yourself - or that you are a failure or have let yourself or your family down: not at all 7. Trouble concentrating on things, such as reading the newspaper or watching television: not at all 8. Moving or speaking so slowly that other people could have noticed. Or the opposite - being so fidgety or restless that you have been moving around a lot more than usual: not at all 9. Thoughts that you would be better off or of hurting yourself in some way: not at all Total score: 2 Depression Screening Interpretation: Negative Depression Screening Done: Yes 89646 - PHQ-9 Billing: Yes Source: Developed by Carmelo Daviset B.W. Colton, Darian Cortez and colleagues, with an educational jan from [employer]. Thrive Questionnaire Date Thrive assessed: 08/28/24 I am a: Patient What is your living situation today?: I choose not to answer this question Within the past 12 months, did the food you bought not last and you didn't have the money to get more?: I choose not to answer this question Within the past 12 months, did you worry whether your food would run out before you got money to buy more?: I choose not to answer this question Do you have trouble paying for medicines?: No Do you have trouble getting transportation to medical appointments?: No Do you have trouble paying your heating and electricity bill?: I choose not to answer this question Do you have trouble taking care of your child, family member or friend?: No Do you have trouble with day-to-day activities such as bathing, preparing meals, shopping, managing finances, etc.?: No Are you currently unemployed and looking for a job?: I choose not to answer this question Are you interested in more education?: I choose not to answer this question THRIVE Score: 0 AUDIT C Alcohol Use Questionnaire (AUDIT-C) 1. How often do you have a drink containing alcohol?: Never 3. How often do you have six or more drinks on one occasion?: Never Total Score: 0 Score Reviewed/Action Taken: Yes ELY-7 AMB Questionnaire ELY-7 Date ELY - 7 assessed: 05/21/24 Source: Developed by Drs. Dyllan Diaz, Claire Segura, Darian Cortez and colleagues, with an educational jan from [employer]. Physical exam (Primary Care) Vital Signs: Last Vital Signs Temp 97.6 F 08/28/24 08:08 Pulse 55 08/28/24 08:08 BP 150/76 H 08/28/24 08:08 Pulse Ox 96 08/28/24 08:08 Oxygen Delivery Method Room Air 08/28/24 08:08 BMI result Body Mass Index 27.3 Tobacco/Smoking Status: Tobacco use Status Tobacco use date assessed 05/21/24 08/28/24 08:10 Patient Tobacco Use Status Never used Tobacco 08/28/24 08:10 PHQ-9: PHQ-9 Score PHQ-9: Total score 2 08/28/24 09:44 Depression Screening Interpretation: Negative Thrive Assessment: Date of Thrive Assessment Date Thrive assessed 08/28/24 08/28/24 08:10 Office Procedures Cerumen Removal From which ear canal was the cerumen removed: right Removal: irrigation Notes: patient tolerated procedure well, no complications and ear canal clear [id number] Irrigation/Lavage (qtip tip removed (small piece of cotton residue) from right ear canal with use of irrigation, no cerumen) Coding Level of Care Code Est Pt Prev Care >65y(63517) Diagnoses Type 2 diabetes mellitus with hyperglycemia, without long-term current use of insulin E11.65 Diabetes mellitus type: type 2 Diabetes mellitus remote computer terminal operator insulin use: without remote computer terminal operator use Diabetes mellitus complication status: with hyperglycemia Aortic valve stenosis, etiology of cardiac valve disease unspecified I35.0 Cardiac valve disease etiology: etiology unspecified Hyperparathyroidism E21.3 Osteoporosis, unspecified osteoporosis type, unspecified pathological fracture presence M81.0 Osteoporosis type: unspecified Presence of current pathological fracture: unspecified Foreign body in ear T16.9XXA CPT Codes Office Procedure - CPT: 28984-Qga Irrigation/Lavage ([id number]) Additional Codes PHQ-9 - 56218 - PHQ-9 Billing: Yes ([id number]) Assessment & Plan Assessment & Plan (1) Diabetes: Code(s): E11.9 - Type 2 diabetes mellitus without complications Category: Medical Qualifiers: Diabetes mellitus type: type 2 Diabetes mellitus remote computer terminal operator insulin use: without custodial use Diabetes mellitus complication status: with hyperglycemia Qualified Code(s): E11.65 - Type 2 diabetes mellitus with hyperglycemia (2) Aortic valve stenosis: Comment: Will get referral to Cardiology. Patient also has a history of abnormal EKG. Code(s): I35.0 - Nonrheumatic aortic (valve) stenosis Category: Medical Qualifiers: Cardiac valve disease etiology: etiology unspecified Qualified Code(s): I35.0 - Nonrheumatic aortic (valve) stenosis (3) Hyperparathyroidism: Code(s): E21.3 - Hyperparathyroidism, unspecified Category: Medical (4) Osteoporosis: Code(s): M81.0 - Age-related osteoporosis without current pathological fracture Category: Medical Qualifiers: Osteoporosis type: unspecified Presence of current pathological fracture: unspecified Qualified Code(s): M81.0 - Age-related osteoporosis without current pathological fracture (5) Foreign body in ear: Code(s): T16.9XXA - Foreign body in ear, unspecified ear, initial encounter Category: Medical Plan .
[2024-08-28 09:54] VITALS: BP 142/78
== END 2024-08-28 10:07 | disposition home or self-care (01) ==
LOC: HO.HMCC 07:54
PROVIDERS: PCP Nurse Practitioner Family; Visit Provider Nurse Practitioner Family
DX: Z00.00 Encounter for general adult medical examination without abnormal findings (principal); E11.65 Type 2 diabetes mellitus with hyperglycemia; I35.0 Nonrheumatic aortic (valve) stenosis; E21.3 Hyperparathyroidism, unspecified; M81.0 Age-related osteoporosis without current pathological fracture; T16.9XXA Foreign body in ear, unspecified ear, initial encounter

== ENCOUNTER → 2024-08-28 07:53 | Outpatient (BNVA) | payer OTHER, SELFPAY | PROVIDERS: PCP Nurse Practitioner Family; Visit Provider Nurse Practitioner Family | DX: E11.65 Type 2 diabetes mellitus with hyperglycemia (principal); E21.3 Hyperparathyroidism, unspecified; M81.0 Age-related osteoporosis without current pathological fracture; I10 Essential (primary) hypertension; I35.0 Nonrheumatic aortic (valve) stenosis; T16.1XXA Foreign body in right ear, initial encounter; X58.XXXA Exposure to other specified factors, initial encounter; Y93.9 Activity, unspecified; Y92.9 Unspecified place or not applicable; Y99.9 Unspecified external cause status | CPT/HCPCS: 69209; 96127; 99397 ==

== ENCOUNTER 2024-10-02 07:55 | Outpatient (AMB) | payer OTHER, SELFPAY ==
--- NOTE | 2024-10-02 09:11 | A.OFFVIS_ITS ---
VS Expanded 10/02/24 09:15 Height 4 ft 11 in Weight 134 lb 7.7 oz BMI 27.2 Intake Visit Reasons: T2DM Allergies nickel (NICKEL) Allergy (Unknown, Verified 10/02/24 08:05) RASH HAIR DYE Allergy (Unknown, Uncoded 10/02/24 08:05) SWELLING latex Allergy (Unknown, Uncoded 10/02/24 08:05) itch leather products Allergy (Unknown, Uncoded 10/02/24 08:05) Unknown METAL Allergy (Unknown, Uncoded 10/02/24 08:05) RASH,ITCHING Nutrition Presentation Details: Pt presents for MNT f/u for T2DM Pt reports having good appetite and is working with MD regarding med management for DM. 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 Typical meal intake water with lemon and garlic 10 am 2 eggs with zucchini/corn with beans added, 4pm: salad zucchini/lettuce/rice/and spaghetti 7pm : salad/rice/mixed vegetables snack:crackers/yogurt/pastry,fruit beverages: water, natural juices denies diarrhea/vomiting/nausea/ constipation PA: ADL etoh/smoking-denies BS Monitoring Most Recent Diabetes Results: Cholesterol, (<200) 197 mg/dL 08/22/24 HDL Cholesterol, (>40) 51 mg/dL 08/22/24 Triglycerides, (<150) 125 mg/dL 08/22/24 Creatinine, (0.5-1.4) 0.83 mg/dL 08/22/24 BUN, (9-16) 22 mg/dL H 08/22/24 Sodium, (135-145) 138 mmol/L 08/22/24 Potassium, (3.3-5.1) 4.3 mmol/L 08/22/24 Chloride, (96-108) 106 mmol/L 08/22/24 Carbon Dioxide, (22-29) 26 mmol/L 08/22/24 Calcium, (8.4-10.2) 10.5 mg/dL H Δ 08/22/24 AST, (5-31) 25 U/L 08/22/24 ALT, (0-31) 33 U/L H 08/22/24 Total Protein, (6.5-8.0) 7.6 g/dL 08/22/24 Albumin, (3.5-5.0) 4.6 g/dL 08/22/24 [facility] Medical History Vitamin D deficiency Nontoxic multinodular goiter HTN (hypertension) Aortic valve stenosis Nodular goiter Hyperparathyroidism Osteoporosis Diabetes Surgical History History of esophagogastroduodenoscopy (EGD) Family History Mother HTN (hypertension) Father No problems noted. Son Mental health disorder Social History Housing: Condominium Alcohol intake: former Patient Tobacco Use Status: Never used Tobacco service: No Current occupational status: retired Cognitive needs: No Hearing needs: No Vision needs: Yes Assessment & Plan Assessment & Plan (1) Diabetes mellitus type 2 in nonobese: Code(s): E11.9 - Type 2 diabetes mellitus without complications Category: Medical Plan: Wt: 64 Kg ( 04/07 ), 61kg(10/05) Est kcal needs as per MSJ: 1400 (40% carb, 30% protein/fat) Est fluid needs as per 25-30 ml/d: 1900 Est prot per day as per 1 g/kg bw: 64 Recommend fiber intake : 8-10 g per day and gradually increase to 25-28 g per day for women and 35-38 g for men or as tolerated Recommend sodium intake per day : less than 2300 mg Educated patient on: ( R = reviewed V = verbalizes understanding N/R = needs review N/A = not applicable * Food sources of carbohydrate, adequate serving sizes and its role in various health conditions: R V N/R * Differences between complex carbohydrates a simple carbohydrates, role of fiber in diet: R * Lean protein sources of foods: R V NR * Differences between types of fats and role in diet (mono on saturated fat fatty acids, saturated fatty acids, trans fats): R (relationship f high fat to BG level particularly high fat foods at night or when less active) * Food sources of sodium in salt and healthy modifications for heart health in kidney health: R * Vitamins and minerals: R V N/R * Healthy plate method concept: R V * Physical activity: Benefits a precaution: R * Hypoglycemia protocol (rule of 15): R V N/R * Dietary prevention of Hyperglycemia: R Patient Instructions: Keep hydrated by having water with meals/snacks Include a serving of protein at dinner and reduce portion of starch : example add a cup of milk and reduce rice or pasta by 1/3 cup less Coding Level of Care Code Nutr Indiv Subseq (20461) Diagnoses Diabetes mellitus type 2 in nonobese E11.9 Time Spent (min) 20
[2024-10-02 09:15] VITALS: BMI 27.2
== END 2024-10-02 09:46 | disposition home or self-care (01) ==
LOC: HO.ENCR 07:56
PROVIDERS: PCP Nurse Practitioner Family; Visit Provider Dietitian, Registered
DX: E11.9 Type 2 diabetes mellitus without complications (principal)

== ENCOUNTER 2024-10-02 07:55 | Outpatient (AMB) | payer OTHER, SELFPAY ==
[2024-10-02 08:03] VITALS: BP 142/68; PULSE 58; O2SAT 96; BMI 27.2
--- NOTE | 2024-10-02 08:03 | A.OFFVIS_ITS ---
Vital Signs 10/02/24 08:03 Height 4 ft 11 in Weight 134 lb 7.712 oz BMI 27.2 BP 142/68 H Position Sitting Pulse 58 Pulse Source Pulse Oximeter Pulse Oximetry (%) 96 Oxygen Delivery Method Room Air Intake Visit Reasons: T2DM and MNG Intake Note: Patient present today for Type 2 Diabetes Mellitus and MNG. Last Diabetic eye exam: Has an appt coming up this week Last Podiatry Visit: Patient does not see a Threader Random Glucose: 229 mg/dL HgA1C: 10.1%, 10/02/2024 Senior Core Java Developer Required: Yes Senior Core Java Developer Language: Dip Tube Assembler Machine Services: Senior Core Java Developer Present Senior Core Java Developer Name: PIPE Miranda Information Interpreted: non-clinical & clinical Accompanied by: Self / Same As Patient Allergies nickel (NICKEL) Allergy (Unknown, Verified 10/02/24 08:05) RASH HAIR DYE Allergy (Unknown, Uncoded 10/02/24 08:05) SWELLING latex Allergy (Unknown, Uncoded 10/02/24 08:05) itch leather products Allergy (Unknown, Uncoded 10/02/24 08:05) Unknown METAL Allergy (Unknown, Uncoded 10/02/24 08:05) RASH,ITCHING Medication List - Last Reconciled 10/02/24 by Gracia Gonzáles MD alcohol swabs (Alcohol Prep Pads) 1 pad topical DAILY amlodipine 10 mg PO DAILY 90 days ascorbate calcium (vitamin C) 500 mg PO DAILY blood sugar diagnostic use to check sugar once a day or if needed for sign and symptoms of hypo/hyperglycemia blood sugar diagnostic (Understoryuch Ultra Test strips) USE DIRECTED TWICE DAILY TO TEST BLOOD GLUCOSE blood-glucose meter (CaptricityTouch Ultra2 Meter) use to check sugar twice a day cetirizine 10 mg PO DAILY PRN cholecalciferol (vitamin D3) 50 mcg PO DAILY empagliflozin 25 mg PO DAILY [Grab bars Use As directed] lancets (BD Ultra-Fine II Lancets) Use to check blood sugar once daily or if needed for signs & symptoms of hypo/hyperglycemia lancets use to check sugar once a day or if needed for sign and symptoms of hypo/hyperglycemia lancets (OneTouch UltraSoft 2 Lancet) check blood sugar twice a day losartan 100 mg PO DAILY magnesium oxide 400 mg PO DAILY mecobalamin (vitamin B12) 1,000 mcg PO DAILY melatonin 3 mg PO BEDTIME PRN milk mqzz-dlclze-pnlnz-licoric 120-280 mg caps PO multivitamin 1 tab PO DAILY pioglitazone (Actos) 30 mg PO DAILY rosuvastatin 20 mg PO DAILY vitamin A palmitate 10,000 units PO DAILY vitamin E mixed units PO HPI Comments Details: 89 YO Female with PMHx type 2 diabetes, HLD, Osteoporosis, hyperparathyroidism and a multinodular goiter. Today she is here for follow up of Type 2 DM Type 2 DM At least since 2014 Per last PCP note August 2023 Patient's A1c in office is 9.3 down from previous value of 11.4. The only medication the patient is taking for diabetes is Jardiance 25 mg p.o. daily. However patient takes this inconsistently, closer to every other day. Patient declines the use of metformin, declines insulin. After several attempts patient continues to decline these medications even after discussion about the benefits of keeping sugar levels in control A1c September 04 9.3 % 10 % 11/23/23 9.4% POC 02/20/24 8.3 % Apr 07 9.3 % POC 07/03/24 HgA1C: 10.1%, POC 10/02/2024 today POC fasting glucose 229mg/dl Reports increased urination , denies increased thirst No nausea or vomiting , no abdominal pain Prior Meds OZempic 1 mg wekly, patient said caused itching and problems with swallowing , not willing to retry Current meds JArdiance 25 mg daily Actos 30 mg daily She is also not willing to try metformin, says aamirtrs to force it on me, it will not do me good , however she has not had any adverse effects to it in the past when asked. Not willing to try insulin right now. Not willing to go back on Ozempic. Or trying a GLP 1 agonist. SMBGs Glucometer again didnt bring today Hasnt checked sugars in 2 weeks , out of strips Microvascular complications No neuropathy Has microalbuminuria, normal kidney function Last eye visit September 2023, has eye exam this week no retinopathy per patient Macrovascular complications No heart attack or stroke BP at home 130s and then sometimes her blood pressure will drop to 120s. Per patient She takes losartan 100 mg UMCr ratio high at 36.9 04/07 Couldnt tolerate atorvastatin due to muscle aches, switch to rosuvastatin 20 mg in October 2023, tolerating that better. LDL Apr 07 :157 LDL August 2019 5:121 mg/dL Laboratory Tests 2) Multinodular goiter Prior HPI from Dr. Aguilar visit The patient underwent a thyroid US 11/16/18 to assess for a parathyroid adenoma. She was found to have multiple large thyroid nodules meeting indication for FNA biopsy. On 03/22/2019 she underwent FNA biopsy of the L mid pole 3.4 cm nodule with benign cytology (Milroy Category II). She underwent FNA biopsy also of the R mid pole 2.3 cm nodule with cytology revealing Atypia of Undetermined Significance (AUS - Milroy Category III). Affirma was benign. She opted for yearly surveillance with thyroid US. She denies any difficulty swallowing or compressive symptoms currently. Most recent US from August 04 showed stable size of her dominant 3.3 cm left lobe nodule but she has multiple other nodules. Based on mutual discussion with Dr. Mancini patient endorses that given her age she doesnt want aggressive measures like FNA or surgery and for now just wants to be followed clinically for the thyroid. Interval history Denies any more difficulty swallowing , says it stopped when she stopped the Ozempic Laboratory Tests 09/28/23 08:09 TSH 0.85 3)Osteoporosis/hyperparathyrodism: not addressed today but per last notes, patient doesnt want treatment for these DXA: 10/21/2020 FINDINGS: AP SPINE L1-L4: Current: BMD 0.942 g/cm2, Z-score 0.0, T-score -2.0, osteopenia, 6.4% increase from previous, 7.5% increase from baseline (<5% change is not significant). Prior: BMD 0.885 g/cm2. Baseline: BMD 0.876 g/cm2. LEFT FEMUR, NECK: Current: BMD 0.640 g/cm2, Z-score -0.5, T-score -2.9, osteoporosis. Prior: BMD 0.624 g/cm2. Baseline: BMD 0.701 g/cm2. LEFT FEMUR, TOTAL: Current: BMD 0.682 g/cm2, Z-score -0.3, T-score -2.6, osteoporosis, 0.0% change from previous, 11.8% decrease from baseline (<5% change is not significant). Prior: BMD 0.682 g/cm2. Baseline: BMD 0.773 g/cm2. Labs: Laboratory Tests 10/02/19 04/02/20 07/03/20 09:25 11:41 09:32 Calcium PTH Intact 108 H 79 H 99 H 09/28/23 08:09 Calcium 9.5 PTH Intact Physical exam General: sitting comfortably in bed in no acute distress HEENT: normocephalic/atraumatic, moist oral mucosa Neck: Palpable bilateral thyroid nodules. Cardiac: normal heart sounds Pulm: normal breath sounds B/L, no added breath sounds Abd: not distended, no tenderness Extremities: no edema, no signs of myxedema Neuro: AAO x3, Speech: normal, no facial droop, moving all 4 extremities Skin: no rash Foot exam: Done June 2024 intact sensation to monofilament, intact pulses, intact vibration Laboratory Tests 10/02/19 04/02/20 07/03/20 09:25 11:41 09:32 Sodium Potassium Creatinine Estimated GFR Hemoglobin A1c % Calcium Triglycerides Cholesterol LDL Cholesterol, Calc HDL Cholesterol 25-OH Vitamin D Total TSH PTH Intact 108 H 79 H 99 H Urine Creatinine Urine Microalbumin Microalb/Creat Ratio 09/28/23 03/21/24 08:09 09:00 Sodium 140 Potassium 4.8 Creatinine 0.83 Estimated GFR > 60 Hemoglobin A1c % 8.3 H Calcium 9.5 Triglycerides 105 Cholesterol 237 H LDL Cholesterol, Calc 157 H HDL Cholesterol 59 25-OH Vitamin D Total 76.1 TSH 0.85 PTH Intact Urine Creatinine 37.92 Urine Microalbumin 14.0 Microalb/Creat Ratio 36.9 H Laboratory Tests 08/22/24 08:20 Hgb 15.3 Hct 44.9 Plt Count 230 Sodium 138 Potassium 4.3 Creatinine 0.83 Estimated GFR > 60 Fasting Glucose 208 H Triglycerides 125 Cholesterol 197 LDL Cholesterol, Calc 121 H HDL Cholesterol 51 TSH 0.69 [facility] Medical History Vitamin D deficiency Nontoxic multinodular goiter HTN (hypertension) Aortic valve stenosis Nodular goiter Hyperparathyroidism Osteoporosis Diabetes Surgical History History of esophagogastroduodenoscopy (EGD) Family History Mother HTN (hypertension) Father No problems noted. Son Mental health disorder [facility] Alcohol intake: former Patient Tobacco Use Status: Never used Tobacco service: No Current occupational status: retired Cognitive needs: No Hearing needs: No Vision needs: Yes Physical Exam Vital Signs: Last Vital Signs Pulse 58 10/02/24 08:03 BP 142/68 H 10/02/24 08:03 Pulse Ox 96 10/02/24 08:03 Oxygen Delivery Method Room Air 10/02/24 08:03 BMI result Body Mass Index 27.2 Results AMB Hemoglobin A1c AMB Hemoglobin A1c 10.1 % Last Edit by PIPE Miranda on 10/02/24 08:2 5 Results Reviewed Results Reviewed: Laboratory Last Values Glucose (Clinic) 229 mg/dL (60-115) H 10/02/24 08:08 Assessment & Plan Assessment & Plan (1) Diabetes: Code(s): E11.9 - Type 2 diabetes mellitus without complications Category: Medical Qualifiers: Diabetes mellitus type: type 2 Diabetes mellitus fci insulin use: without buttermilk drier operator use Diabetes mellitus complication status: with hyperglycemia Qualified Code(s): E11.65 - Type 2 diabetes mellitus with hyperglycemia Plan: 89-year-old female with past medical history significant for type 2 diabetes mellitus without long-term insulin use with microalbuminuria A. Last HBA1c POC today 10/02/2024 up at 10.1% from 9.3% from POC 07/03/2024 which is up from 8.3% in March 2024 .. has a relatively higher CV risk as compared to the general population based on his diabetic status, hyperlipidemia ?and uncontrolled hypertension. Also has a history of aortic stenosis.. . She was counseled regarding taking insulin, metformin in the past however she refused. Again refused today. End 2023 she was prescribed Ozempic and was on the 1 mg dose up until early 2024 with me but she says the medication caused itching and difficulty swallowing. She says this all stopped after stopping the medication. While I did discuss with her that unlikely that Ozempic was causing difficulty swallowing, she is refusing to try any GLP 1 agonist. She is now back on Jardiance 25 mg daily. Last visit in June 2024 I also started Actos 30 mg daily. Today she is reporting she gets sleepy after taking Actos. I discussed with her that most likely her symptoms are from elevated blood sugars rather than the medication itself. Blood sugars in the 200s today. This is her fasting. no history of heart failure, no shortness of breath. At this point I would like to had a DPP 4 to her regimen. Per patient she has not tried these before. B:?Blood pressure is under suboptimal control, for renal protection in the setting of diabetes. Her blood pressures at home per patient is in the 130s but in clinic 140s to 160s most days. She is on losartan 100 mg daily. Saw cardiology December 2023 and amlodipine was up titrated , she is very opposed to new medications , however it is reassuring to know blood pressure is controlled at home. C:?LDL is 121 mg/dL from August 2024 which is down from 157 in March 2024 which is still above goal. Goal is less than 90. Patient is opposed to trying new medications. D:?Diet control and healthy lifestyle was discussed in detail. E: Last visit with residential appraiser was on 09/2023. No diabetic retinopathy. Has a upcoming appointment next week. F: Foot care is good. She has a referral for Podiatry but she has not seen them. G: eGFR >60 and microalbumin/Cr ratio 30.8 from March 2024 , she is already on losartan 100 mg daily. Plan: -continue Jardiance 25 mg daily -continue Actos 30 mg daily -start Tradjenta 5 mg daily -refuses metformin, insulin, GLP 1 agonist -continue to monitor blood sugars and bring glucometer to next appointment -educator and lens generating machine tender follow up -follow up in 8 weeks (2) Dyslipidemia: Code(s): E78.5 - Hyperlipidemia, unspecified Category: Medical Plan: LDL noted to be elevated at 121 mg/dL from August 2024 which is down from 157 from March 2024 at and was 165 mg/dL from 10/04. Goal is less than 90 mg/dL. She is at increased risk of stroke and cardiovascular, T. Advised patient about this. We had switched from atorvastatin 80 mg daily to rosuvastatin 20 mg daily because she was not adherent with the atorvastatin due to muscle aches. Plan: -continue rosuvastatin 20 mg daily -she is opposed to trying ezetimibe. Lifestyle modification advised. (3) Nontoxic multinodular goiter: Code(s): E04.2 - Nontoxic multinodular goiter Category: Medical Plan: The patient underwent a thyroid US 11/16/18 to assess for a parathyroid adenoma. She was found to have multiple large thyroid nodules meeting indication for FNA biopsy. On 03/22/2019 she underwent FNA biopsy of the L mid pole 3.4 cm nodule with benign cytology (Milroy Category II). She underwent FNA biopsy also of the R mid pole 2.3 cm nodule with cytology revealing Atypia of Undetermined Significance (AUS - Milroy Category III). Affirma was benign. She opted for yearly surveillance with thyroid US. Most recent US from August 04 showed stable size of her dominant 3.3 cm left lobe nodule but she has multiple other nodules. Based on mutual discussion with Dr. Mancini patient endorses that given her age she didnt want aggressive measures like FNA or surgery and for now just wants to be followed clinically for the thyroid. She currently denies any compressive symptoms. At this time we will follow her clinically and if she has any clinical symptoms we will plan to repeat an ultrasound. Plan I spent 30 minutes in reviewing the record, seeing the patient and documenting in the medical record. Orders: Orders AMB Hemoglobin A1c Today E11.65 - Type 2 diabetes mellitus with hyperglycemia Medications: New linagliptin (Tradjenta) 5 mg PO DAILY 30 tabs 5RF Changed From lancets (OneTouch UltraSoft 2 Lancet) check blood sugar twice a day 100 ea 6RF To lancets (OneTouch UltraSoft 2 Lancet) check blood sugar once a day 100 ea 6RF From blood sugar diagnostic (OneTouch Ultra Test strips) USE DIRECTED TWICE DAILY TO TEST BLOOD GLUCOSE 100 strips 5RF E11.9 - Type 2 diabetes mellitus without complications To blood sugar diagnostic (OneTouch Ultra Test strips) USE DIRECTED Once DAILY TO TEST BLOOD GLUCOSE 100 strips 5RF E11.9 - Type 2 diabetes mellitus without complications Patient Instructions: Continue Jardiance 25 mg daily Continue Actos 30 mg daily Start Tradjenta 5 mg daily Bring meter to next visit Check sugars once a day Continuar con Jardiance 25 mg al d?a Continuar con Actos 30 mg al d?a Iniciar con Tradjenta 5 mg al d?a Llevar el medidor a la pr?xima visita Controlar el az?car cal vez al d?a Coding Level of Care Code Est Pt Level 4 (19882) Complex EM visit Add On G2211 Diagnoses Type 2 diabetes mellitus with hyperglycemia, without long-term current use of insulin E11.65 Diabetes mellitus type: type 2 Diabetes mellitus fci insulin use: without buttermilk drier operator use Diabetes mellitus complication status: with hyperglycemia Dyslipidemia E78.5 Nontoxic multinodular goiter E04.2 Time Spent (min) 30
[2024-10-02 08:12] LABS: Glucose, Whole Blood 229 mg/dL (60-115)
== END 2024-10-02 08:27 | disposition home or self-care (01) ==
LOC: HO.ENCR 07:56
PROVIDERS: PCP Nurse Practitioner Family; Visit Provider Student in an Organized Health Care Education/Training Program
DX: E11.65 Type 2 diabetes mellitus with hyperglycemia (principal); E78.5 Hyperlipidemia, unspecified; E04.2 Nontoxic multinodular goiter
CPT/HCPCS: 99214; G2211

== ENCOUNTER → 2024-10-02 07:55 | Outpatient (BNVA) | payer OTHER, SELFPAY | PROVIDERS: PCP Nurse Practitioner Family; Visit Provider Student in an Organized Health Care Education/Training Program | DX: E11.65 Type 2 diabetes mellitus with hyperglycemia (principal); E04.2 Nontoxic multinodular goiter; E78.5 Hyperlipidemia, unspecified | CPT/HCPCS: 82947; 83036; 97803; 99212 ==

== ENCOUNTER 2024-10-15 06:57 | Outpatient (AMB) | payer OTHER, SELFPAY ==
--- NOTE | 2024-10-15 06:58 | A.OFFVIS_ITS ---
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 Name: Liss Khan Accompanied by: Self / Same As Patient Allergies nickel (NICKEL) Allergy (Unknown, Verified 10/02/24 08:05) RASH HAIR DYE Allergy (Unknown, Uncoded 10/02/24 08:05) SWELLING latex Allergy (Unknown, Uncoded 10/02/24 08:05) itch leather products Allergy (Unknown, Uncoded 10/02/24 08:05) Unknown METAL Allergy (Unknown, Uncoded 10/02/24 08:05) RASH,ITCHING HPI Comprehensive Diabetes Asmnt Most Recent Diabetes Results: Microalb/Creat Ratio, (<30) 36.9 ug/mg cr H 03/21/24 Cholesterol, (<200) 197 mg/dL 08/22/24 HDL Cholesterol, (>40) 51 mg/dL 08/22/24 Triglycerides, (<150) 125 mg/dL 08/22/24 Creatinine, (0.5-1.4) 0.83 mg/dL 08/22/24 BUN, (9-16) 22 mg/dL H 08/22/24 Sodium, (135-145) 138 mmol/L 08/22/24 Potassium, (3.3-5.1) 4.3 mmol/L 08/22/24 Chloride, (96-108) 106 mmol/L 08/22/24 Carbon Dioxide, (22-29) 26 mmol/L 08/22/24 Calcium, (8.4-10.2) 10.5 mg/dL H Δ 08/22/24 AST, (5-31) 25 U/L 08/22/24 ALT, (0-31) 33 U/L H 08/22/24 Total Protein, (6.5-8.0) 7.6 g/dL 08/22/24 Albumin, (3.5-5.0) 4.6 g/dL 08/22/24 [facility] Medical History Vitamin D deficiency Nontoxic multinodular goiter HTN (hypertension) Aortic valve stenosis Nodular goiter Hyperparathyroidism Osteoporosis Diabetes Surgical History History of esophagogastroduodenoscopy (EGD) Family History Mother HTN (hypertension) Father No problems noted. Son Mental health disorder Social History Housing: Condominium Alcohol intake: former Patient Tobacco Use Status: Never used Tobacco service: No Current occupational status: retired Cognitive needs: No Hearing needs: No Vision needs: Yes Assessment & Plan Assessment & Plan (1) Diabetes mellitus type 2 in nonobese: Code(s): E11.9 - Type 2 diabetes mellitus without complications Plan: Learning objectives: The patient was provided with verbal and written education on the following topics as outlined below. The patient met all learning objectives and was able to verbalize understanding and provide teach back of education topics discussed . The patient was provided with the opportunity to ask questions and all questions were answered. Patient Assessment Assess patient education level/literacy/barriers, patient lives with adult son who has recently been diagnosed with diabetes. 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 Patient's last A1c 10.2% on 10/02/2024 Patient reports she does not eat meat, protein comes from eggs, cheese, and beans Reports she is not read food labels. Suggested to patient she review food labels for portion size and total carbohydrate. Reduce amount of high carb foods and beverages brought into the house Exercise Medical clearance Effect of exercise on blood sugar Start slowly and gradually increase pace/duration over time Goal amount of exercise Checking blood glucose/have a source of carbs with you Diabetes Complications: ?Nephropathy :Kidney Disease ?diabetes can damage the kidneys, which is not only can cause them to fail but can make them lose their ability to filter waste from the blood? ?Retinopathy: Eye complications ?Retinopathy? is the commonest long-term complication of diabetes. It is leading cause of blindness Besides, Retinopathy- People with diabetes? are also prone to cataract and Glaucoma. ?Neuropathy: Nerve damage -It involves temporary or permanent damage to nerve tissue. Nerve tissue gets injured mainly due to decreased blood flow and rise in blood glucose levels. This damage can lead to pain , or loss of sensation it can also include sexual dysfunction in both men and women ? Infections poor healing: People with diabetes? have increased susceptibility to various infections, such as? pneumonias, pyelonephritis, carbuncles and diabetic ulcers. This may be due to poor blood supply, reduced cellular immunity or hyperglycemia. ?Heart Disease And Stroke: People with diabetes are four times more prone to develop Heart disease than those who do not have diabetes ?Depression: Feeling down once in awhile is normal, but some people feel sadness that just won't go away. Life for them seems hopeless. Feeling this way most of the day for two weeks or more is a sign of serious depression ?Gum Disease: People get gum disease when plaque destroys the gums and bone around the teeth. People with diabetes can get gum disease from having high blood glucose levels for a long time Lifestyle * Stress management * Problem solving Know your goals * A1C * Blood sugar targets * Blood pressure * Cholesterol/LDL The patient was provided with the following written educational materials: Target Goal handout Smart Goal Assessment:?Add water to high carb drinks Pt met goal 25% New Smart Goal: Contact [facility], [facility], for exercise class options Patient Response to instructions: Comprehension of Instructions: fair Readiness to make changes:? pre-contemplation How confident they feel about making changes:poor Portions of this note were created using voice recognition software, please excuse any words or phrases that may have been misinterpreted. (2) Diabetes: Code(s): E11.9 - Type 2 diabetes mellitus without complications Qualifiers: Diabetes mellitus type: type 2 Diabetes mellitus intermediate accountant insulin use: without fpc use Diabetes mellitus complication status: with hyperglycemia Qualified Code(s): E11.65 - Type 2 diabetes mellitus with hyperglycemia Plan: Diabetes self-management education and support participation record Assessment/scale: 1= needs instructed? 2= needs review? 3= comprehend keep point? 4= demonstrates understanding/ competent? NC= Not Covered Topics Learning Objective: Initial visit Initial or post srvc Initial or post srvc Initial or post srvc Initial or post srvc Initial or post srvc Post srvc Comments Pre Edu-assessment/plan Outcome or reassess Outcome or reassess Outcome or reassess Outcome or reassess Outcome or reassess Outcome or reassess Diabetes pathophysiology 1 Healthy eating 1 3 Being active 1 3 Taking medication 1 3 Monitoring glucose 1 3 Acute complication 1 Chronic complicated 1 3 Lifestyle and healthy coping 1 3 Diabetes distress in support 1 ?Diabetes pathophysiology: ?Defined diabetes med identify own type of diabetes; list 3 options for treating diabetes Healthy eating: ?Described effect of type, amount and ?timing of food on blood glucose; list 3 methods for planning meal Being active: ?State effect of exercise on blood glucose level Taking medication: ?State effect of diabetes medications on diabetes; name diabetes medications taking, action and side effects Monitoring glucose: ?Identify recommended blood glucose targets and personal target Acute complication: ?List symptoms and treatment of hyper and hypoglycemia, DKA, sick day guidelines and guidelines for severe weather or situations of crisis and diabetes supply manage Chronic complication: ?To find the relationship of blood glucose levels to long- term complications of diabetes in screening and preventative measures Lifestyle and healthy coping: ?Described lifestyle and healthy coping strategies to rule out diabetes self-management Diabetes to stress and support: ?Recognize Diabetes to stress and be able to identified support options Patient Instructions: Incluir actividad diaria regular. ADA recomienda 30 minutos de ejercicio 5 d?as a la semana. P?rdida de peso, hable con el PCP o el cardi?logo antes de comenzar un nuevo plan. Mida el nivel de az?car en la rahul seg?n las indicaciones; Ayuno y comida m?s opal de 2hpp. Observe las tendencias en los resultados. Utilice los resultados y eval?e c?mo los alimentos, la actividad f?ying y los medicamentos afectan los resultados de az?car en la rahul. Lleve el gluc?metro o CGM a la pr?xima visita. Conocer los medicamentos para la diabetes, davis acci?n, los efectos secundarios, la eficacia, la toxicidad, la dosis prescrita, el momento y la frecuencia de administraci?n apropiados, el efecto de las dosis olvidadas y retrasadas y las instrucciones de almacenamiento, viaje y seguridad. T?cnicas de resoluci?n de problemas para el seguimiento de episodios de hipo/hiperglucemia y tratamientos. Reducir los comportamientos de reducci?n de riesgos, dejar de fumar, ex?menes regulares de ojos, pies y dentales. Coding Level of Care Code Est Pt Level 1 (52114) Diagnoses Diabetes mellitus type 2 in nonobese E11.9 Type 2 diabetes mellitus with hyperglycemia, without long-term current use of insulin E11.65 Diabetes mellitus type: type 2 Diabetes mellitus intermediate accountant insulin use: without intermediate accountant use Diabetes mellitus complication status: with hyperglycemia
== END 2024-10-15 07:44 | disposition home or self-care (01) ==
LOC: HO.ENCR 06:58
PROVIDERS: PCP Nurse Practitioner Family; Visit Provider Registered Nurse Diabetes Educator
DX: E11.9 Type 2 diabetes mellitus without complications (principal); E11.65 Type 2 diabetes mellitus with hyperglycemia

== ENCOUNTER → 2024-10-15 06:57 | Outpatient (BNVA) | payer OTHER, SELFPAY | PROVIDERS: PCP Nurse Practitioner Family; Visit Provider Registered Nurse Diabetes Educator | DX: E11.9 Type 2 diabetes mellitus without complications (principal) | CPT/HCPCS: 99211 ==

== ENCOUNTER 2024-12-04 09:22 | Outpatient (AMB) | payer OTHER, SELFPAY ==
--- NOTE | 2024-12-04 10:21 | A.OFFVIS_ITS ---
VS Expanded 12/04/24 10:22 Height 4 ft 11 in Weight 138 lb 10 oz BMI 28.0 Intake Visit Reasons: T2DM Allergies nickel (NICKEL) Allergy (Unknown, Verified 12/04/24 09:32) RASH HAIR DYE Allergy (Unknown, Uncoded 12/04/24 09:32) SWELLING latex Allergy (Unknown, Uncoded 12/04/24 09:32) itch leather products Allergy (Unknown, Uncoded 12/04/24 09:32) Unknown METAL Allergy (Unknown, Uncoded 12/04/24 09:32) RASH,ITCHING Nutrition Presentation Details: Pt presents for MNT f/u for T2DM Pt met with inspecting machine adjuster and working on med management. Pt reports having good appetite, feeling well. Pt acknowledges choosing larger portion of starches. -reports choosing a variety of foods food frequency fruits: 2-3/d , including dried fruits ve-2/d (non starchy veg) fish: 0-1/wk dairy: alternatives 3 c/d starches > 20 serving/d physical activity: ADL etoh/smoking- denies reports taking a MVI on and off , vit A , E, melatonin, vit b12 (all on and off) PFSH Medical History Vitamin D deficiency Nontoxic multinodular goiter HTN (hypertension) Aortic valve stenosis Nodular goiter Hyperparathyroidism Osteoporosis Diabetes Surgical History History of esophagogastroduodenoscopy (EGD) Family History Mother HTN (hypertension) Father No problems noted. Son Mental health disorder Social History Housing: Condominium Alcohol intake: former Patient Tobacco Use Status: Never used Tobacco service: No Current occupational status: retired Cognitive needs: No Hearing needs: No Vision needs: Yes Assessment & Plan Assessment & Plan (1) Diabetes mellitus type 2 in nonobese: Code(s): E11.9 - Type 2 diabetes mellitus without complications Category: Medical Plan: Wt: 64 Kg ( 04/07 ), 61kg(10/05), 63 kg(12/06) Est kcal needs as per MSJ: 1400 (40% carb, 30% protein/fat) Est fluid needs as per 25-30 ml/d: 1900 Est prot per day as per 1 g/kg bw: 64 Recommend fiber intake : 8-10 g per day and gradually increase to 25-28 g per day for women and 35-38 g for men or as tolerated Recommend sodium intake per day : less than 2300 mg Educated patient on: ( R = reviewed V = verbalizes understanding N/R = needs review N/A = not applicable * Food sources of carbohydrate, adequate serving sizes and its role in various health conditions: R V * Differences between complex carbohydrates a simple carbohydrates, role of fiber in diet: R ,v * Lean protein sources of foods: R * Differences between types of fats and role in diet (mono on saturated fat fatty acids, saturated fatty acids, trans fats): R (relationship f high fat to BG level particularly high fat foods at night or when less active) * Food sources of sodium in salt and healthy modifications for heart health in kidney health: R * Vitamins and minerals: R * Healthy plate method concept: R V * Physical activity: Benefits a precaution: R * Hypoglycemia protocol (rule of 15): R V N/R * Dietary prevention of Hyperglycemia: R ,v Patient Instructions: Choose foods with no added sugars and watch on portion sizes of starches , reducing total carb at a meal to 60 g see list of no sugar added snack, meal ideas Coding Level of Care Code Nutr Indiv Subseq ([id number]) Diagnoses Diabetes mellitus type 2 in nonobese E11.9 Time Spent (min) 30
[2024-12-04 10:22] VITALS: BMI 28.0
== END 2024-12-04 11:38 | disposition home or self-care (01) ==
LOC: HO.ENCR 09:23
PROVIDERS: PCP Nurse Practitioner Family; Visit Provider Dietitian, Registered
DX: E11.9 Type 2 diabetes mellitus without complications (principal)

== ENCOUNTER 2024-12-04 09:22 | Outpatient (AMB) | payer OTHER, SELFPAY ==
[2024-12-04 09:24] VITALS: BP 156/76; PULSE 62; O2SAT 98; BMI 28.0
--- NOTE | 2024-12-04 09:24 | A.OFFVIS_ITS ---
Vital Signs 3 12/04/24 09:24 Height 4 ft 11 in Weight 138 lb 10.732 oz BMI 28.0 BP 156/76 H Blood Pressure Location Lt brachial Position Sitting Pulse 62 Pulse Source Pulse Oximeter Pulse Oximetry (%) 98 Oxygen Delivery Method Room Air Intake Visit Reasons: T2DM and MNG Intake Note: Patient present today for Type 2 Diabetes Mellitus and MNG. Last Diabetic eye exam: Last exam was on 10/05/24 Last Podiatry Visit: Doesn't have one but would like a referral. Random Glucose: 176 mg/dl HgA1C: 10.1% 10/02/24 Health Service Worker Required: Yes Health Service Worker Language: Aircraft Engine Specialist Services: Health Service Worker Present Health Service Worker Name: Jeane [id number] Information Interpreted: non-clinical & clinical Accompanied by: Self / Same As Patient Allergies nickel (NICKEL) Allergy (Unknown, Verified 12/04/24 09:32) RASH HAIR DYE Allergy (Unknown, Uncoded 12/04/24 09:32) SWELLING latex Allergy (Unknown, Uncoded 12/04/24 09:32) itch leather products Allergy (Unknown, Uncoded 12/04/24 09:32) Unknown METAL Allergy (Unknown, Uncoded 12/04/24 09:32) RASH,ITCHING Medication List - Last Reconciled 12/04/24 by Gracia Gonzáles MD alcohol swabs (Alcohol Prep Pads) 1 pad topical DAILY amlodipine 10 mg PO DAILY 90 days ascorbate calcium (vitamin C) 500 mg PO DAILY blood sugar diagnostic use to check sugar once a day or if needed for sign and symptoms of hypo/hyperglycemia blood sugar diagnostic ([employer] Ultra Test strips) USE DIRECTED Once DAILY TO TEST BLOOD GLUCOSE blood-glucose meter (MagiqTouch Ultra2 Meter) use to check sugar twice a day cetirizine 10 mg PO DAILY PRN cholecalciferol (vitamin D3) 50 mcg PO DAILY empagliflozin (Jardiance) 25 mg PO DAILY [Grab bars Use As directed] lancets (BD Ultra-Fine II Lancets) Use to check blood sugar once daily or if needed for signs & symptoms of hypo/hyperglycemia lancets use to check sugar once a day or if needed for sign and symptoms of hypo/hyperglycemia lancets ([employer] UltraSoft 2 Lancet) check blood sugar once a day linagliptin (Tradjenta) 5 mg PO DAILY losartan 100 mg PO DAILY magnesium oxide 400 mg PO DAILY mecobalamin (vitamin B12) 1,000 mcg PO DAILY melatonin 3 mg PO BEDTIME PRN milk fkmf-kttpch-phwzz-licoric 120-280 mg caps PO multivitamin 1 tab PO DAILY pioglitazone (Actos) 30 mg PO DAILY rosuvastatin 20 mg PO DAILY vitamin A palmitate 10,000 units PO DAILY vitamin E mixed units PO HPI Comments Details: 89 YO Female with PMHx type 2 diabetes, HLD, Osteoporosis, hyperparathyroidism and a multinodular goiter. Today she is here for follow up of Type 2 DM Type 2 DM At least since 2014 Per last PCP note August 2023 Patient's A1c in office is 9.3 down from previous value of 11.4. The only medication the patient is taking for diabetes is Jardiance 25 mg p.o. daily. However patient takes this inconsistently, closer to every other day. Patient declines the use of metformin, declines insulin. After several attempts patient continues to decline these medications even after discussion about the benefits of keeping sugar levels in control A1c September 04 9.3 % 10 % 11/23/23 9.4% POC 02/20/24 8.3 % Apr 07 9.3 % POC 07/03/24 HgA1C: 10.1%, POC 10/02/2024 Random Glucose: 176 mg/dl Reports increased urination , denies increased thirst No nausea or vomiting , no abdominal pain Prior Meds OZempic 1 mg wekly, patient said caused itching and problems with swallowing , not willing to retry Current meds JArdiance 25 mg daily Actos 30 mg daily ( stopped taking it was trying to paralyze me ) late October 2024 Tradjenta 5 mg dailt She is also not willing to try metformin, says aamirtrs to force it on me, it will not do me good , however she has not had any adverse effects to it in the past when asked. Not willing to try insulin right now. Not willing to go back on Ozempic. Or trying a GLP 1 agonist. SMBGs Microvascular complications No neuropathy Has microalbuminuria, normal kidney function Last eye visit September 2024, no retinopathy per patient Macrovascular complications No heart attack or stroke BP at home 130s and then sometimes her blood pressure will drop to 120s. Per patient She takes losartan 100 mg UMCr ratio high at 36.9 04/07 Couldnt tolerate atorvastatin due to muscle aches, switch to rosuvastatin 20 mg in October 2023, tolerating that better. LDL Apr 07 :157 LDL August 2024:121 mg/dL Laboratory Tests 2) Multinodular goiter Prior HPI from Dr. Aguilar visit The patient underwent a thyroid US 11/16/18 to assess for a parathyroid adenoma. She was found to have multiple large thyroid nodules meeting indication for FNA biopsy. On 03/22/2019 she underwent FNA biopsy of the L mid pole 3.4 cm nodule with benign cytology ([place] Category II). She underwent FNA biopsy also of the R mid pole 2.3 cm nodule with cytology revealing Atypia of Undetermined Significance (AUS - [place] Category III). Affirma was benign. She opted for yearly surveillance with thyroid US. She denies any difficulty swallowing or compressive symptoms currently. Most recent US from August 04 showed stable size of her dominant 3.3 cm left lobe nodule but she has multiple other nodules. Based on mutual discussion with Dr. Mancini patient endorses that given her age she doesnt want aggressive measures like FNA or surgery and for now just wants to be followed clinically for the thyroid. Interval history Denies any more difficulty swallowing , says it stopped when she stopped the Ozempic Laboratory Tests 09/28/23 08:09 TSH 0.85 3)Osteoporosis/hyperparathyrodism: not addressed today but per last notes, patient doesnt want treatment for these DXA: 10/21/2020 FINDINGS: AP SPINE L1-L4: Current: BMD 0.942 g/cm2, Z-score 0.0, T-score -2.0, osteopenia, 6.4% increase from previous, 7.5% increase from baseline (<5% change is not significant). Prior: BMD 0.885 g/cm2. Baseline: BMD 0.876 g/cm2. LEFT FEMUR, NECK: Current: BMD 0.640 g/cm2, Z-score -0.5, T-score -2.9, osteoporosis. Prior: BMD 0.624 g/cm2. Baseline: BMD 0.701 g/cm2. LEFT FEMUR, TOTAL: Current: BMD 0.682 g/cm2, Z-score -0.3, T-score -2.6, osteoporosis, 0.0% change from previous, 11.8% decrease from baseline (<5% change is not significant). Prior: BMD 0.682 g/cm2. Baseline: BMD 0.773 g/cm2. Labs: Laboratory Tests 10/02/19 04/02/20 07/03/20 09:25 11:41 09:32 Calcium PTH Intact 108 H 79 H 99 H 09/28/23 08:09 Calcium 9.5 PTH Intact Physical exam General: sitting comfortably in bed in no acute distress HEENT: normocephalic/atraumatic, moist oral mucosa Neck: Palpable bilateral thyroid nodules. Cardiac: normal heart sounds Pulm: normal breath sounds B/L, no added breath sounds Abd: not distended, no tenderness Extremities: no edema, no signs of myxedema Neuro: AAO x3, Speech: normal, no facial droop, moving all 4 extremities Skin: no rash Foot exam: Done June 2024 intact sensation to monofilament, intact pulses, intact vibration Laboratory Tests 10/02/19 04/02/20 07/03/20 09:25 11:41 09:32 Sodium Potassium Creatinine Estimated GFR Hemoglobin A1c % Calcium Triglycerides Cholesterol LDL Cholesterol, Calc HDL Cholesterol 25-OH Vitamin D Total TSH PTH Intact 108 H 79 H 99 H Urine Creatinine Urine Microalbumin Microalb/Creat Ratio 09/28/23 03/21/24 08:09 09:00 Sodium 140 Potassium 4.8 Creatinine 0.83 Estimated GFR > 60 Hemoglobin A1c % 8.3 H Calcium 9.5 Triglycerides 105 Cholesterol 237 H LDL Cholesterol, Calc 157 H HDL Cholesterol 59 25-OH Vitamin D Total 76.1 TSH 0.85 PTH Intact Urine Creatinine 37.92 Urine Microalbumin 14.0 Microalb/Creat Ratio 36.9 H Laboratory Tests 08/22/24 08:20 Hgb 15.3 Hct 44.9 Plt Count 230 Sodium 138 Potassium 4.3 Creatinine 0.83 Estimated GFR > 60 Fasting Glucose 208 H Triglycerides 125 Cholesterol 197 LDL Cholesterol, Calc 121 H HDL Cholesterol 51 [facility] History Vitamin D deficiency Nontoxic multinodular goiter HTN (hypertension) Aortic valve stenosis Nodular goiter Hyperparathyroidism Osteoporosis Diabetes Surgical History History of esophagogastroduodenoscopy (EGD) Family History Mother HTN (hypertension) Father No problems noted. Son Mental health disorder Social History Housing: Condominium Alcohol intake: former Patient Tobacco Use Status: Never used Tobacco service: No Current occupational status: retired Cognitive needs: No Hearing needs: No Vision needs: Yes Physical Exam Vital Signs: Last Vital Signs Pulse 62 12/04/24 09:24 BP 156/76 H 12/04/24 09:24 Pulse Ox 98 12/04/24 09:24 Oxygen Delivery Method Room Air 12/04/24 09:24 BMI result Body Mass Index 28.0 Assessment & Plan Assessment & Plan (1) Diabetes: Code(s): E11.9 - Type 2 diabetes mellitus without complications Category: Medical Qualifiers: Diabetes mellitus type: type 2 Diabetes mellitus creative art therapist insulin use: without creative art therapist use Diabetes mellitus complication status: with hyperglycemia Qualified Code(s): E11.65 - Type 2 diabetes mellitus with hyperglycemia Plan: 89-year-old female with past medical history significant for type 2 diabetes mellitus without long-term insulin use with microalbuminuria A. Last HBA1c POC today 10/02/2024 up at 10.1% from 9.3% from POC 07/03/2024 which is up from 8.3% in March 2024 .. has a relatively higher CV risk as compared to the general population based on his diabetic status, hyperlipidemia ?and uncontrolled hypertension. Also has a history of aortic stenosis.. . She was counseled regarding taking insulin, metformin in the past however she refused. Again refused today. End of 2023 she was prescribed Ozempic and was on the 1 mg dose up until early 2024 with me but she says the medication caused itching and difficulty swallowing. She says this all stopped after stopping the medication. While I did discuss with her that unlikely that Ozempic was causing difficulty swallowing, she is refusing to try any GLP 1 agonist. She is now back on Jardiance 25 mg daily. in June 2024 I also started Actos 30 mg daily. Previous visit she was reporting she gets sleepy after taking Actos and today she says she has been getting prior lysing feeling after taking Actos and stopped taking it October 2024. We discussed in detail today that at this point patient is refusing metformin, insulin, any GLP 1 agonist, and she is refusing to go on any other new medications. She would like to continue her current regimen. I did explain to her that her blood sugars are elevated in the 200s on her POC is, and she is at high-risk of stroke and heart attack. Patient verbalized understanding but would like to remain on her current regimen. B:?Blood pressure is under suboptimal control, for renal protection in the setting of diabetes. Her blood pressures at home per patient is in the 130s but in clinic 140s to 160s most days. She is on losartan 100 mg daily. Saw cardiology December 2023 and amlodipine was up titrated , she is very opposed to new medications , however it is reassuring to know blood pressure is controlled at home. C:?LDL is 121 mg/dL from August 2024 which is down from 157 in March 2024 which is still above goal. Goal is less than 90. Patient is opposed to trying new medications. D:?Diet control and healthy lifestyle was discussed in detail. E: Last visit with grants officer was on 09/2024 No diabetic retinopathy. F: Foot care is good. She has a referral for Podiatry but she has not seen them. G: eGFR >60 and microalbumin/Cr ratio 30.8 from March 2024 , she is already on losartan 100 mg daily. Plan: -continue Jardiance 25 mg daily -continue Tradjenta 5 mg daily -refuses metformin, insulin, GLP 1 agonist, pioglitazone, any another new medication -continue to monitor blood sugars and bring glucometer to next appointment -educator and operating systems programmer follow up -f follow up in 6 months (2) Dyslipidemia: Code(s): E78.5 - Hyperlipidemia, unspecified Category: Medical Plan: LDL noted to be elevated at 121 mg/dL from August 2024 which is down from 157 from March 2024 at and was 165 mg/dL from 10/04. Goal is less than 90 mg/dL. She is at increased risk of stroke and cardiovascular, T. Advised patient about this. We had switched from atorvastatin 80 mg daily to rosuvastatin 20 mg daily because she was not adherent with the atorvastatin due to muscle aches. Plan: -continue rosuvastatin 20 mg daily -she is opposed to trying ezetimibe. Lifestyle modification advised. (3) Nontoxic multinodular goiter: Code(s): E04.2 - Nontoxic multinodular goiter Category: Medical Plan: The patient underwent a thyroid US 11/16/18 to assess for a parathyroid adenoma. She was found to have multiple large thyroid nodules meeting indication for FNA biopsy. On 03/22/2019 she underwent FNA biopsy of the L mid pole 3.4 cm nodule with benign cytology ([place] Category II). She underwent FNA biopsy also of the R mid pole 2.3 cm nodule with cytology revealing Atypia of Undetermined Significance (AUS - [place] Category III). Affirma was benign. She opted for yearly surveillance with thyroid US. Most recent US from August 04 showed stable size of her dominant 3.3 cm left lobe nodule but she has multiple other nodules. Based on mutual discussion with Dr. Mancini patient endorses that given her age she didnt want aggressive measures like FNA or surgery and for now just wants to be followed clinically for the thyroid. She currently denies any compressive symptoms. At this time we will follow her clinically and if she has any clinical symptoms we will plan to repeat an ultrasound. Plan I spent 30 minutes in reviewing the record, seeing the patient and documenting in the medical record. Medications: New 2 empagliflozin (Jardiance) 25 mg PO DAILY 30 tabs 6RF Refilled 2 linagliptin (Tradjenta) 5 mg PO DAILY 30 tabs 8RF rosuvastatin 20 mg PO DAILY 90 tabs 2RF blood sugar diagnostic (OneTouch Ultra Test strips) USE DIRECTED Once DAILY TO TEST BLOOD GLUCOSE 100 strips 5RF E11.9 - Type 2 diabetes mellitus without complications Discontinued 2 pioglitazone (Actos) Discontinued Reason: Doctor's Order 30 mg PO DAILY 30 tabs 6RF Coding Level of Care Code Est Pt Level 4 (30069) Complex EM visit Add On [id number] Diagnoses Type 2 diabetes mellitus with hyperglycemia, without long-term current use of insulin E11.65 Diabetes mellitus type: type 2 Diabetes mellitus creative art therapist insulin use: without creative art therapist use Diabetes mellitus complication status: with hyperglycemia Dyslipidemia E78.5 Nontoxic multinodular goiter E04.2 Time Spent (min) 30
== END 2024-12-04 09:58 | disposition home or self-care (01) ==
LOC: HO.ENCR 09:23
PROVIDERS: PCP Nurse Practitioner Family; Visit Provider Student in an Organized Health Care Education/Training Program
DX: E11.65 Type 2 diabetes mellitus with hyperglycemia (principal); E78.5 Hyperlipidemia, unspecified; E04.2 Nontoxic multinodular goiter
CPT/HCPCS: 99214; G2211

== ENCOUNTER → 2024-12-04 09:22 | Outpatient (BNVA) | payer OTHER, SELFPAY | PROVIDERS: PCP Nurse Practitioner Family; Visit Provider Dietitian, Registered | DX: E11.9 Type 2 diabetes mellitus without complications (principal); Z79.84 Long term (current) use of oral hypoglycemic drugs | CPT/HCPCS: 82947; 97803; 99212 ==

== ENCOUNTER 2025-01-21 07:37 | Outpatient (AMB) | payer OTHER, SELFPAY ==
[2025-01-21 08:13] VITALS: BP 168/72; PULSE 58; BMI 28.1
--- NOTE | 2025-01-21 08:13 | A.OFFVIS_ITS ---
Vital Signs 01/21/25 08:13 Height 4 ft 11 in Weight 139 lb 5.314 oz BMI 28.1 BP 168/72 H Blood Pressure Location Lt brachial Position Sitting Pulse 58 Pulse Source Monitor Intake Visit Reasons: r/s by us- 1 yr f/up Service Observer Required: Yes Service Observer Language: Vp Clinical Research Name: fadi corbin [id number] Allergies nickel (NICKEL) Allergy (Unknown, Verified 01/21/25 08:15) RASH HAIR DYE Allergy (Unknown, Uncoded 01/21/25 08:15) SWELLING latex Allergy (Unknown, Uncoded 01/21/25 08:15) itch leather products Allergy (Unknown, Uncoded 01/21/25 08:15) Unknown METAL Allergy (Unknown, Uncoded 01/21/25 08:15) RASH,ITCHING Medication List - Last Reconciled 01/21/25 by Alicia Ochoa NP-C alcohol swabs (Alcohol Prep Pads) 1 pad topical DAILY amlodipine 10 mg PO DAILY 90 days ascorbate calcium (vitamin C) 500 mg PO DAILY blood sugar diagnostic use to check sugar once a day or if needed for sign and symptoms of hypo/hyperglycemia blood sugar diagnostic ([place] PCuch Ultra Test strips) USE DIRECTED Once DAILY TO TEST BLOOD GLUCOSE blood-glucose meter ([place] PCuch Ultra2 Meter) use to check sugar twice a day cetirizine 10 mg PO DAILY PRN cholecalciferol (vitamin D3) 50 mcg PO DAILY empagliflozin (Jardiance) 25 mg PO DAILY [Grab bars Use As directed] lancets (BD Ultra-Fine II Lancets) Use to check blood sugar once daily or if needed for signs & symptoms of hypo/hyperglycemia lancets use to check sugar once a day or if needed for sign and symptoms of hypo/hyperglycemia lancets (SageCloudTouch UltraSoft 2 Lancet) check blood sugar once a day linagliptin (Tradjenta) 5 mg PO DAILY losartan 100 mg PO DAILY magnesium oxide 400 mg PO DAILY mecobalamin (vitamin B12) 1,000 mcg PO DAILY melatonin 3 mg PO BEDTIME PRN milk awrh-ilkbnk-pmiwo-licoric 120-280 mg caps PO multivitamin 1 tab PO DAILY rosuvastatin 20 mg PO DAILY vitamin A palmitate 10,000 units PO DAILY vitamin E mixed units PO HPI HPI r/s by us- 1 yr f/up: Details: Edidma an 89-year-old female with past medical history of hypertension, diabe antonina, mild aortic stenosis who presents for follow-up. Today she reports she has been doing well with no concerning symptoms. She denies chest discomfort at rest or with activity. No shortness of breath, PND, orthopnea or edema. No lightheadedness, presyncope, syncope, falls. She does light activities around the home. She lives with her son. Taking all meds as directed. She did not take her medications yet today since she did not have breakfast yet. Home blood pressures reported being 137-152 systolic. [facility] Medical History Vitamin D deficiency Nontoxic multinodular goiter HTN (hypertension) Aortic valve stenosis Nodular goiter Hyperparathyroidism Osteoporosis Diabetes Surgical History History of esophagogastroduodenoscopy (EGD) Family History Mother HTN (hypertension) Father No problems noted. Son Mental health disorder Social History Housing: Condominium Alcohol intake: former Patient Tobacco Use Status: Never used Tobacco service: No Current occupational status: retired Cognitive needs: No Hearing needs: No Vision needs: Yes Review of Systems Const All systems reviewed & are unremarkable except as noted in HPI and below ENT Denies dizziness Card Denies chest pain, Denies chest pain at rest, Denies chest pain with activity, Denies rapid heart rate, Denies pedal edema, Denies edema, Denies leg edema, Denies lightheadedness, Denies palpitations, Denies dyspnea, Denies dyspnea on exertion and Denies orthopnea Resp Denies cough, Denies dyspnea and Denies dyspnea on exertion GI Denies hematochezia and Denies change in stool character Musc Denies abnormal gait, Denies limited range of motion, Denies muscle cramps, Denies muscle weakness, Denies numbness, Denies radiating pain into limb, Denies stiffness and Denies tingling Neuro Denies abnormal gait, Denies dizziness, Denies numbness and Denies tingling Endo Denies palpitations Physical Exam Vital Signs: Last Vital Signs Pulse 58 01/21/25 08:13 BP 168/72 H 01/21/25 08:13 BMI result Body Mass Index 28.1 Const General: cooperative, healthy appearing, comfortable and no acute distress Orientation/consciousness: patient oriented x3 Neck Neck: Yes normal visual inspection Resp Effort & Inspection: normal respiratory effort Auscultation: clear to auscultation bilaterally, no rales, no rhonchi and no wheezes Cardio Rate: regular rate Rhythm: regular rhythm Heart sounds: S1 normal heart sound present, S2 normal heart sound present, no gallops, no murmurs and no rubs Neuro General: patient oriented x3 Extrem General: Yes normal to inspection, No no pedal edema and No calf tenderness Psych Appearance: grossly normal Mental Status: mental status grossly normal Speech and movement: Normal speech and movement present Office Procedures EKG Details: Today read by me, sinus bradycardia, nonspecific T wave abn, rate 58, Qtc 414ms [id number], Complete Assessment & Plan Assessment & Plan (1) HTN (hypertension): Code(s): I10 - Essential (primary) hypertension Category: Medical Qualifiers: Hypertension type: unspecified Qualified Code(s): I10 - Essential (primary) hypertension Plan: [place] blood pressure goal less than 140/90 in his elderly female. Blood pressure today initially 168/72, recheck done by me 158/78. She did not take her medications yet today. Labs 08/22/2024 showed creatinine 0.83. Continue current amlodipine and losartan. If blood pressure elevated at upcoming PCP visit then consider adding hydralazine 10 mg b.i.d.. Reviewed low-salt diet. Cardiology follow-up 1 year, sooner if needed. (2) Aortic valve stenosis: Comment: Will get referral to Cardiology. Patient also has a history of abnormal EKG. Code(s): I35.0 - Nonrheumatic aortic (valve) stenosis Category: Medical Qualifiers: Cardiac valve disease etiology: etiology unspecified Qualified Code(s): I35.0 - Nonrheumatic aortic (valve) stenosis Plan: Prior echo showing mild aortic stenosis. Last echo 08/29/2023 showing EF greater than 70%, grade 1 diastolic dysfunction, mild LVH, no significant aortic stenosis. No murmur noted on exam. (3) Dyslipidemia: Code(s): E78.5 - Hyperlipidemia, unspecified Category: Medical Plan: LDL goal less than 100. Followed by PCP. Continue rosuvastatin. Plan Time spent on chart review, documentation, interview, assessment Coding Level of Care Code Est Pt Level 3 (08125) Complex EM visit Add On G2211 Diagnoses HTN (hypertension) I10 Hypertension type: unspecified Aortic valve stenosis, etiology of cardiac valve disease unspecified I35.0 Cardiac valve disease etiology: etiology unspecified Dyslipidemia E78.5 CPT Codes EKG - CPT: [id number], Complete ([id number]) Time Spent (min) 24
== END 2025-01-21 08:37 | disposition home or self-care (01) ==
LOC: HO.HCS 07:38
PROVIDERS: PCP Nurse Practitioner Family; Visit Provider Nurse Practitioner Family
DX: I10 Essential (primary) hypertension (principal); I35.0 Nonrheumatic aortic (valve) stenosis; E78.5 Hyperlipidemia, unspecified
CPT/HCPCS: 93010; 99213; G2211

== ENCOUNTER → 2025-01-21 07:37 | Outpatient (BNVA) | payer OTHER, SELFPAY | PROVIDERS: PCP Nurse Practitioner Family; Visit Provider Nurse Practitioner Family | DX: I35.0 Nonrheumatic aortic (valve) stenosis (principal); I10 Essential (primary) hypertension; E78.5 Hyperlipidemia, unspecified | CPT/HCPCS: 93005; 99212 ==

== ENCOUNTER 2025-02-25 08:15 | Outpatient (AMB) | payer OTHER, SELFPAY ==
[2025-02-25 08:23] VITALS: BP 172/92; PULSE 62; RESP 16; O2SAT 99; BMI 28.3
--- NOTE | 2025-02-25 08:23 | MHC.PC.OV ---
Vital Signs 02/25/25 08:23 Height 4 ft 11 in Weight 140 lb BMI 28.3 BP 172/92 H Blood Pressure Location Lt brachial Position Sitting Respiration 16 Pulse 62 Pulse Source Pulse Oximeter Pulse Oximetry (%) 99 Oxygen Delivery Method Room Air Intake Visit Reasons: 6 months f/up Sericulture Teacher Required: No Accompanied by: Self / Same As Patient Allergies nickel (NICKEL) Allergy (Unknown, Verified 02/25/25 08:24) RASH HAIR DYE Allergy (Unknown, Uncoded 01/21/25 08:15) SWELLING latex Allergy (Unknown, Uncoded 01/21/25 08:15) itch leather products Allergy (Unknown, Uncoded 01/21/25 08:15) Unknown METAL Allergy (Unknown, Uncoded 01/21/25 08:15) RASH,ITCHING Tobacco use date assessed: 02/25/25 Fall risk assessment: No Falls in past year Last assessed Fall Risk: 02/25/25 Dental Screening Dental Screen Date: 02/25/25 Did you have a dental visit in the last 12 months?: Yes Did you have a dental problem in the last 6 months where you did not have access to dental care?: No Was dental information given to patient?: Patient has dentist HPI 6 months f/up HPI Details Chief Complaint Patient presents for a follow-up visit for management of chronic conditions. History of Present Illness The patient is an 89 year old female presenting for a follow-up visit. She has a history of type 2 diabetes and is followed by an lounge car attendant; her most recent A1c was 9.7. She has an upcoming appointment with endocrinology. Regarding her hypertension, she reports that her blood pressure readings at home remain elevated, though better than in the office, with readings between 130-135 mmHg systolic and a high of 160 mmHg systolic. She continues to follow with her cardiology team. Her medical history is also significant for aortic stenosis with a positive systolic murmur. Social History Health Maintenance - Recommended to obtain yearly eye exams. - Advised to complete lab work no later than mid-March. Review of Systems Physical Exam General: Cooperative, healthy appearing, comfortable, no acute distress and well developed Orientation: Patient oriented x3 Limitations: No limitations Head: Normal to inspection Ears: Hearing grossly normal bilaterally Nose: Normal external nose present Face and sinus: Normal facial exam Eyes: Appearance normal, both eyes and all related structures Neck: Normal visual inspection and Yes full ROM Respiratory: Lungs are actually fairly clear Cardiovascular: Regular rate and rhythm. Positive systolic murmur. Normal S1 and S2 GI: Normal to inspection. Soft to palpation and nontender Skin: No rashes or lesions noted Neuro: Patient oriented x3 Extremities: Feet were intact with positive sensation Results - Labs: Hemoglobin A1c is 9.7%. Plan 1. Type 2 Diabetes Mellitus The patient's A1c is noted to be 9.7. She will continue to follow with her endocrinology team and has an upcoming appointment. The patient was encouraged to get her lab work done in early to mid-March and to continue with yearly eye exams. 2. Hypertension The patient's blood pressure remains elevated at home, with a systolic range of 130-160 mmHg. Based on the recommendation from her cardiology team, a new prescription for hydralazine twice a day will be started. She will continue to follow up with cardiology. Discussion Notes I reviewed the patient's elevated A1c of 9.7, and we discussed that she has an upcoming appointment with her lounge car attendant for further management. We discussed her blood pressure, which remains elevated, and my plan to start hydralazine twice daily as recommended by her cardiology team, whom she will continue to see. I strongly encouraged her to complete her lab work no later than mid-March and to get her yearly eye exam. Patient Instructions - You will start taking a new blood pressure medication, hydralazine, twice a day. This was recommended by your heart doctor. - Please make sure to go to your upcoming appointment with the lounge car attendant (diabetes doctor). - You need to get your blood tests done soon, no later than the middle of March. - Remember to get your eyes checked once a year. - Continue to follow up with your cardiology (heart) team. [facility] Medical History Vitamin D deficiency Nontoxic multinodular goiter HTN (hypertension) Aortic valve stenosis Nodular goiter Hyperparathyroidism Osteoporosis Diabetes Surgical History History of esophagogastroduodenoscopy (EGD) Family History Mother HTN (hypertension) Father No problems noted. Son Mental health disorder Social History Housing: Condominium Alcohol intake: former Patient Tobacco Use Status: Never used Tobacco service: No Current occupational status: retired Cognitive needs: No Hearing needs: No Vision needs: Yes Questionnaire PHQ-9 Over the last 2 weeks, how often have you been bothered by any of the following problems? 1. Little interest or pleasure in doing things: not at all 2. Feeling down, depressed, or hopeless: not at all 3. Trouble falling or staying asleep, or sleeping too much: several days 4. Feeling tired or having little energy: several days 5. Poor appetite or overeating: not at all 6. Feeling bad about yourself - or that you are a failure or have let yourself or your family down: not at all 7. Trouble concentrating on things, such as reading the newspaper or watching television: not at all 8. Moving or speaking so slowly that other people could have noticed. Or the opposite - being so fidgety or restless that you have been moving around a lot more than usual: not at all 9. Thoughts that you would be better off or of hurting yourself in some way: not at all Total score: 2 Depression Screening Interpretation: Negative Depression Screening Done: Yes 18626 - PHQ-9 Billing: Yes Source: Developed by Drs. Dyllan Diaz, Claire Segura, Darian Cortez and colleagues, with an educational jan from [employer]. Thrive Questionnaire Date Thrive assessed: 08/28/24 I am a: Patient What is your living situation today?: I choose not to answer this question Within the past 12 months, did the food you bought not last and you didn't have the money to get more?: I choose not to answer this question Within the past 12 months, did you worry whether your food would run out before you got money to buy more?: I choose not to answer this question Do you have trouble paying for medicines?: No Do you have trouble getting transportation to medical appointments?: No Do you have trouble paying your heating and electricity bill?: I choose not to answer this question Do you have trouble taking care of your child, family member or friend?: No Do you have trouble with day-to-day activities such as bathing, preparing meals, shopping, managing finances, etc.?: No Are you currently unemployed and looking for a job?: I choose not to answer this question Are you interested in more education?: I choose not to answer this question THRIVE Score: 0 ELY-7 AMB Questionnaire ELY-7 Date ELY - 7 assessed: 05/21/24 Feeling nervous, anxious, or on edge: 0 = Not at all Not being able to stop or control worryin = Not at all Worrying too much about different things: 0 = Not at all Trouble relaxin = Not at all Being so restless that it is hard to sit still: 0 = Not at all Becoming easily annoyed or irritable: 0 = Not at all Feeling afraid as if something awful might happen: 0 = Not at all Total ELY-7 score (0-4 normal; 5-9 mild; 10-14 moderate; 15-21 severe): 0 Source: Developed by Drs. Dyllan Diaz, Claire Segura, Darian Cortez and colleagues, with an educational jan from [employer]. ELY-7 Assessment Billing ELY-7 Assessment Tool: ELY-7 Assessment 02457 Physical exam (Primary Care) Vital Signs: Last Vital Signs Pulse 62 02/25/25 08:23 Resp 16 02/25/25 08:23 BP 172/92 H 02/25/25 08:23 Pulse Ox 99 02/25/25 08:23 Oxygen Delivery Method Room Air 02/25/25 08:23 BMI result Body Mass Index 28.3 Tobacco/Smoking Status: Tobacco use Status Tobacco use date assessed 02/25/25 02/25/25 08:25 Patient Tobacco Use Status Never used Tobacco 02/25/25 08:25 PHQ-9: PHQ-9 Score PHQ-9: Total score 2 02/25/25 08:44 Depression Screening Interpretation: Negative Thrive Assessment: Date of Thrive Assessment Date Thrive assessed 08/28/24 02/25/25 08:25 Results AMB Hemoglobin A1c AMB Hemoglobin A1c 9.7 % Last Edit by Izabella Barone MA on 02/25/25 08:53 Results Reviewed Results Reviewed: Laboratory Last Values Hgb A1c (Clinic) 9.7 % (4.0-6.0) H 02/25/25 08:25 Coding Level of Care Code Est Pt Level 3 (94843) Diagnoses Type 2 diabetes mellitus with hyperglycemia, without long-term current use of insulin E11.65 Diabetes mellitus complication status: with hyperglycemia Diabetes mellitus terminal block assembler insulin use: without terminal block assembler use Diabetes mellitus type: type 2 Vitamin D deficiency E55.9 Additional Codes ELY-7 Assessment Billing - ELY-7 Assessment Tool: ELY-7 Assessment 76995 ([id number]) PHQ-9 - 31436 - PHQ-9 Billing: Yes ([id number]) Assessment & Plan Assessment & Plan (1) Diabetes: Code(s): E11.9 - Type 2 diabetes mellitus without complications Category: Medical Qualifiers: Diabetes mellitus complication status: with hyperglycemia Diabetes mellitus terminal block assembler insulin use: without terminal block assembler use Diabetes mellitus type: type 2 Qualified Code(s): E11.65 - Type 2 diabetes mellitus with hyperglycemia (2) Vitamin D deficiency: Code(s): E55.9 - Vitamin D deficiency, unspecified Category: Medical Plan . Orders: Orders AMB Hemoglobin A1c Today E11.65 - Type 2 diabetes mellitus with hyperglycemia, E11.9 - Type 2 diabetes mellitus without complications Complete Blood Count Auto Diff Today E11.65 - Type 2 diabetes mellitus with hyperglycemia Comprehensive [place]. Panel Fast Today E11.65 - Type 2 diabetes mellitus with hyperglycemia UA CC w/rflx Micro + Cult Today E11.65 - Type 2 diabetes mellitus with hyperglycemia Lipid Panel Today E11.65 - Type 2 diabetes mellitus with hyperglycemia Microalbumin, Random (w Creat) Today E11.65 - Type 2 diabetes mellitus with hyperglycemia TSH reflex Free T4 Today E11.65 - Type 2 diabetes mellitus with hyperglycemia Vitamin D 25-OH Total Today E11.65 - Type 2 diabetes mellitus with hyperglycemia, E55.9 - Vitamin D deficiency, unspecified Medications: New chromium picolinate 200 mcg PO DAILY 90 tabs 0RF hydralazine 10 mg PO BID 60 tabs 3RF 30 days
== END 2025-02-25 11:37 | disposition home or self-care (01) ==
LOC: HO.HMCC 08:15
PROVIDERS: PCP Nurse Practitioner Family; Visit Provider Nurse Practitioner Family
DX: E11.65 Type 2 diabetes mellitus with hyperglycemia (principal); E55.9 Vitamin D deficiency, unspecified; E11.9 Type 2 diabetes mellitus without complications

== ENCOUNTER → 2025-02-25 08:15 | Outpatient (BNVA) | payer OTHER, SELFPAY | PROVIDERS: PCP Nurse Practitioner Family; Visit Provider Nurse Practitioner Family | DX: E11.65 Type 2 diabetes mellitus with hyperglycemia (principal); E55.9 Vitamin D deficiency, unspecified | CPT/HCPCS: 83036; 96127; 99212 ==